=== PATIENT | male | born 1960 | race Caucasian/White ===

== ENCOUNTER → 2018-09-01 20:15 | Outpatient (REF) | payer OTHER, MEDICAID, SELFPAY ==
[2018-09-01 20:33] LABS: Add Manual Diff / Slide Review NO; Basophils Absolute Auto 0 /uL (0-100); Basophils Percent Auto 0.7 % (0-2); Eosinophils Absolute Auto 200 /uL (0-450); Eosinophils Percent Auto 3.9 % (2-4); Hematocrit 44.3 % (41-53); Hemoglobin 15.2 g/dL (13.5-17.5); Lymphocytes Absolute Auto 1000 /uL (1100-4500); Lymphocytes Percent Auto 19.1 % (25-40); Mean Corpuscular HGB Conc 34.3 % (30-36); Mean Corpuscular Hemoglobin 31.6 PG (26-34); Mean Corpuscular Volume 92.1 fL (80-100); Monocytes Absolute Auto 600 /uL (0-900); Monocytes Percent Auto 12.2 % (3-14); Neutrophils Absolute Auto 3300 /uL (1500-7000); Neutrophils Percent Auto 64.1 % (50-75); Platelet Count 230 X10^3/uL (150-400); Red Blood Cell Count 4.81 X10^6/uL (4.5-5.9); Red Cell Distribution Width 14.2 % (11.6-14.8); White Blood Cell Count 5.2 X10^3/uL (4.5-11.0)
[2018-09-02 02:19] LABS: Alanine Aminotransferase 33 IU/L (21-72); Albumin 4.3 g/dL (3.5-5.0); Albumin Globulin Ratio 1.7 (1.0-2.8); Alkaline Phosphatase 76 U/L (38-126); Aspartate Aminotransferase 25 IU/L (17-59); Bilirubin Total 0.3 mg/dL (0.2-1.3); Blood Urea Nitrogen 14 mg/dL (9-20); Calcium 9.4 mg/dL (8.4-10.2); Carbon Dioxide 26 mmol/L (22-32); Chloride 102 mmol/L (98-107); Estimated Glomerular Filt Rate > 60.0 mL/min (>60); Globulin 2.6 g/dL (1.7-4.1); Glucose 89 mg/dL (70-100); HEMOLYSIS < 15 (0-50); Sodium 139 mmol/L (137-145); Total Protein 6.9 g/dL (6.3-8.2)
[2018-09-02 02:50] LABS: Prostate Specific Antigen 5.31 ng/mL (0.10-4.00)
== END ==
LOC: LAB 20:15
PROVIDERS: Visit Provider Physician Assistant Medical
DX: N40.0 Benign prostatic hyperplasia without lower urinary tract symptoms (principal); R45.1 Restlessness and agitation; Z13.88 Encounter for screening for disorder due to exposure to contaminants; Z79.899 Other long term (current) drug therapy
CPT/HCPCS: 36415; 80053; 83825; 84153; 85025

== ENCOUNTER → 2018-09-12 17:50 | Outpatient (REF) | payer OTHER, MEDICAID, SELFPAY ==
[2018-09-16 14:51] LABS: Arsenic < 2 mcg/L (< 23); Lead, Blood 1 mcg/dL (< 5)
[2018-09-17 13:34] LABS: Mercury, Blood < 2
== END ==
LOC: LAB 17:50
PROVIDERS: Visit Provider Physician Assistant Medical
DX: Z13.88 Encounter for screening for disorder due to exposure to contaminants (principal)
CPT/HCPCS: 36415; 83825

== ENCOUNTER 2022-05-08 10:40 | Inpatient (IN) | payer MEDICARE, MEDICAID, OTHER, SELFPAY ==
[2022-05-08] VITALS (16 sets, daily range): BP systolic 112–140; BP diastolic 68–91; PULSE 83–164; RESP 16–58; TEMP 36.4–37; O2SAT 93–97; BMI 25.0
[2022-05-08] MEDS: SODIUM CHLORIDE 0.9% 1,000 ML 1000 ML IV (11:35)
[2022-05-08] MEDS: PHENobarbital 65 MG/ML VIAL 130 MG IV ×2 (11:35→13:48)
[2022-05-08] MEDS: LORazepam 2 MG/ML INJ 1 MG IV ×2 (11:37→12:42)
--- NOTE | 2022-05-08 11:39 | DI.CT.S_ITS ---
PROCEDURE: CT HEAD/BRAIN WO CON INDICATIONS: fall etoh TECHNIQUE: Noncontrast 4.5 mm thick angled axial sections acquired from the foramen magnum to the vertex, with coronal and sagittal reformats. For radiation dose reduction, the following was used: automated exposure control, adjustment of mA and/or kV according to patient size. COMPARISON: None. FINDINGS: Image quality: Excellent. CSF spaces: Basal cisterns are patent. No extra-axial fluid collections. Ventricles are normal in size and shape. Brain: No midline shift. No intracranial masses or hemorrhage. Vang-white matter interface is normal. Skull and face: Calvarium and visualized facial bones are intact, without suspicious lesions. Sinuses: Visualized sinuses and mastoids are clear. IMPRESSION: Atrophy and chronic ischemic change without intracranial hemorrhage or mass effect. Approved by: Mike Dodge M.D. on 05/08/2022 at 11:53
[2022-05-08 12:10] LABS: Add Manual Diff / Slide Review NO; Basophils Absolute Auto 0 /uL (0-100); Basophils Percent Auto 0.7 % (0-2); Eosinophils Absolute Auto 0 /uL (0-450); Hematocrit 44.8 % (41-53); Hemoglobin 15.4 g/dL (13.5-17.5); Lymphocytes Absolute Auto 200 /uL (1100-4500); Lymphocytes Percent Auto 4.8 % (25-40); Mean Corpuscular HGB Conc 34.3 % (30-36); Mean Corpuscular Hemoglobin 32.3 PG (26-34); Monocytes Absolute Auto 400 /uL (0-900); Monocytes Percent Auto 8.8 % (3-14); Neutrophils Absolute Auto 3700 /uL (1500-7000); Neutrophils Percent Auto 85.7 % (50-75); Platelet Count 105 X10^3/uL (150-400); Red Blood Cell Count 4.76 X10^6/uL (4.5-5.9); Red Cell Distribution Width 15.3 % (11.6-14.8); White Blood Cell Count 4.3 X10^3/uL (4.5-11.0)
[2022-05-08 12:15] LABS: INR 1.2 (0.9-1.3); Prothrombin Time 13.3 SECONDS (10.1-12.7)
[2022-05-08 12:18] LABS: PTT Partial Thromboplastin Tim 34 SECONDS (26-36)
[2022-05-08 12:20] LABS: Alanine Aminotransferase 68 IU/L (<50); Albumin 4.6 g/dL (3.5-5.0); Albumin Globulin Ratio 1.4 (1.0-2.8); Alkaline Phosphatase 94 U/L (38-126); Aspartate Aminotransferase 78 IU/L (17-59); BUN Creatinine Ratio 13.7 (6-22); Bilirubin Total 1.1 mg/dL (0.2-1.3); Blood Urea Nitrogen 7 mg/dL (9-20); Calcium 8.9 mg/dL (8.4-10.2); Carbon Dioxide 25 mmol/L (22-32); Chloride 102 mmol/L (98-107); Creatine Kinase 203 U/L (55-170); Estimated Glomerular Filt Rate > 60 mL/min (>60); Ethanol (ETOH) 122 mg/dL; Globulin 3.4 g/dL (1.7-4.1); Glucose 92 mg/dL (80-110); HEMOLYSIS < 15 (0-50); Lipase 170 U/L (23-300); Potassium 3.7 mmol/L (3.4-5.1); Sodium 141 mmol/L (137-145)
[2022-05-08 12:21] LABS: Lactate (Lactic Acid) 1.3 mmol/L (0.7-2.1)
[2022-05-08 12:30] LABS: Troponin I < 0.012 ng/mL (0.01-0.034)
[2022-05-08 12:35] LABS: Creatine Kinase MB 4.14 ng/mL (<2.37)
--- NOTE | 2022-05-08 13:29 | ED_ITS ---
HPI - Alcohol General Chief Complaint: Toxicology Problem Stated Complaint: Withdrawal ETOH Time Seen by Provider: 05/08/22 11:15 Source: patient and EMS Mode of arrival: Ambulatory History of Present Illness HPI narrative: Patient is a 61-year-old male who has history of essential tremor and atrial fibrillation along alcohol abuse. He has been sober intermittently a number of times over the past 20 years. He was previously sober for about 18 months started drinking 12 pack-a-day of beer for the last 3 weeks. His last drink he says was on Saturday 2 days ago. He is shaking uncontrollably noted to be in AFib with RVR. He denies any chest pain or palpitations. He says that he is supposed to take metoprolol for his AFib. He also reports that he fell about 2 weeks ago trip and fall. May have hit his head unknown if he lost con sciousness. He is no numbness tingling or weakness or other symptoms. Also complaining of left rib pain Related Data Home Medications Medication Instructions Recorded Confirmed No Known Home Medications 05/08/22 05/08/22 Allergies Allergy/AdvReac Type Severity Reaction Status Date / Time No Known Drug Allergies Allergy Verified 05/08/22 12:40 Review of Systems Review of Systems Narrative: GENERAL: Denies chills, fatigue, malaise, fever, sweats, travel HEENT: Denies sinus pain, ear pain, sore throat, difficulty swallowing, neck pain RESPIRATORY: Denies dyspnea, cough, wheezing, hemoptysis, sputum. CARDIOVASCULAR: See HPI GASTROINTESTINAL: Denies nausea, vomiting, abdominal pain, diarrhea, constipation, melena. : Denies dysuria, frequency, incontinence, hematuria, urinary retention, flank pain. MUSCULOSKELETAL: Denies weakness, joint pain, or bony pain SKIN: No rash, no erythema, no pruritus NEUROLOGIC: Denies weakness, dizziness, headache, numbness, change in speech, confusion PSYCHIATRIC: See HPI 12 point review of systems is negative except for those stated above and HPI Patient History Social History Smoking Status: Former smoker alcohol intake: current Smoking Status: Never smoker alcohol intake frequency: 3 or more drinks per day Alcohol type: beer Substance Use Type: does not use Exam Initial Vital Signs Initial Vital Signs: Vital Signs Temperature 98 F 05/08/22 11:15 Pulse Rate 164 H 12/13/22 11:15 Respiratory Rate 28 H 05/08/22 11:15 Blood Pressure 118/71 05/08/22 11:15 Pulse Oximetry 96 05/08/22 11:15 Oxygen Delivery Method 05/08/22 11:15 GENERAL: Alert tremulous 61-year-old male HEENT: Head atraumatic,EOMI, pupils reactive, face symmetric, moist mucous membranes CARDIOVASCULAR: Irregularly irregular without murmur RESPIRATORY: Breath sounds equal bilaterally, no wheezes rales or rhonchi. Tender left rib no paradoxical movement no subcutaneous air ABDOMEN: Soft, nontender. Normoactive bowel sounds all 4 quadrants. No guarding or rebound. : No CVA tenderness EXTREMITIES: Normal range of motion, no clubbing or edema. Neurovascularly intact NEUROLOGICAL: Alert and oriented x4.Normal gait and speech. Essential tremors shaking SKIN: Warm, dry, no laceration, no petechiae, no rashes or lesions. Course Orders Ordered: ED Orders 05/08/22 11:39 CT head/brain wo con Stat 05/08/22 11:40 EKG-12 Lead Stat 05/08/22 11:58 CBC Auto Diff [Complete Blood Count AUTO DIFF] Stat CMP [Comprehensive Metabolic Panel] Stat ETOH [Ethanol (ETOH)] Stat Lactate (Lactic Acid) Stat Lipase Stat Magnesium Urgent PT [Prothrombin Time INR] Stat PTT [Partial Thromboplastin Time] Stat cardiac panel [Troponin & CK Cardiac Panel] Stat 05/08/22 13:30 BNP [NT-proBNP (BNP-Adult 18+)] Stat 05/08/22 13:47 XR ribs LT min 3V w CXR1V Stat 05/08/22 15:15 Education, smoking cessation ONGOING 05/09/22 05:00 BMP [Basic Metabolic Panel] DAILY CBC Auto Diff [Complete Blood Count AUTO DIFF] DAILY 05/10/22 05:00 BMP [Basic Metabolic Panel] DAILY CBC Auto Diff [Complete Blood Count AUTO DIFF] DAILY 05/11/22 05:00 BMP [Basic Metabolic Panel] DAILY CBC Auto Diff [Complete Blood Count AUTO DIFF] DAILY Acetaminophen (Acetaminophen 325 Mg Tablet) 650 mg PO Q6H PRN PRN Reason: Fever/Mild Pain (1-3) Chlordiazepoxide HCl (Chlordiazepoxide 25 Mg Capsule) 50 mg PO Q6HR LANCE Folic Acid (Folic Acid 1 Mg Tablet) 1 mg PO DAILY [facility] Sodium Chloride (Normal Saline 0.9%) 1,000 mls @ 150 mls/hr IV CONT [facility] Last Infusion: 05/08/22 16:11 Dose: 0 mls/hr Documented By: Admin: 05/08/22 13:50 Dose: 150 mls/hr Documented By: FABRIZIO Thiamine HCl 100 mg/ Sodium (Chloride) 50 mls @ 200 mls/hr IV DAILY [facility] Lorazepam (Lorazepam 2 Mg/Ml Inj) 0 mg IV CIWAPRN PRN; Protocol PRN Reason: Alcohol Withdrawal Last Admin: 05/08/22 18:20 Dose: 2 mg Documented By: Admin: 05/08/22 17:31 Dose: 2 mg Documented By: MARILUZ Melatonin (Melatonin 3 Mg Tablet) 6 mg PO BEDTIME PRN PRN Reason: Insomnia Metoprolol Tartrate (Metoprolol Tartrate 5 Mg/5 Ml Inj) 5 mg IV Q5M PRN PRN Reason: HR >140, hold for SBP <100 Metoprolol Tartrate (Metoprolol Ir 25 Mg Tablet) 25 mg PO BID [facility] Multivitamins (Multivitamin 1 Tablet) 1 tab PO DAILY [facility] Naloxone HCl (Naloxone 0.4 Mg/Ml Vial) 0.2 mg IV Q2MIN PRN PRN Reason: Opiate Reversal Ondansetron HCl (Ondansetron 4 Mg/2 Ml Inj) 4 mg IV Q4HR [facility] Last Admin: 05/08/22 17:30 Dose: 4 mg Documented By: MARILUZ Polyethylene Glycol (Polyethylene Glycol 3350 17 Gm Powd.Pack) 17 gm PO DAILY PRN PRN Reason: Constipation Sennosides (Sennosides 8.6 Mg Tablet) 8.6 mg PO BID PRN PRN Reason: Constipation Tamsulosin HCl (Tamsulosin 0.4 Mg Capsule) 0.4 mg PO BEDTIME [facility] Discontinued Medications Diltiazem HCl (Diltiazem 5 Mg/Ml Sdv) 10 mg IV NOW ONE Stop: 05/08/22 13:38 Last Admin: 05/08/22 13:49 Dose: 10 mg Documented By: FABRIZIO Enoxaparin Sodium (Enoxaparin 40 Mg/0.4 Ml Syringe) 40 mg SUBCUT DAILY [facility] Sodium Chloride (Normal Saline 0.9%) 1,000 mls @ 1,000 mls/hr IV BOLUS ONE Stop: 05/08/22 12:14 Last Infusion: 05/08/22 12:48 Dose: 0 mls/hr Documented By: Admin: 05/08/22 11:35 Dose: 1,000 mls/hr Documented By: TAMMI Magnesium Sulfate (Magnesium Sulfate) 2 gm in 50 mls @ 25 mls/hr IV NOW ONE Stop: 05/08/22 18:02 Last Admin: 05/08/22 18:20 Dose: 25 mls/hr Documented By: MARILUZ Co-signed By: JOSEPH Lorazepam (Lorazepam 2 Mg/Ml Inj) 1 mg IV NOW ONE Stop: 05/08/22 11:16 Last Admin: 05/08/22 11:37 Dose: 1 mg Documented By: TAMMI Lorazepam (Lorazepam 2 Mg/Ml Inj) 1 mg IV NOW ONE Stop: 05/08/22 12:41 Last Admin: 05/08/22 12:42 Dose: 1 mg Documented By: TAMMI Lorazepam (Lorazepam 2 Mg/Ml Inj) 2 mg IV NOW ONE Stop: 05/08/22 14:56 Last Admin: 05/08/22 15:17 Dose: 2 mg Documented By: FABRIZIO Metoprolol Succinate (Metoprolol Er 25 Mg Tablet) 25 mg PO NOW ONE Stop: 05/08/22 14:56 Last Admin: 05/08/22 15:17 Dose: 25 mg Documented By: FABRIZIO Phenobarbital (Phenobarbital 65 Mg/Ml Vial) 130 mg IV NOW ONE Stop: 05/08/22 11:16 Last Admin: 05/08/22 11:35 Dose: 130 mg Documented By: TAMMI Phenobarbital (Phenobarbital 65 Mg/Ml Vial) 130 mg IV NOW ONE Stop: 05/08/22 13:38 Last Admin: 05/08/22 13:48 Dose: 130 mg Documented By: FABRIZIO Vital Signs Vital signs: Vital Signs - 8 hr 05/08/22 12:10 05/08/22 12:12 05/08/22 12:12 Pulse Rate 104 H 115 H Respiratory Rate 31 H Blood Pressure 112/79 Pulse Oximetry 94 05/08/22 12:30 05/08/22 12:30 05/08/22 13:00 Pulse Rate 107 H Respiratory Rate 17 Blood Pressure 140/68 122/74 Pulse Oximetry 94 05/08/22 13:00 05/08/22 13:30 05/08/22 13:30 Pulse Rate 105 H 122 H Respiratory Rate 19 58 H Blood Pressure 127/85 Pulse Oximetry 97 95 05/08/22 14:09 05/08/22 13:59 05/08/22 13:59 Pulse Rate 103 H 143 H Respiratory Rate Blood Pressure 133/77 Pulse Oximetry 94 05/08/22 14:00 05/08/22 14:30 05/08/22 15:00 Pulse Rate 129 H 104 H 122 H Respiratory Rate Blood Pressure Pulse Oximetry 93 93 05/08/22 15:30 Pulse Rate 103 H Respiratory Rate 16 Blood Pressure Pulse Oximetry MDM - Alcohol Lab Data Result diagrams: 05/08/22 11:58 05/08/22 11:58 Labs: Lab Results 05/08/22 05/08/22 05/08/22 Range/Units 11:58 11:58 11:58 WBC 4.3 L (4.5-11.0) X10^3/uL RBC 4.76 (4.5-5.9) X10^6/uL Hgb 15.4 (13.5-17.5) g/dL Hct 44.8 (41-53) % MCV 94.0 (80-100) fL MCH 32.3 (26-34) PG MCHC 34.3 (30-36) % RDW 15.3 H (11.6-14.8) % Plt Count 105 L (150-400) X10^3/uL Neut % (Auto) 85.7 H (50-75) % Lymph % (Auto) 4.8 L (25-40) % [place] % (Auto) 8.8 (3-14) % Eos % (Auto) 0.0 L (2-4) % Baso % (Auto) 0.7 (0-2) % Neut # (Auto) 3700 (0106-1709) /uL Lymph # (Auto) 200 L (1218-0729) /uL [place] # (Auto) 400 (0-900) /uL Eos # (Auto) 0 (0-450) /uL Baso # (Auto) 0 (0-100) /uL PT 13.3 H (10.1-12.7) SECONDS INR 1.2 (0.9-1.3) APTT 34 (26-36) SECONDS Sodium 141 (137-145) mmol/L Potassium 3.7 (3.4-5.1) mmol/L Chloride 102 (98-107) mmol/L Carbon Dioxide 25 (22-32) mmol/L BUN 7 L (9-20) mg/dL Creatinine 0.51 L (0.66-1.25) mg/dL Estimated GFR > 60 (>60) mL/min BUN/Creatinine Ratio 13.7 (6-22) Glucose 92 (80-110) mg/dL Lactate (0.7-2.1) mmol/L Calcium 8.9 (8.4-10.2) mg/dL Magnesium (1.6-2.3) mg/dL Total Bilirubin 1.1 (0.2-1.3) mg/dL AST 78 H (17-59) IU/L ALT 68 H (<50) IU/L Alkaline Phosphatase 94 (38-126) U/L Total Creatine Kinase 203 H (55-170) U/L CK-MB (CK-2) 4.14 H (<2.37) ng/mL CK-MB (CK-2) Rel Index 2.0 (1.5-5.0) % Troponin I < 0.012 (0.01-0.034) ng/mL NT-Pro-B Natriuret Pep (<125) pg/mL Total Protein 8.0 (6.3-8.2) g/dL Albumin 4.6 (3.5-5.0) g/dL Globulin 3.4 (1.7-4.1) g/dL Albumin/Globulin Ratio 1.4 (1.0-2.8) Lipase 170 (23-300) U/L Ethyl Alcohol 122 H ( - 10) mg/dL 05/08/22 05/08/22 05/08/22 Range/Units 11:58 11:58 13:30 WBC (4.5-11.0) X10^3/uL RBC (4.5-5.9) X10^6/uL Hgb (13.5-17.5) g/dL Hct (41-53) % MCV (80-100) fL MCH (26-34) PG MCHC (30-36) % RDW (11.6-14.8) % Plt Count (150-400) X10^3/uL Neut % (Auto) (50-75) % Lymph % (Auto) (25-40) % [place] % (Auto) (3-14) % Eos % (Auto) (2-4) % Baso % (Auto) (0-2) % Neut # (Auto) (9379-5556) /uL Lymph # (Auto) (0037-6921) /uL [place] # (Auto) (0-900) /uL Eos # (Auto) (0-450) /uL Baso # (Auto) (0-100) /uL PT (10.1-12.7) SECONDS INR (0.9-1.3) APTT (26-36) SECONDS Sodium (137-145) mmol/L Potassium (3.4-5.1) mmol/L Chloride (98-107) mmol/L Carbon Dioxide (22-32) mmol/L BUN (9-20) mg/dL Creatinine (0.66-1.25) mg/dL Estimated GFR (>60) mL/min BUN/Creatinine Ratio (6-22) Glucose (80-110) mg/dL Lactate 1.3 (0.7-2.1) mmol/L Calcium (8.4-10.2) mg/dL Magnesium 1.7 (1.6-2.3) mg/dL Total Bilirubin (0.2-1.3) mg/dL AST (17-59) IU/L ALT (<50) IU/L Alkaline Phosphatase (38-126) U/L Total Creatine Kinase (55-170) U/L CK-MB (CK-2) (<2.37) ng/mL CK-MB (CK-2) Rel Index (1.5-5.0) % Troponin I (0.01-0.034) ng/mL NT-Pro-B Natriuret Pep 56 (<125) pg/mL Total Protein (6.3-8.2) g/dL Albumin (3.5-5.0) g/dL Globulin (1.7-4.1) g/dL Albumin/Globulin Ratio (1.0-2.8) Lipase (23-300) U/L Ethyl Alcohol ( - 10) mg/dL Imaging Data CT scan - head: Radiologist's Impressoin: Signed Patient: Dawson Ojeda#: [id number] : 1960 Acct:[id number] Age/Sex: 61 / M Date of Service: 05/08/22 Loc: ED Accession Number: [id number] ?? Procedure: CT head/brain wo con Ordering Provider: Judith Campbell D.O. PROCEDURE:? CT HEAD/BRAIN WO CON ? INDICATIONS:? fall etoh ? TECHNIQUE:? Noncontrast 4.5 mm thick angled axial sections acquired from the foramen magnum to the vertex, with coronal and sagittal reformats.? For radiation dose reduction, the following was used:? automated exposure control, adjustment of mA and/or kV according to p atient size.? ? COMPARISON:? None. ? FINDINGS:? Image quality:? Excellent.? ? CSF spaces:? Basal cisterns are patent.? No extra-axial fluid collections.? Ventricles are normal in size and shape.? ? Brain:? No midline shift.? No intracranial masses or hemorrhage.? Vang-white matter interface is normal.? ? Skull and face:? Calvarium and visualized facial bones are intact, without suspicious lesions.? ? Sinuses:? Visualized sinuses and mastoids are clear.? ? IMPRESSION:? Atrophy and chronic ischemic change without intracranial hemorrhage or mass effect. ? ? ? Approved by: Mike Dodge M.D. on 05/08/2022 at 11:53? Chest x-ray: Radiologist's Impressoin: XRay Report Signed Patient: Dawson Ojeda MR#: [id number] : 1960 Acct:[id number] Age/Sex: 61 / M Date of Service: 05/08/22 Loc: ED Accession Number: [id number] ?? Procedure: XR ribs LT min 3V w CXR1V Ordering Provider: Judith Campbell D.O. PROCEDURE:? XR RIBS LT MIN 3V W CXR1V ? INDICATIONS:? pain fall ? TECHNIQUE:? 4 views of the left ribs were acquired, along with a single view chest.? ? COMPARISON:? [facility], CT, CT HEAD/BRAIN WO CON, 05/08/2022, 11:43. ? FINDINGS:? ? Surgical changes and devices:? None.? ? Bones and chest wall:? No fractures or dislocations.? No suspicious bony lesions.? Overlying soft tissues appear unremarkable.? ? Lungs and pleura:? Trace left pleural fluid collection concerning for hemothorax.? No pneumothorax.? Lungs appear clear.? ? Mediastinum:? Mediastinal contours appear normal.? Mildly displaced left 9th rib fracture and nondisplaced left 8th rib fracture.? Heart size is normal.? ? IMPRESSION:? ? Left 8th and 9th rib fractures. ? Trace left-sided pleural fluid collection concerning for hemothorax. ? ? Dictated by: Macarena Whitley MD, PhD on 05/08/2022 at 14:28 ? ? Approved by: Macarena Whitley MD, PhD on 05/08/2022 at 14:31 ECG Data Interpretation: Atrial fibrillation rate [address] changes no prior EKGs MDM Narrative Medical decision making narrative: Patient reports taking an alcohol withdrawal reports that his last drink of alcohol was 2 days ago although alcohol level today is 122. Noted to be in AFib with RVR he has a known history of atrial fibrillation. He is rate controlled with doses of diltiazem. He is given a couple doses of phenobarbital and Ativan to help with shaking. He does have a baseline essential tremor but this is definitely worse. Patient is found to have a left sided rib fracture from his fall a couple of weeks ago. Trace effusion but he is not hypoxic at this time no intervention for the effusion. Patient is likely not a good candidate for anticoagulation for his chronic atrial fibrillation secondary to his alcohol use and fall risk. Dr. Kraus updated patient's symptoms test results and kindly accepts Discharge Plan Departure Patient Disposition: Admitted As Inpatient Clinical Impression: Alcohol withdrawal syndrome, Atrial fibrillation with rapid ventricular response Admit Date/Time: 05/08/22 15:41 Admit Provider: Corwin Kraus
--- NOTE | 2022-05-08 13:47 | DI.RAD.S_ITS ---
PROCEDURE: XR RIBS LT MIN 3V W CXR1V INDICATIONS: pain fall TECHNIQUE: 4 views of the left ribs were acquired, along with a single view chest. COMPARISON: [facility], CT, CT HEAD/BRAIN WO CON, 05/08/2022, 11:43. FINDINGS: Surgical changes and devices: None. Bones and chest wall: No fractures or dislocations. No suspicious bony lesions. Overlying soft tissues appear unremarkable. Lungs and pleura: Trace left pleural fluid collection concerning for hemothorax. No pneumothorax. Lungs appear clear. Mediastinum: Mediastinal contours appear normal. Mildly displaced left 9th rib fracture and nondisplaced left 8th rib fracture. Heart size is normal. IMPRESSION: Left 8th and 9th rib fractures. Trace left-sided pleural fluid collection concerning for hemothorax. Dictated by: Macarena Whitley MD, PhD on 05/08/2022 at 14:28 Approved by: Macarena Whitley MD, PhD on 05/08/2022 at 14:31
[2022-05-08] MEDS: dilTIAZem 5 MG/ML SDV 10 MG IV (13:49)
[2022-05-08] MEDS: SODIUM CHLORIDE 0.9% 1,000 ML 150 ML IV (13:50)
[2022-05-08 14:20] LABS: NT-proBNP (BNP-Adult 18+) 56 pg/mL (<125)
[2022-05-08] MEDS: METOPROLOL ER 25 MG TABLET PO (15:17)
[2022-05-08] MEDS: LORazepam 2 MG/ML INJ IV ×3 (15:17→18:20)
[2022-05-08 15:27] LABS: Magnesium 1.7 mg/dL (1.6-2.3)
[2022-05-08] MEDS: ONDANSETRON 4 MG/2 ML INJ IV ×2 (17:30→21:04)
[2022-05-08 18:02] LABS: COVID19 - ADMIT (NP swab/PCR) Negative (Negative)
[2022-05-08] MEDS: MAGNESIUM SULFATE 2 GM/50 ML PIGGYBACK IV (18:20)
--- NOTE | 2022-05-08 18:21 | P.HP_ITS ---
History of Present Illness History of Present Illness Date Patient Seen: 05/08/22 Chief complaint: Withdrawal ETOH Narrative: Dawson Ojeda is a 61yo M with PMH of A-fib on baby aspirin, alcohol dependence, essential tremor, BPH and depression who presents with alcohol withdrawals and A-fib RVR. Patient has drank alcohol since age 8 years old and has been an alcoholic all his life. He has had 3 prior periods of sobriety with the longest being 5 years and the most recent being in Apr. He has drank everyday since then up to 12 pack of beer daily. Last drink he says was saturday 05/05 which was 72hrs ago. Denies any history of withdrawal seizures. Doesn't use drugs or smoke cigarettes. Says he had a fall at home after tripping 2 weeks ago and has some left rib pain. Denies CP, SOB, NV, diarrhea or abd pain. In the ED found to be in A-fib RVR up to 160. Given dilt IV pushes with improvement to 120's. EtOH level 122. Elevated LFT's. CXR with left sided 8-9 rib fractures and trace hemothorax. Head CT negative. Patient History Family & Social History Social History: Prior Living Arrangements Homeless Safety & Behavioral: Feels Safe in Current Yes Environment Been Physically Hurt or No Threatened By a Person Tobacco & Substance use: Smoking Status Former smoker alcohol intake current alcohol intake frequency 3 or more drinks per day Substance Use Type marijuana Meds Home Medications and Allergies Home Medications Medication Instructions Recorded Confirmed Type No Known Home Medications 05/08/22 05/08/22 History Allergies Allergy/AdvReac Type Severity Reaction Status Date / Time No Known Drug Allergies Allergy Verified 05/08/22 12:40 Review of Systems Review of Systems Narrative: All other systems reviewed with the patient and are negative unless otherwise stated. Exam Vital Signs (past 8 hours): - 05/08/22 11:30 05/08/22 11:15 05/08/22 12:10 Temperature 98.5 F 98 F Pulse Rate 145 H 164 H 104 H Respiratory Rate 28 H Blood Pressure 134/91 H 118/71 Pulse Oximetry 97 96 Oxygen Delivery Method Room Air Room Air Oxygen Flow Rate 05/08/22 12:12 05/08/22 12:12 05/08/22 12:30 Temperature Pulse Rate 115 H Respiratory Rate 31 H Blood Pressure 112/79 140/68 Pulse Oximetry 94 Oxygen Delivery Method Oxygen Flow Rate 05/08/22 12:30 05/08/22 13:00 05/08/22 13:00 Temperature Pulse Rate 107 H 105 H Respiratory Rate 17 19 Blood Pressure 122/74 Pulse Oximetry 94 97 Oxygen Delivery Method Oxygen Flow Rate 05/08/22 13:30 05/08/22 13:30 05/08/22 14:09 Temperature Pulse Rate 122 H 103 H Respiratory Rate 58 H Blood Pressure 127/85 Pulse Oximetry 95 Oxygen Delivery Method Oxygen Flow Rate 05/08/22 13:59 05/08/22 13:59 05/08/22 14:00 Temperature Pulse Rate 143 H 129 H Respiratory Rate Blood Pressure 133/77 Pulse Oximetry 94 93 Oxygen Delivery Method Oxygen Flow Rate 05/08/22 14:30 05/08/22 15:00 05/08/22 15:30 Temperature Pulse Rate 104 H 122 H 103 H Respiratory Rate 16 Blood Pressure Pulse Oximetry 93 Oxygen Delivery Method Oxygen Flow Rate 05/08/22 16:00 05/08/22 17:50 05/08/22 16:14 Temperature 98.6 F Pulse Rate 105 H 105 H Respiratory Rate 17 20 Blood Pressure 125/76 Pulse Oximetry 95 Oxygen Delivery Method Room Air Oxygen Flow Rate 0 Oxygen Delivery Method Room Air Oxygen Flow Rate 0 Narrative Exam Narrative: GEN: very tremulous male who is calm and in no distress HEENT: moist mucous membranes, PERRL NECK: trachea midline, no JVD CV: regular rate and rhythm, no murmurs PULM: clear bilaterally ABD: soft, nontender, nondistended, no organomegaly EXT: warm and well perfused with no edema NEURO: awake, alert, oriented, nystagmus present with severe upper extremity tremor Objective Labs Result Diagrams: 05/08/22 11:58 05/08/22 11:58 Labs: Laboratory Results - last 24 hr 05/08/22 05/08/22 05/08/22 11:58 11:58 11:58 WBC 4.3 L RBC 4.76 Hgb 15.4 Hct 44.8 MCV 94.0 MCH 32.3 MCHC 34.3 RDW 15.3 H Plt Count 105 L Neut % (Auto) 85.7 H Lymph % (Auto) 4.8 L [place] % (Auto) 8.8 Eos % (Auto) 0.0 L Baso % (Auto) 0.7 Neut # (Auto) 3700 Lymph # (Auto) 200 L [place] # (Auto) 400 Eos # (Auto) 0 Baso # (Auto) 0 PT 13.3 H INR 1.2 APTT 34 Sodium 141 Potassium 3.7 Chloride 102 Carbon Dioxide 25 BUN 7 L Creatinine 0.51 L Estimated GFR > 60 BUN/Creatinine Ratio 13.7 Glucose 92 Lactate Calcium 8.9 Magnesium Total Bilirubin 1.1 AST 78 H ALT 68 H Alkaline Phosphatase 94 Total Creatine Kinase 203 H CK-MB (CK-2) 4.14 H CK-MB (CK-2) Rel Index 2.0 Troponin I < 0.012 NT-Pro-B Natriuret Pep Total Protein 8.0 Albumin 4.6 Globulin 3.4 Albumin/Globulin Ratio 1.4 Lipase 170 Ethyl Alcohol 122 H SARS-CoV-2 (PCR) 05/08/22 05/08/22 05/08/22 11:58 11:58 13:30 WBC RBC Hgb Hct MCV MCH MCHC RDW Plt Count Neut % (Auto) Lymph % (Auto) [place] % (Auto) Eos % (Auto) Baso % (Auto) Neut # (Auto) Lymph # (Auto) [place] # (Auto) Eos # (Auto) Baso # (Auto) PT INR APTT Sodium Potassium Chloride Carbon Dioxide BUN Creatinine Estimated GFR BUN/Creatinine Ratio Glucose Lactate 1.3 Calcium Magnesium 1.7 Total Bilirubin AST ALT Alkaline Phosphatase Total Creatine Kinase CK-MB (CK-2) CK-MB (CK-2) Rel Index Troponin I NT-Pro-B Natriuret Pep 56 Total Protein Albumin Globulin Albumin/Globulin Ratio Lipase Ethyl Alcohol SARS-CoV-2 (PCR) 05/08/22 15:44 WBC RBC Hgb Hct MCV MCH MCHC RDW Plt Count Neut % (Auto) Lymph % (Auto) [place] % (Auto) Eos % (Auto) Baso % (Auto) Neut # (Auto) Lymph # (Auto) [place] # (Auto) Eos # (Auto) Baso # (Auto) PT INR APTT Sodium Potassium Chloride Carbon Dioxide BUN Creatinine Estimated GFR BUN/Creatinine Ratio Glucose Lactate Calcium Magnesium Total Bilirubin AST ALT Alkaline Phosphatase Total Creatine Kinase CK-MB (CK-2) CK-MB (CK-2) Rel Index Troponin I NT-Pro-B Natriuret Pep Total Protein Albumin Globulin Albumin/Globulin Ratio Lipase Ethyl Alcohol SARS-CoV-2 (PCR) Negative Assessment & Plan Assessment & Plan narrative: # acute alcohol withdrawal -last drink 3 days prior, patient very tremulous on exam but some of this may be his essential tremor, having auditory hallucinations. Alcohol level still at 122. Nystagmus present on exam. -CIWA up to 21, continue ativan IV PRN per protocol -seizure precautions -thiamine, MV and folate -piccolo mechanic consult -consider phenobarb if patient's withdrawals significantly elevate -HELICOPTER MECHANIC consult for possible outpatient treatment # A-fib with RVR -chadsvasc <2, only takes baby aspirin. pt reports he hasn't been taking his metoprolol -start metoprolol 25mg BID with IV pushes as needed # left sided rib fractures from fall with trace hemothorax -hold DVT prophylaxis -patient's pain well controlled -heat CT in ED negative # BPH -continue home flomax Code status is full code. COVID negative. DVT prophylaxis with SCDs. Proxy is Hilary. I have reviewed home meds and used all available resources to reconcile the home meds. This patient will be admitted as inpatient and will require greater than 2 midnights of hospital time to treat alcohol withdrawals and AFib RVR. Time Spent With Patient Critical Care time: I spent a total of [] minutes of critical care time on this patient's care today; this time is exclusive of procedural time. Quality VTE Deep Vein Thrombosis/Pulmonary Embolism Present on Admission: No
[2022-05-08] MEDS: chlordiazePOXIDE 25 MG CAPSULE 50 MG PO (21:04)
[2022-05-08] MEDS: METOPROLOL IR 25 MG TABLET PO (21:04)
[2022-05-08] MEDS: TAMSULOSIN 0.4 MG CAPSULE PO (21:04)
[2022-05-09] VITALS (7 sets, daily range): BP systolic 109–127; BP diastolic 69–82; PULSE 74–94; RESP 16–22; TEMP 36.1–37.1; O2SAT 96–97
[2022-05-09] MEDS: ONDANSETRON 4 MG/2 ML INJ IV ×4 (02:19→20:56)
[2022-05-09] MEDS: SODIUM CHLORIDE 0.9% 1,000 ML 150 ML IV ×4 (02:23→23:36)
[2022-05-09] MEDS: chlordiazePOXIDE 25 MG CAPSULE 50 MG PO ×5 (02:32→23:30)
[2022-05-09 06:01] LABS: Hematocrit 41.9 % (41-53); Hemoglobin 14.3 g/dL (13.5-17.5); Lymphocytes Percent Auto 9.7 % (25-40); Mean Corpuscular HGB Conc 34.2 % (30-36); Mean Corpuscular Hemoglobin 32.4 PG (26-34); Mean Corpuscular Volume 94.5 fL (80-100); Neutrophils Percent Auto 75.2 % (50-75); Platelet Count 82 X10^3/uL (150-400); Red Blood Cell Count 4.43 X10^6/uL (4.5-5.9); Red Cell Distribution Width 15.8 % (11.6-14.8); White Blood Cell Count 5.2 X10^3/uL (4.5-11.0)
[2022-05-09 06:02] LABS: Add Manual Diff / Slide Review NO; Basophils Absolute Auto 0 /uL (0-100); Basophils Percent Auto 0.6 % (0-2); Eosinophils Absolute Auto 100 /uL (0-450); Eosinophils Percent Auto 1.1 % (2-4); Lymphocytes Absolute Auto 500 /uL (1100-4500); Monocytes Absolute Auto 700 /uL (0-900); Monocytes Percent Auto 13.4 % (3-14); Neutrophils Absolute Auto 3900 /uL (1500-7000)
[2022-05-09 06:26] LABS: BUN Creatinine Ratio 18.4 (6-22); Blood Urea Nitrogen 9 mg/dL (9-20); Calcium 8.7 mg/dL (8.4-10.2); Carbon Dioxide 28 mmol/L (22-32); Chloride 100 mmol/L (98-107); Estimated Glomerular Filt Rate > 60 mL/min (>60); Glucose 80 mg/dL (80-110); HEMOLYSIS < 15 (0-50); Potassium 3.1 mmol/L (3.4-5.1); Sodium 137 mmol/L (137-145)
--- NOTE | 2022-05-09 07:00 | PC.NURSE ---
Pt received mag rider overnight-K+ down to 3.1 from 3.7 yesterday. Reported lab to RACHEL Pacheco.
--- NOTE | 2022-05-09 07:02 | PM.PN.1 ---
Subjective Subjective Date Patient Seen: 05/09/22 Interval history: Patient feeling alot better today. Slept well. Still shaky but less so. Exam Vital Signs (past 8 hours): - 05/09/22 00:00 05/09/22 04:00 Temperature 98.3 F 98.3 F Pulse Rate 87 94 H Respiratory Rate 16 17 Blood Pressure 127/69 122/81 Pulse Oximetry 96 96 Oxygen Flow Rate 0 Oxygen Delivery Method Room Air Oxygen Flow Rate 0 Narrative Exam Narrative: GEN: alert male in NAD HEENT: moist mucous membranes, PERRL NECK: trachea midline, no JVD CV: regular rate and rhythm, no murmurs PULM: clear bilaterally ABD: soft, nontender, nondistended, no organomegaly EXT: warm and well perfused with no edema NEURO: awake, alert, oriented, improved tremors and nystagmus Objective Labs Result Diagrams: 05/09/22 05:14 05/09/22 05:14 Labs: Laboratory Results - last 24 hr 05/08/22 05/08/22 05/08/22 11:58 11:58 11:58 WBC 4.3 L RBC 4.76 Hgb 15.4 Hct 44.8 MCV 94.0 MCH 32.3 MCHC 34.3 RDW 15.3 H Plt Count 105 L Neut % (Auto) 85.7 H Lymph % (Auto) 4.8 L Cameron % (Auto) 8.8 Eos % (Auto) 0.0 L Baso % (Auto) 0.7 Neut # (Auto) 3700 Lymph # (Auto) 200 L Cameron # (Auto) 400 Eos # (Auto) 0 Baso # (Auto) 0 PT 13.3 H INR 1.2 APTT 34 Sodium 141 Potassium 3.7 Chloride 102 Carbon Dioxide 25 BUN 7 L Creatinine 0.51 L Estimated GFR > 60 BUN/Creatinine Ratio 13.7 Glucose 92 Lactate Calcium 8.9 Magnesium Total Bilirubin 1.1 AST 78 H ALT 68 H Alkaline Phosphatase 94 Total Creatine Kinase 203 H CK-MB (CK-2) 4.14 H CK-MB (CK-2) Rel Index 2.0 Troponin I < 0.012 NT-Pro-B Natriuret Pep Total Protein 8.0 Albumin 4.6 Globulin 3.4 Albumin/Globulin Ratio 1.4 Lipase 170 Ethyl Alcohol 122 H SARS-CoV-2 (PCR) 12/05/08/22 05/08/22 11:58 11:58 13:30 WBC RBC Hgb Hct MCV MCH MCHC RDW Plt Count Neut % (Auto) Lymph % (Auto) Cameron % (Auto) Eos % (Auto) Baso % (Auto) Neut # (Auto) Lymph # (Auto) Cameron # (Auto) Eos # (Auto) Baso # (Auto) PT INR APTT Sodium Potassium Chloride Carbon Dioxide BUN Creatinine Estimated GFR BUN/Creatinine Ratio Glucose Lactate 1.3 Calcium Magnesium 1.7 Total Bilirubin AST ALT Alkaline Phosphatase Total Creatine Kinase CK-MB (CK-2) CK-MB (CK-2) Rel Index Troponin I NT-Pro-B Natriuret Pep 56 Total Protein Albumin Globulin Albumin/Globulin Ratio Lipase Ethyl Alcohol SARS-CoV-2 (PCR) 05/08/22 05/09/22 05/09/22 15:44 05:14 05:14 WBC 5.2 RBC 4.43 L Hgb 14.3 Hct 41.9 MCV 94.5 MCH 32.4 MCHC 34.2 RDW 15.8 H Plt Count 82 L Neut % (Auto) 75.2 H Lymph % (Auto) 9.7 L Cameron % (Auto) 13.4 Eos % (Auto) 1.1 L Baso % (Auto) 0.6 Neut # (Auto) 3900 Lymph # (Auto) 500 L Cameron # (Auto) 700 Eos # (Auto) 100 Baso # (Auto) 0 PT INR APTT Sodium 137 Potassium 3.1 L Chloride 100 Carbon Dioxide 28 BUN 9 Creatinine 0.49 L Estimated GFR > 60 BUN/Creatinine Ratio 18.4 Glucose 80 Lactate Calcium 8.7 Magnesium Total Bilirubin AST ALT Alkaline Phosphatase Total Creatine Kinase CK-MB (CK-2) CK-MB (CK-2) Rel Index Troponin I NT-Pro-B Natriuret Pep Total Protein Albumin Globulin Albumin/Globulin Ratio Lipase Ethyl Alcohol SARS-CoV-2 (PCR) Negative [facility] Medical History (Updated 05/09/22 @ 15:44 by Belem Solano RN) Alcoholism Atrial fibrillation BPH (benign prostatic hyperplasia) Broken ribs Chronic back pain Collapsed lung Contraindication to anticoagulation therapy Depression Dizziness Former smoker Frequent falls Heart failure with reduced ejection fraction History of blood transfusion Hypertension Substance abuse Surgical History (Updated 05/09/22 @ 14:56 by Belem Solano RN) H/O adenoidectomy H/O colonoscopy with polypectomy History of inguinal hernia repair, bilateral Hx of tonsillectomy Social History household members: none Smoking Status: Former smoker alcohol intake: current Assessment & Plan Assessment & Plan narrative: # acute alcohol withdrawal, improving -last drink 3 days prior, patient very tremulous on exam but some of this may be his essential tremor, having auditory hallucinations. Alcohol level still at 122. Nystagmus present on exam. -CIWA up to 21, continue ativan IV/po PRN per protocol with librium 50mg q6h with eventual taper -seizure precautions -thiamine, MV and folate -environmental health and safety leader consult -consider phenobarb if patient's withdrawals significantly elevate -MANDREL PULLER consult for possible outpatient treatment # A-fib with component RVR resolved -chadsvasc <2, only takes baby aspirin. pt reports he hasn't been taking his metoprolol -continue metoprolol 25mg BID with IV pushes as needed -continue home aspirin daily # left sided rib fractures from fall with trace traumatic hemothorax -hold DVT prophylaxis -patient's pain well controlled -heat CT in ED negative # BPH -continue home flomax Code status is full code. COVID negative. DVT prophylaxis with SCDs. Proxy is Hilary. I have reviewed home meds and used all available resources to reconcile the home meds. Dispo: 1-2 more days until alcohol withdrawals improve. Time Spent With Patient Critical Care time: I spent a total of [] minutes of critical care time on this patient's care today; this time is exclusive of procedural time. Quality VTE Deep Vein Thrombosis/Pulmonary Embolism Present on Admission: No
[2022-05-09] MEDS: POTASSIUM CHLORIDE 20 MEQ TAB 40 MEQ PO (08:58)
[2022-05-09] MEDS: MULTIVITAMIN 1 TABLET 1 TAB PO (08:59)
[2022-05-09] MEDS: ACETAMINOPHEN 325 MG TABLET 650 MG PO ×2 (08:59→18:21)
[2022-05-09] MEDS: HYDROCODONE/ACET 5/325 TABLET 1 TAB PO ×2 (08:59→18:20)
[2022-05-09] MEDS: METOPROLOL IR 25 MG TABLET PO ×2 (09:00→20:56)
[2022-05-09] MEDS: FOLIC ACID 1 MG TABLET PO (09:00)
[2022-05-09] MEDS: THIAMINE 100 MG in SODIUM CHLORIDE 0.9% 50 ML 200 MG IV (09:05)
[2022-05-09] MEDS: LORazepam 1 MG TABLET PO ×2 (09:36→20:55)
--- NOTE | 2022-05-09 12:14 | CM.DANOTE ---
DCP Assessment: Payor confirmed: Medicare & Medicaid PCP: Unknown Pt is a 61 y.o. M who presented to the hospital with alcohol withdrawal symptoms. Pt brought up to the AC unit for further management of symptoms. DCP met with pt this afternoon to discuss needs. Pt sitting in bed with uncontrollable shakiness. DCP introduced herself and role. Pt states that he is currently living in his truck on Saturday. Pt states that his daughter also lives on Saturday but he is not living with her. He states he used to live with her but not anymore. Pt states that he does go to AA meetings. DCP provided resource list for pt. DCP to come back at a later time as pt is having some hallucinations. DCP to attempt to talk with him once pt has more mental clarity. P: Unclear needs at this time. Anticipate discharge back to Saturday. Aarti Rodas RN/LAVERN Discharge Planning/Care Management CM Discharge Assessment Start: 05/09/22 12:04 Freq: Status: Active Protocol: Document 05/09/22 12:12 [email or web address] (Rec: 05/09/22 12:14 [id number]) Discharge Planning Assessment Assigned Project Manager Process Development Aarti Rodas RN/LAVERN Advance Directives? No History Provided By Patient,Medical Record Prior Living Arrangements Homeless Comment Pt living in his truck Household Members none Type of transporation used prior to Drives own vehicle admit Independent with ADL's Yes Is patient alert and oriented? Yes Caregiver for Another No Transportation Arrangement Possible daughter Referrals Initiated Other Additional Comment Provided pt with resource list Whiteboard Updated in Patient Room with Yes name and ext. # of Project Manager Process Development Comment Instructed to call Review Status In Process Please Provide Date Initial DC 05/09/22 Assessment Was Performed Next Review Type Continued Stay Review
--- NOTE | 2022-05-09 20:08 | PM.CALLCOV.1 ---
Call Coverage Note Note Date of Patient Contact: 05/09/22 Narrative of Care Provided: He is requesting regular dose of gabapentin which was 600 mg TID. Start 300 mg TID and taper up.
[2022-05-09] MEDS: GABAPENTIN 300 MG CAPSULE PO (20:55)
[2022-05-09] MEDS: TAMSULOSIN 0.4 MG CAPSULE PO (20:56)
[2022-05-10] VITALS (9 sets, daily range): BP systolic 109–130; BP diastolic 64–85; PULSE 77–114; RESP 16–23; TEMP 36.1–37.6; O2SAT 92–98
[2022-05-10] MEDS: ONDANSETRON 4 MG/2 ML INJ IV ×3 (01:50→10:54)
[2022-05-10] MEDS: chlordiazePOXIDE 25 MG CAPSULE 50 MG PO ×3 (05:30→17:23)
[2022-05-10 05:43] LABS: Add Manual Diff / Slide Review NO; Basophils Absolute Auto 0 /uL (0-100); Basophils Percent Auto 1.2 % (0-2); Eosinophils Absolute Auto 200 /uL (0-450); Eosinophils Percent Auto 4.5 % (2-4); Hematocrit 43.3 % (41-53); Hemoglobin 14.5 g/dL (13.5-17.5); Lymphocytes Absolute Auto 600 /uL (1100-4500); Mean Corpuscular HGB Conc 33.5 % (30-36); Mean Corpuscular Hemoglobin 32.1 PG (26-34); Monocytes Absolute Auto 500 /uL (0-900); Monocytes Percent Auto 15.5 % (3-14); Neutrophils Absolute Auto 2100 /uL (1500-7000); Neutrophils Percent Auto 61.8 % (50-75); Platelet Count 78 X10^3/uL (150-400); Red Blood Cell Count 4.51 X10^6/uL (4.5-5.9); Red Cell Distribution Width 15.6 % (11.6-14.8); White Blood Cell Count 3.5 X10^3/uL (4.5-11.0)
[2022-05-10 05:59] LABS: BUN Creatinine Ratio 14.9 (6-22); Blood Urea Nitrogen 7 mg/dL (9-20); Calcium 8.3 mg/dL (8.4-10.2); Carbon Dioxide 27 mmol/L (22-32); Chloride 101 mmol/L (98-107); Estimated Glomerular Filt Rate > 60 mL/min (>60); Glucose 88 mg/dL (80-110); HEMOLYSIS < 15 (0-50); Potassium 3.2 mmol/L (3.4-5.1); Sodium 136 mmol/L (137-145)
[2022-05-10] MEDS: SODIUM CHLORIDE 0.9% 1,000 ML 150 ML IV ×2 (06:18→12:16)
--- NOTE | 2022-05-10 08:47 | PM.PN.1 ---
Subjective Subjective Interval history: Patient feeling better today with tremors still improving. He had trouble urinating today so a arreola was placed after almost 500cc were on bladder scan. Exam Vital Signs (past 8 hours): - 05/10/22 05:10 05/10/22 08:00 Temperature 99.6 F 98.5 F Pulse Rate 95 H 87 Respiratory Rate 18 20 Blood Pressure 122/64 128/80 Pulse Oximetry 97 96 Oxygen Flow Rate 0 0 Oxygen Delivery Method Room Air Oxygen Flow Rate 0 Narrative Exam Narrative: GEN: alert male in NAD, tremulous HEENT: moist mucous membranes, PERRL NECK: trachea midline, no JVD CV: regular rate and rhythm, no murmurs PULM: clear bilaterally ABD: soft, nontender, nondistended, no organomegaly EXT: warm and well perfused with no edema NEURO: awake, alert, oriented, improved tremors and nystagmus Objective Labs Result Diagrams: 05/10/22 05:10 05/10/22 05:10 Labs: Laboratory Results - last 24 hr 05/10/22 05/10/22 05:10 05:10 WBC 3.5 L RBC 4.51 Hgb 14.5 Hct 43.3 MCV 96.0 MCH 32.1 MCHC 33.5 RDW 15.6 H Plt Count 78 L Neut % (Auto) 61.8 Lymph % (Auto) 17.0 L Hardy % (Auto) 15.5 H Eos % (Auto) 4.5 H Baso % (Auto) 1.2 Neut # (Auto) 2100 Lymph # (Auto) 600 L Hardy # (Auto) 500 Eos # (Auto) 200 Baso # (Auto) 0 Sodium 136 L Potassium 3.2 L Chloride 101 Carbon Dioxide 27 BUN 7 L Creatinine 0.47 L Estimated GFR > 60 BUN/Creatinine Ratio 14.9 Glucose 88 Calcium 8.3 L PFSH Medical History (Updated 05/09/22 @ 15:44 by Belem Solano RN) Alcoholism Atrial fibrillation BPH (benign prostatic hyperplasia) Broken ribs Chronic back pain Collapsed lung Contraindication to anticoagulation therapy Depression Dizziness Former smoker Frequent falls Heart failure with reduced ejection fraction History of blood transfusion Hypertension Substance abuse Surgical History (Updated 05/09/22 @ 14:56 by Belem Solano RN) H/O adenoidectomy H/O colonoscopy with polypectomy History of inguinal hernia repair, bilateral Hx of tonsillectomy Social History household members: none Smoking Status: Former smoker alcohol intake: current Assessment & Plan Assessment & Plan narrative: # acute alcohol withdrawal, improving -last drink 3 days prior, patient very tremulous on exam but some of this may be his essential tremor, having auditory hallucinations. Alcohol level still at 122. Nystagmus present on exam. -CIWA up to 21, continue ativan IV/po PRN per protocol with librium 50mg q6h with eventual taper -seizure precautions -thiamine, MV and folate -maintenance team leader consulted -consider phenobarb if patient's withdrawals significantly elevate -TELEVISION INSTALLER HELPER consult for possible outpatient treatment # A-fib with component RVR resolved -chadsvasc <2, only takes baby aspirin. pt reports he hasn't been taking his metoprolol -continue metoprolol 25mg BID with IV pushes as needed -continue home aspirin daily # left sided rib fractures from fall with trace traumatic hemothorax -hold DVT prophylaxis -patient's pain well controlled -heat CT in ED negative # BPH -continue home flomax -increase to 0.8mg nightly due to retention -arreola now in place Code status is full code. COVID negative. DVT prophylaxis with SCDs. Proxy is Hilary. I have reviewed home meds and used all available resources to reconcile the home meds. Dispo: 1-2 more days until alcohol withdrawals improve. Time Spent With Patient Critical Care time: I spent a total of [] minutes of critical care time on this patient's care today; this time is exclusive of procedural time. Quality VTE Deep Vein Thrombosis/Pulmonary Embolism Present on Admission: No
[2022-05-10 09:38] LABS: Magnesium 1.7 mg/dL (1.6-2.3)
[2022-05-10] MEDS: GABAPENTIN 300 MG CAPSULE PO (10:48)
[2022-05-10] MEDS: MULTIVITAMIN 1 TABLET 1 TAB PO (10:48)
[2022-05-10] MEDS: POTASSIUM CHLORIDE 20 MEQ TAB 40 MEQ PO (10:49)
[2022-05-10] MEDS: ASPIRIN EC 81 MG TABLET PO (10:49)
[2022-05-10] MEDS: FOLIC ACID 1 MG TABLET PO (10:49)
[2022-05-10] MEDS: METOPROLOL IR 25 MG TABLET PO (10:49)
[2022-05-10] MEDS: LORazepam 2 MG/ML INJ IV ×2 (11:09→16:45)
[2022-05-10] MEDS: THIAMINE 100 MG in SODIUM CHLORIDE 0.9% 100 ML 404 MG IV (11:48)
[2022-05-10] MEDS: METOPROLOL TARTRATE 5 MG/5 ML INJ IV (11:50)
--- NOTE | 2022-05-10 12:45 | DIET.CONS ---
Dietary Consultation Note Admission Date: 05/08/2022 15:41 Assessment: 61y M admitted for etoh withdrawl referred to nutrition for the same. Pt resides in [place], currently homeless living in truck. Pt had 5th wheel he planned to live in which fell through due to argument and misunderstanding. Pt unable to live with daughter in her home so pt ended up in vehicle. Pt has long hx etoh use starting at age 8 while his parents were arguing, but states he is a binge drinker with intermittent use. Pt state he is a passive person, things tend to well up inside of him so he self-medicates with beer. Pt active in AA, states he just needs to learn how to communicate with people so he can cope without etoh. Pt relapsed with etoh in late February of this year due to unresolved conflict. Pt drinking 12 light beers daily with intermittent food consumption (usually a deli sandwich or pizza from [employer] daily). Pt with significant tremor (pt states baseline mild tremor as well), so much so pt unable to self-feed nor bring lidded cup with straw to mouth to sip water while taking PO meds. This RD assisted pt by holding cup, at which point he consumed 16oz water fairly quickly with no coughing. Pt requires 1:1 feeding at this time until tremor is less pronounced and pt able to self-feed effectively. Pt with nystigmus on folic acid, thiamine and MVI. CIWA 10-17 since admission. Pt with some hallucinations noted by RD during conversation- pt pointing to solar panel under table, though pt able to hold intelligent conversation. Ht: 187.96 cm Wt: 88.451 kg BMI: 25.0 Last BM: 05/08/22 (05/08/22 21:41) MNA: 11 Jonatan Score: 18 Diet: 05/08/22 Dinner Heart Healthy Diet Diet Modifications: Nutrition Percent Meal Consumed 100% 05/10/22 09:56 Percent Meal Consumed 75% 05/09/22 17:30 Percent Meal Consumed 50% 05/09/22 10:00 Labs: RBC 4.51 X10^6/uL (4.5-5.9) 05/10/22 05:10 Hgb 14.5 g/dL (13.5-17.5) 05/10/22 05:10 Hct 43.3 % (41-53) 05/10/22 05:10 Creatinine 0.47 mg/dL (0.66-1.25) L 05/10/22 05:10 Lactate 1.3 mmol/L (0.7-2.1) 05/08/22 11:58 NT-Pro-B Natriuret Pep 56 pg/mL (<125) 05/08/22 13:30 Nutrition Diagnosis: Acute Moderate Malnutrition r/t excessive etoh use aeb pt drinking 12 beers daily x6w, food recall meeting <50% EER x6w, pt with nystigmus, CIWA 10-17 since admission, pt requires 1:1 feeding r/t severe tremor. -The patient is at much higher risk for medical and surgical complications because of his malnutrition. This increases the difficulty and complexity of medical and surgical interventions and increases the chances of poor outcomes such as morbidity and mortality. Interventions: 1. 1:1 feeding of soft diet until tremor at baseline. 2. Recc continuation of vitamin supplementation with complete cessation of etoh use. 3. If pts POs <75% recc initiation of ONS to meet nutrition needs. Electronically Signed by: Bobbi Juarez 05/10/22 12:45 Clinical Dietitian [address] [address]
--- NOTE | 2022-05-10 14:21 | OT.IPNOTE ---
Check on pt for OT eval, pt 's nursing in the room for placement of arreola.
--- NOTE | 2022-05-10 14:43 | OT.IPNOTE ---
Pt now sleeping and per nursing okay to wait to see pt tomorrow for OT eval.
[2022-05-10] MEDS: GABAPENTIN 600 MG TABLET PO ×2 (14:50→19:54)
--- NOTE | 2022-05-10 15:00 | PT.IIE ---
Current Diagnoses Alcohol dependence with withdrawal, unspecified (05/08/22) Surgical History (Last Updated 05/09/22 @ 14:56 by Belem Solano, RN) H/O adenoidectomy H/O colonoscopy with polypectomy History of inguinal hernia repair, bilateral Hx of tonsillectomy Medical History (Last Updated 05/09/22 @ 15:44 by Belem Solano RN) Alcoholism Atrial fibrillation BPH (benign prostatic hyperplasia) Broken ribs Chronic back pain Collapsed lung Contraindication to anticoagulation therapy Depression Dizziness Former smoker Frequent falls Heart failure with reduced ejection fraction History of blood transfusion Hypertension Substance abuse Physical Therapy Inpatient Evaluation/Re-Eval M1 PT/OT-IP Prior Functional Status Start: 05/10/22 15:52 Freq: NEEDED Status: Active Protocol: Document 05/10/22 15:00 AB (Rec: 05/10/22 16:12 [facility] Medical Review Prior Functional Status Medical History Reviewed Yes Communication able to answer questions but with confusion Mobility and Gait pt stated that he is independent with all mobilities and ambulation without AD but stated that he has tripping on his R foot Social History Household Members none Living Arrangements Homeless Additional Social History Comment pt lives on his pick-up trunk; stated that his daughter might be able to assist him if needed and some friends pt uses the [employer]'s toilet for ~$4 dollars to use for toileting and shower needs M2 PT-IP Current Condition Start: 05/10/22 15:52 Freq: NEEDED Status: Active Protocol: Document 05/10/22 15:00 AB (Rec: 05/10/22 16:12 AB [email or web address]) Physical Therapy Current Condition Current Condition Evaluation Date 05/10/22 Treatment Diagnosis alcohol withdrawal; A-fib; difficulty in walking Onset Date 05/08/22 M3 PT-IP Subjective Start: 05/10/22 15:52 Freq: NEEDED Status: Active Protocol: Document 05/10/22 15:00 AB (Rec: 05/10/22 16:12 AB [email or web address]) Subjective Physical Therapy Visit Type Type Initial Evaluation Visit Start Time 15:00 Visit Stop Time 15:30 Total Visit Minutes 30 Number of LANDSCAPE CREW MEMBER Visits 0 Physical Therapy Visit Comments Patient Comments agreeable to do PT M4 PT-IP Mobility and Gait Start: 05/10/22 15:52 Freq: NEEDED Status: Active Protocol: Document 05/10/22 15:00 AB (Rec: 05/10/22 16:12 [email or web address]) PT-Bed Mobility Assessment Supine to Sit Supine to Sit Minimal Assistance,Head of Bed Elevated,Bedrails Scooting Scooting to Edge of Bed Maximum Assistance PT-Transfer Assessment Sit to and From Stand Sit to and from Stand Maximum Assistance,2 Person Assistance,Use of Upper Extremities Equipment Transfer Assistive Device Gait Belt,Front Wheeled Walker Orthotic/Prosthetic Devices or Brace: No Transfers Transfer Destination Chair Transfer Technique Stand Step Pivot Transfer Ability Level of Assist Maximum Assistance,2 Person Assistance,Use of Upper Extremities Comments Mobility Comments pt completed supine to sit min A and cues with HOB elevated. Pt with (+) tremors. pt able to sit on EOB CGA. max A for scooting to EOB. pt with difficulty following directions. completed sit to stand max A x 2 and max cues. presents with increase posterior trunk lean/pushing. cued for repositioning and use of FWW for support max A x 2 required . completed step transfer to chair using FWW max A x 2 and max cues with max A x 1-2 for controlled descent to chair. pt required assist with weight shifting and presents difficulty moving RLE during transfers. pt agreed to sit up on the chair. positioned on the chair. call light and table placed within reach. chair alarm on. PT-Balance Assessment Sitting Balance and Reactions Static Sitting Balance Ability Good Dynamic Sitting Balance Ability Fair Standing Balance and Reactions Static Standing Balance Ability Poor Dynamic Standing Balance Ability Poor Device Used FWW M5 PT-IP Objective Assessments Start: 05/10/22 15:52 Freq: NEEDED Status: Active Protocol: Document 05/10/22 15:00 AB (Rec: 05/10/22 16:12 [id number]) Orientation Orientation/Cognition Level of Alertness Alert Orientation Name Safety Awareness Decreased Safety Awareness Memory Description Short Term Impaired Comments with confusion Gross Range of Motion Lower Extremity ROM Assessment Within Functional Limits Strength Lower Extremity Strength Hip 4-/5 Knee 3+/5 Sensation Assessment Sensation Gross Sensation Right LE Impaired,Left LE Impaired Sensation Description Numbness Comments Sensation Comments chronic bilateral feet neuropathy Muscle Tone Muscle Tone WNL Yes M6 PT-IP Treatment Start: 05/10/22 15:52 Freq: NEEDED Status: Active Protocol: Document 05/10/22 15:00 AB (Rec: 05/10/22 16:12 [facility] Physical Therapy Treatment Education Education Provided Safety M7 PT-IP Assessment and Plan Start: 05/10/22 15:52 Freq: NEEDED Status: Active Protocol: Document 05/10/22 15:00 AB (Rec: 05/10/22 16:12 [id number]) PT Summary Assessment and Plan Potential Rehabilitation Potential Fair Status of Condition at Evaluation Evolving Summary Impairments Pain,ROM,Strength,Balance, Coordination,Sensation,Tone, Cognition,Bed Mobility, Transfers,Gait,Activity Tolerance Assessment Summary pt requiring max A x 2 with transfers using FWW with increase posterior trunk lean and max cues for all tasks. Pt with (+) trunk/extremities shaking affecting mobility and also has difficulty follow directions. pt may require SNF rehab at this time. will continue to assess progress. Goals Bed Mobility Goal Standby Assistance Transfer Goal Minimal Assistance,Front Wheeled Walker Gait Goal Minimal Assistance,Front Wheel Walker Gait Distance 50 Other Goals improve bed mobility mod I improve transfers and ambulation using FWW 100 ft SBA Days to Meet Goals 10 Frequency of Treatment Frequency Of Treatment Once a Day Treatment Plan Physical Therapy Treatment Plan Bed Mobility Training,Transfer Training,Gait Training, Therapeutic Exercise,Balance Retraining,Discharge Planning, Hot or Cold Pack,Neuromuscular Re-ed,Coordination Retraining ,Manual Therapy Precautions Other Precautions falls Recommendations To Nursing Amount of Assist Needed 2 Person Assist Discharge Recommendations PT Discharge Recommendations SNF Rehab Equipment Needed for Home Before FWW if pt goes home Discharge Transportation Needs at Discharge Wheelchair/Cabulance
[2022-05-10] MEDS: METOPROLOL IR 50 MG TABLET PO ×2 (18:29→19:55)
[2022-05-10] MEDS: MELATONIN 3 MG TABLET 6 MG PO (19:54)
[2022-05-10] MEDS: TAMSULOSIN 0.4 MG CAPSULE 0.8 MG PO (21:54)
[2022-05-11] VITALS (9 sets, daily range): BP systolic 92–132; BP diastolic 60–78; PULSE 60–93; RESP 16–20; TEMP 36.2–37.2; O2SAT 95–97
[2022-05-11] MEDS: chlordiazePOXIDE 25 MG CAPSULE 50 MG PO ×4 (01:07→18:19)
[2022-05-11 07:48] LABS: Add Manual Diff / Slide Review NO; Basophils Absolute Auto 0 /uL (0-100); Basophils Percent Auto 0.9 % (0-2); Eosinophils Absolute Auto 100 /uL (0-450); Eosinophils Percent Auto 2.8 % (2-4); Hematocrit 44.8 % (41-53); Hemoglobin 15.4 g/dL (13.5-17.5); Lymphocytes Absolute Auto 600 /uL (1100-4500); Lymphocytes Percent Auto 12.3 % (25-40); Mean Corpuscular HGB Conc 34.3 % (30-36); Mean Corpuscular Hemoglobin 32.6 PG (26-34); Mean Corpuscular Volume 95.1 fL (80-100); Monocytes Absolute Auto 800 /uL (0-900); Monocytes Percent Auto 15.7 % (3-14); Neutrophils Absolute Auto 3500 /uL (1500-7000); Neutrophils Percent Auto 68.3 % (50-75); Platelet Count 101 X10^3/uL (150-400); Red Blood Cell Count 4.72 X10^6/uL (4.5-5.9); Red Cell Distribution Width 15.3 % (11.6-14.8); White Blood Cell Count 5.2 X10^3/uL (4.5-11.0)
[2022-05-11 08:04] LABS: BUN Creatinine Ratio 19.6 (6-22); Blood Urea Nitrogen 11 mg/dL (9-20); Carbon Dioxide 25 mmol/L (22-32); Chloride 104 mmol/L (98-107); Estimated Glomerular Filt Rate > 60 mL/min (>60); Glucose 80 mg/dL (80-110); HEMOLYSIS < 15 (0-50); Potassium 3.3 mmol/L (3.4-5.1); Sodium 139 mmol/L (137-145)
--- NOTE | 2022-05-11 09:45 | PT.IPTN ---
Current Diagnoses Alcohol dependence with withdrawal, unspecified (05/08/22) Physical Therapy Treatment Note M2 PT-IP Current Condition Start: 05/10/22 15:52 Freq: NEEDED Status: Active Protocol: Document 05/11/22 08:30 AMB (Rec: 05/11/22 10:01 AMB [id number]) Physical Therapy Current Condition Current Condition Evaluation Date 05/10/22 Treatment Diagnosis alcohol withdrawal; A-fib; difficulty in walking Onset Date 05/08/22 M3 PT-IP Subjective Start: 05/10/22 15:52 Freq: NEEDED Status: Active Protocol: Document 05/11/22 08:30 AMB (Rec: 05/11/22 10:01 AMB [id number]) Subjective Physical Therapy Visit Type Type Treatment Note Visit Start Time 08:30 Visit Stop Time 08:50 Total Visit Minutes 20 Physical Therapy Visit Comments Patient Comments Pt asleep, once awake pt agreeable to get up for breakfast M4 PT-IP Mobility and Gait Start: 05/10/22 15:52 Freq: NEEDED Status: Active Protocol: Document 05/11/22 08:30 AMB (Rec: 05/11/22 10:01 AMB [id number]) PT-Bed Mobility Assessment Supine to Sit Supine to Sit Minimal Assistance,Head of Bed Elevated,Bedrails Scooting Scooting to Edge of Bed Minimal Assistance PT-Transfer Assessment Sit to and From Stand Sit to and from Stand Moderate Assistance,1 Person Assistance,Use of Upper Extremities Equipment Transfer Assistive Device Gait Belt,Front Wheeled Walker Orthotic/Prosthetic Devices or Brace: No Transfers Transfer Destination Chair Transfer Technique Stand Step Pivot Transfer Ability Level of Assist Moderate Assistance,1 Person Assistance,Use of Upper Extremities Comments Mobility Comments pt completed supine to sit min A and cues with HOB elevated. Pt with (+) tremors. pt able to sit on EOB CGA. min A for scooting to EOB with cues . pt with difficulty following directions/ confused but generally amiably confused. completed sit to stand max A x 2 and max cues. presents with increase posterior trunk lean/pushing. cued for repositioning and use of FWW for support max A x 2 required . completed step transfer to chair using FWW max A x 2 and max cues with max A x 1-2 for controlled descent to chair. pt required assist with weight shifting and presents difficulty moving RLE during transfers. pt agreed to sit up on the chair. positioned on the chair. call light and table placed within reach. chair alarm on. Gait Assessment Gait Gait Assistance Required: Moderate Assistance Distance (Feet) 10 Assistive Devices Assistive Device Gait Belt,Front Wheeled Walker Gait Deviations General Gait Pattern Ataxic,Decreased Stride Length ,Decreased Feet Clearance, Festinating Factors Limiting Gait Function Factors Limiting Gait Function Decreased Activity Tolerance, Decreased Strength,Difficulty Following Directions, Incoordination,Poor Balance, Poor Safety Awareness Comments Gait Comments Pt able to weightshift forward after about 2 minutes of standing with posterior lean and ModA to find balance. Did have flexed knees that worsened throughout gait. Walking 10' did take about 15 minutes due to very slow small steps. Was fatigued. Left pt in chair in room to eat breakfast, call light within reach and with chair alarm on. [employer] made aware. PT-Balance Assessment Sitting Balance and Reactions Static Sitting Balance Ability Good Dynamic Sitting Balance Ability Fair Standing Balance and Reactions Static Standing Balance Ability Poor Dynamic Standing Balance Ability Poor Device Used FWW M5 PT-IP Objective Assessments Start: 05/10/22 15:52 Freq: NEEDED Status: Active Protocol: Document 05/10/22 15:00 AB (Rec: 05/10/22 16:12 AB [id number]) Orientation Orientation/Cognition Level of Alertness Alert Orientation Name Safety Awareness Decreased Safety Awareness Memory Description Short Term Impaired Comments with confusion Gross Range of Motion Lower Extremity ROM Assessment Within Functional Limits Strength Lower Extremity Strength Hip 4-/5 Knee 3+/5 Sensation Assessment Sensation Gross Sensation Right LE Impaired,Left LE Impaired Sensation Description Numbness Comments Sensation Comments chronic bilateral feet neuropathy Muscle Tone Muscle Tone WNL Yes M6 PT-IP Treatment Start: 05/10/22 15:52 Freq: NEEDED Status: Active Protocol: Document 05/10/22 15:00 AB (Rec: 05/10/22 16:12 AB [id number]) Physical Therapy Treatment Education Education Provided Safety M7 PT-IP Assessment and Plan Start: 05/10/22 15:52 Freq: NEEDED Status: Active Protocol: Document 05/11/22 08:30 AMB (Rec: 05/11/22 13:18 AMB [id number]) PT Summary Assessment and Plan Potential Rehabilitation Potential Fair Status of Condition at Evaluation Evolving Summary Impairments Pain,ROM,Strength,Balance, Coordination,Sensation,Tone, Cognition,Bed Mobility, Transfers,Gait,Activity Tolerance Assessment Summary Pt did show improvement today in comparison with eval. ModA x1 generally. Continued posterior lean, but better awareness of it stating i know I need to get forward more. Pt was very slow with gait, taking 15 min to ambulate 10' with tiny forward steps and increasing fatigue and knee/trunk flexion. Pt with (+) trunk/extremities shaking affecting mobility and also has difficulty follow directions. pt may require SNF rehab at this time, certainly is improving but would be unsafe mobility tapia at this point for anything other than SNF. Goals Bed Mobility Goal Standby Assistance Transfer Goal Minimal Assistance,Front Wheeled Walker Gait Goal Minimal Assistance,Front Wheel Walker Gait Distance 50 Other Goals improve bed mobility mod I improve transfers and ambulation using FWW 100 ft SBA Days to Meet Goals 10 Frequency of Treatment Frequency Of Treatment Once a Day Treatment Plan Physical Therapy Treatment Plan Bed Mobility Training,Transfer Training,Gait Training, Therapeutic Exercise,Balance Retraining,Discharge Planning, Hot or Cold Pack,Neuromuscular Re-ed,Coordination Retraining ,Manual Therapy Precautions Other Precautions falls Recommendations To Nursing Amount of Assist Needed 2 Person Assist Discharge Recommendations PT Discharge Recommendations SNF Rehab Equipment Needed for Home Before FWW if pt goes home Discharge Transportation Needs at Discharge Wheelchair/Cabulance
[2022-05-11] MEDS: THIAMINE 100 MG in SODIUM CHLORIDE 0.9% 100 ML 404 MG IV (11:04)
[2022-05-11] MEDS: ASPIRIN EC 81 MG TABLET PO (11:10)
[2022-05-11] MEDS: MULTIVITAMIN 1 TABLET 1 TAB PO (11:11)
[2022-05-11] MEDS: GABAPENTIN 600 MG TABLET PO ×2 (11:11→14:39)
[2022-05-11] MEDS: FOLIC ACID 1 MG TABLET PO (11:12)
[2022-05-11] MEDS: METOPROLOL IR 50 MG TABLET PO (11:12)
[2022-05-11] MEDS: POTASSIUM CHLORIDE 20 MEQ TAB PO ×2 (12:01→14:46)
--- NOTE | 2022-05-11 13:30 | OT.IP.EVAL ---
Current Diagnoses Alcohol dependence with withdrawal, unspecified (05/08/22) Past Medical History (Last Updated 05/09/22 @ 15:44 by Belem Solano RN) Alcoholism Atrial fibrillation BPH (benign prostatic hyperplasia) Broken ribs Chronic back pain Collapsed lung Contraindication to anticoagulation therapy Depression Dizziness Former smoker Frequent falls Heart failure with reduced ejection fraction History of blood transfusion Hypertension Substance abuse Surgical History (Last Updated 05/09/22 @ 14:56 by Belem Solano RN) H/O adenoidectomy H/O colonoscopy with polypectomy History of inguinal hernia repair, bilateral Hx of tonsillectomy Occupational Therapy Inpatient Evaluation/Re-Eval M1 PT/OT-IP Prior Functional Status Start: 05/10/22 15:52 Freq: NEEDED Status: Active Protocol: Document 05/11/22 13:06 [facility] (Rec: 05/11/22 14:19 [facility] [id number]) Medical Review Prior Functional Status Medical History Reviewed Yes Communication able to answer questions but with confusion Mobility and Gait pt stated that he is independent with all mobilities and ambulation without AD but stated that he has tripping on his R foot Activities of Daily Living and IADL's Pt states able to do his ADL's on her own. Social History Household Members none Living Arrangements Homeless Additional Social History Comment pt lives on his pick-up trunk; stated that his daughter might be able to assist him if needed and some friends pt uses the [employer] toilet for ~$4 dollars to use for toileting and shower needs M2 OT-IP Current Condition Start: 05/11/22 13:45 Freq: Status: Active Protocol: Document 05/11/22 13:06 [facility] (Rec: 05/11/22 14:19 [facility] [id number]) Occupational Therapy Current Condition Current Condition Evaluation Date 05/11/22 Treatment Diagnosis ETOH withdrawal , A-fib M3 OT- IP Subjective and Pain Start: 05/11/22 13:45 Freq: Status: Active Protocol: Document 05/11/22 13:06 [facility] (Rec: 05/11/22 14:19 [facility] [id number]) OT- Subjective Occupational Therapy Visit Type Type Initial Evaluation Visit Start Time 13:08 Visit Stop Time 13:30 Total Visit Minutes 22 Occupational Therapy Visit Comments Patient Comments Pt agreed to get up. Patient/Caregiver Goals To be able to be normal again. OT Pain Assessment Pain When Pain Assessed At Rest Pain Present Pain Present Denied Pain M4 OT- IP ADL's Start: 05/11/22 13:45 Freq: Status: Active Protocol: Document 05/11/22 13:06 [facility] (Rec: 05/11/22 14:19 [facility] [id number]) OT [id number]-[id number] Comments OT Self-Feeding Comments Pt has tremors in both hands and nursing aid states has been having to assist him. Pt may benefit from finger foods. OT ADL-Grooming General Evaluation Grooming Ability Standby Assistance Areas Needing Assistance Retrieving/Set-up of Grooming Items OT ADL-Oral Care General Eval Oral Care Ability Standby Assistance Areas of Assistance Retrieving/Set-Up of Items Comments Oral Care Comments Pt very tremulous but able to brush his teeth with increased time. Set-up to assist to put the toothpaste on the toothbrush. OT ADL-Dressing General Eval Upper Body Dressing Ability Moderate Assistance Lower Body Dressing Ability Maximum Assistance Comments OT Dressing Comments Pt needing assist to doff/bindu his gown. Pt needing assist to doff his right sock. Pt will need assist for pants as well due to decreased balance and tremors. OT ADL-Toileting General Evaluation Toileting Ability Total Assistance Comments OT Toileting Comments arreola in place OT ADL-Bathing Comments OT Bathing Comments Sponge bath more appropriate at this time. M5 OT- IP IADL's Start: 05/11/22 13:45 Freq: Status: Active Protocol: Document 05/11/22 13:06 [facility] (Rec: 05/11/22 14:19 [facility] [id number]) OT-Instrumental Activities of Daily Living Deficits IADL Deficits Identified Deficits M6 OT- IP Functional Cognition Start: 05/11/22 13:45 Freq: Status: Active Protocol: Document 05/11/22 13:06 [facility] (Rec: 05/11/22 14:19 [facility] [id number]) Cognitive Factors Limiting Selfcare Function Cognitive Ability Level of Alertness Alert Patient Orientation Name,Place,Situation Attention Span Ability Capable of Focused Attention, Capable of Sustained Attention Ability to Follow Commands Able to Follow One Step Commands Cognitive Comments Cognitive Assessment Comments Pt is talkative and able to follow commands for grooming, dressing, toileting needs, and mobility needs. M7 OT- IP Mobility and Balance Start: 05/11/22 13:45 Freq: Status: Active Protocol: Document 05/11/22 13:06 [facility] (Rec: 05/11/22 14:19 [facility] [id number]) OT-Transfer Assessment Sit to and From Stand Sit to and from Stand Maximum Assistance,1 Person Assistance OT- Balance Assessment Sitting Balance and Reactions Static Sitting Balance Ability Good Dynamic Sitting Balance Ability Fair Standing Balance and Reactions Static Standing Balance Ability Poor M8 OT- IP Objective Assessments Start: 05/11/22 13:45 Freq: Status: Active Protocol: Document 05/11/22 13:06 [facility] (Rec: 05/11/22 14:19 [facility] [id number]) OT Gross Range of Motion Upper Extremity Range of Motion ROM Impairments grossly WFL OT Strength Comments Strength Comments Pt 4/5 throughout OT- Coordination Assessment Comments Coordination Comments Pt very tremulous and decreased coordination. M9 OT- IP Assessment and Plan Start: 05/11/22 13:45 Freq: Status: Active Protocol: Document 05/11/22 13:06 [facility] (Rec: 05/11/22 14:19 [facility] [id number]) OT Summary Assessment and Plan Potential Rehabilitation Potential Fair Analytic Complexity at Evaluation Moderate Summary OT Impairments Balance,Functional Mobility, Grooming,Dressing,Toileting, Bathing,Toilet Transfers, Shower Transfers,Activity Tolerance Progress Towards Goals Slow Progress due to Medical Issues,Slow Progress due to Activity Tolerance Assessment Summary Pt MOD complexity and main barriers are decreased strength, coordination, balance, and now needing extensive assist for ADL and mobility needs. Pt needing MAX A for dressing and to some to stand with FWW at this time. Pt would benefit from skilled rehab. Goals Grooming Goal Independent Dressing Goal Independent Toileting Goal Independent Bathing Goal Independent Toilet Transfer Goal Independent Shower Transfer Goal Independent Days to Meet Goals 20 Frequency of Treatment Frequency Of Treatment Once a Day Treatment Plan OT Treatment Plan ADL Training,Functional Cognition Training,Functional Mobility,Patient/Family Education,Discharge Planning Other Treatment Recommendations and Next [place] [facility] [place] with Treatment Focus FWW Discharge Recommendations OT Discharge Recommendations SNF Rehab Transportation Needs at Discharge Wheelchair/Cabulance
[2022-05-11] MEDS: HYDROCODONE/ACET 5/325 TABLET 1 TAB PO (14:39)
--- NOTE | 2022-05-11 16:25 | P.PN_ITS ---
Subjective Subjective Interval history: 61-year-old gentleman with atrial fibrillation on aspirin, alcohol dependence, essential tremor, BPH, and depression who was admitted with alcohol withdrawal and AFib with RVR. Patient reports that he is slowly feeling better each day. He states he remains quite tremulous but overall is improving. No nausea or vomiting. No shortness of breath. He continues to require significant assist with transfers. He reports he is sleeping overall much better since he has not been drinking. CIWA scores have ranged from 8-10 yesterday. Last lorazepam was given at 4:45 p.m. yesterday. Exam Vital Signs (past 8 hours): - 05/11/22 09:20 05/11/22 10:15 05/11/22 14:47 Temperature 98.9 F 98.9 F 97.7 F Pulse Rate 61 93 H Respiratory Rate 16 17 Blood Pressure 92/60 93/61 Pulse Oximetry 96 96 96 Oxygen Flow Rate 0 0 0 Oxygen Delivery Method Room Air Oxygen Flow Rate 0 Narrative Exam Narrative: GEN: Pleasant middle-aged male, Alert and oriented x 3, tremulous, NAD HEENT:NC, Face symmetric CHEST: Respiratory excursions symmetric, CTAB CV: RRR, no M/R/G ABD: Soft, NT/ND, BT present in all 4 quadrants, no organomegaly or masses EXTR: warm, well perfused, no C/C/E SKIN: warm and dry, no rash NEURO: Alert and oriented x 3, nonfocal Objective Labs Result Diagrams: 05/11/22 05:18 05/11/22 05:18 Labs: Laboratory Results - last 24 hr 05/11/22 05/11/22 05:18 05:18 WBC 5.2 RBC 4.72 Hgb 15.4 Hct 44.8 MCV 95.1 MCH 32.6 MCHC 34.3 RDW 15.3 H Plt Count 101 L Neut % (Auto) 68.3 Lymph % (Auto) 12.3 L [place] % (Auto) 15.7 H Eos % (Auto) 2.8 Baso % (Auto) 0.9 Neut # (Auto) 3500 Lymph # (Auto) 600 L [place] # (Auto) 800 Eos # (Auto) 100 Baso # (Auto) 0 Sodium 139 Potassium 3.3 L Chloride 104 Carbon Dioxide 25 BUN 11 Creatinine 0.56 L Estimated GFR > 60 BUN/Creatinine Ratio 19.6 Glucose 80 Calcium 9.0 [facility] Medical History (Updated 05/09/22 @ 15:44 by Belem Solano RN) Alcoholism Atrial fibrillation BPH (benign prostatic hyperplasia) Broken ribs Chronic back pain Collapsed lung Contraindication to anticoagulation therapy Depression Dizziness Former smoker Frequent falls Heart failure with reduced ejection fraction History of blood transfusion Hypertension Substance abuse Surgical History (Updated 05/09/22 @ 14:56 by Belem Solano RN) H/O adenoidectomy H/O colonoscopy with polypectomy History of inguinal hernia repair, bilateral Hx of tonsillectomy Social History household members: none Smoking Status: Former smoker alcohol intake: current Assessment & Plan Assessment & Plan narrative: 1. Alcohol dependence with withdrawal Patient last drink 3 days prior to admission. He does continue to have significant tremulousness. Some of that is likely exacerbated by his underlying essential tremor. No need for benzodiazepines in the last 20 hours. Continues to require significant assistance from staff with his mobility. Continue thiamine, multivitamin and folate. 2. AFib with RVR RVR has now been controlled. Patient is on daily aspirin. Resumed his usual home dose of metoprolol with good effect. CHADS2 Vasc score less than 2. 3. Left-sided rib fracture secondary to a fall with trace traumatic hemothorax Holding chemical DVT prophylaxis. Patient remained stable without symptoms. 4. BPH Continue Flomax. 5. Thrombocytopenia Platelet count is gradually improving and is up to 101 today. Suspected etiology is marrow suppression from alcohol. 6. Hypokalemia Will replete. Continue to monitor. Magnesium level has been normal. Code status Full Prophylaxis Chemical prophylaxis deferred secondary to traumatic hemothorax Disposition Possible home tomorrow Time Spent With Patient Critical Care time: I spent a total of [] minutes of critical care time on this patient's care today; this time is exclusive of procedural time. Quality VTE Deep Vein Thrombosis/Pulmonary Embolism Present on Admission: No
[2022-05-11] MEDS: LORazepam 2 MG/ML INJ IV ×3 (16:38→17:47)
[2022-05-12] VITALS: BP 109/69; PULSE 77; RESP 22; TEMP 36.4; O2SAT 95
[2022-05-12 04:00] VITALS: BP 98/70; PULSE 87; RESP 22; TEMP 36.4; O2SAT 96
[2022-05-12] MEDS: HYDROCODONE/ACET 5/325 TABLET 1 TAB PO ×2 (04:07→12:18)
[2022-05-12] MEDS: chlordiazePOXIDE 25 MG CAPSULE 50 MG PO ×4 (05:26→23:42)
[2022-05-12 05:46] LABS: Add Manual Diff / Slide Review NO; Basophils Absolute Auto 0 /uL (0-100); Basophils Percent Auto 1.1 % (0-2); Eosinophils Absolute Auto 200 /uL (0-450); Eosinophils Percent Auto 4.8 % (2-4); Hematocrit 46.3 % (41-53); Hemoglobin 15.6 g/dL (13.5-17.5); Lymphocytes Absolute Auto 700 /uL (1100-4500); Lymphocytes Percent Auto 16.3 % (25-40); Mean Corpuscular HGB Conc 33.8 % (30-36); Mean Corpuscular Hemoglobin 32.5 PG (26-34); Mean Corpuscular Volume 96.3 fL (80-100); Monocytes Absolute Auto 900 /uL (0-900); Monocytes Percent Auto 21.9 % (3-14); Neutrophils Absolute Auto 2400 /uL (1500-7000); Neutrophils Percent Auto 55.9 % (50-75); Platelet Count 115 X10^3/uL (150-400); Red Cell Distribution Width 15.2 % (11.6-14.8); White Blood Cell Count 4.2 X10^3/uL (4.5-11.0)
[2022-05-12 05:58] LABS: BUN Creatinine Ratio 25.4 (6-22); Blood Urea Nitrogen 16 mg/dL (9-20); Carbon Dioxide 25 mmol/L (22-32); Chloride 104 mmol/L (98-107); Estimated Glomerular Filt Rate > 60 mL/min (>60); Glucose 93 mg/dL (80-110); HEMOLYSIS < 15 (0-50); Magnesium 1.7 mg/dL (1.6-2.3); Potassium 3.8 mmol/L (3.4-5.1); Sodium 137 mmol/L (137-145)
[2022-05-12 07:51] VITALS: BP 101/66; PULSE 84; RESP 19; TEMP 36.6; O2SAT 95
--- NOTE | 2022-05-12 08:00 | P.DS_ITS ---
History of Present Illness History of Present Illness Date Patient Seen: 05/12/22 Chief complaint: Withdrawal ETOH Discharge Providers Provider Date of admission: 05/08/22 15:41 Primary care physician: Doctor Bharathi MD Consults: 05/08/22 17:49 Consult to Dietitian, Adult Routine Comment: Reason For Exam: Assessed as high risk 05/08/22 18:55 Consult to [employer] - [employer] Testing Technician Routine Comment: 05/10/22 12:28 Consult to Occupational Therapy Evaluate & Treat Comment: Physician Instructions: Evaluate and treat Consult to Physical Therapy Evaluate & Treat Comment: Physician Instructions: Evaluate and Treat Discharge provider: León Acevedo MD Summary Hospital Course Hospital Course: 1. Alcohol dependence with withdrawal Patient last drink 3 days prior to admission.? He does continue to have significant tremulousness.? Some of that is likely exacerbated by his underlying essential tremor.? No need for benzodiazepines in the last 20 hours.? Continues to require significant assistance from staff with his mobility.? Continue thiamine, multivitamin and folate. 2. AFib with RVR RVR has now been controlled.? Patient is on daily aspirin.? Resumed his usual home dose of metoprolol with good effect.? CHADS2 Vasc score less than 2. 3. Left-sided rib fracture secondary to a fall with trace traumatic hemothorax Holding chemical DVT prophylaxis.? Patient remained stable without symptoms. 4. BPH Continue Flomax. 5. Thrombocytopenia Platelet count is gradually improving and is up to 101 today.? Suspected etiology is marrow suppression from alcohol. 6. Hypokalemia Will replete.? Continue to monitor.? Magnesium level has been normal. Code status Full Prophylaxis Chemical prophylaxis deferred secondary to traumatic hemothorax Disposition Possible home tomorrow Exam Vital Signs (past 8 hours): - 05/12/22 04:00 05/12/22 07:51 Temperature 97.6 F 98 F Pulse Rate 87 84 Respiratory Rate 22 19 Blood Pressure 98/70 101/66 Pulse Oximetry 96 95 Oxygen Flow Rate 0 Oxygen Delivery Method Room Air Oxygen Flow Rate 0 Objective Labs Result Diagrams: 05/12/22 04:54 05/12/22 04:54 Labs: Laboratory Results - last 24 hr 05/11/22 05/12/22 05/12/22 05:18 04:54 04:54 WBC 4.2 L RBC 4.80 Hgb 15.6 Hct 46.3 MCV 96.3 MCH 32.5 MCHC 33.8 RDW 15.2 H Plt Count 115 L Neut % (Auto) 55.9 Lymph % (Auto) 16.3 L [place] % (Auto) 21.9 H Eos % (Auto) 4.8 H Baso % (Auto) 1.1 Neut # (Auto) 2400 Lymph # (Auto) 700 L [place] # (Auto) 900 Eos # (Auto) 200 Baso # (Auto) 0 Sodium 139 137 Potassium 3.3 L 3.8 Chloride 104 104 Carbon Dioxide 25 25 BUN 11 16 Creatinine 0.56 L 0.63 L Estimated GFR > 60 > 60 BUN/Creatinine Ratio 19.6 25.4 H Glucose 80 93 Calcium 9.0 9.0 Magnesium 1.7 PFSH Medical History (Updated 05/09/22 @ 15:44 by Belem Solano RN) Alcoholism Atrial fibrillation BPH (benign prostatic hyperplasia) Broken ribs Chronic back pain Collapsed lung Contraindication to anticoagulation therapy Depression Dizziness Former smoker Frequent falls Heart failure with reduced ejection fraction History of blood transfusion Hypertension Substance abuse Surgical History (Updated 05/09/22 @ 14:56 by Belem Solano RN) H/O adenoidectomy H/O colonoscopy with polypectomy History of inguinal hernia repair, bilateral Hx of tonsillectomy Social History household members: none Smoking Status: Former smoker alcohol intake: current Discharge Plan Discharge orders & Medications Prescriptions: No Action aspirin 81 mg Tablet 81 mg PO DAILY gabapentin 600 mg Tablet 600 mg PO TID cyclobenzaprine 10 mg Tablet 10 mg PO DAILY PRN (Reason: muscle spasms) hydrocodone-acetaminophen 5-325 mg Tablet 1 tab PO DAILY tamsulosin [Flomax] 0.4 mg Capsule 0.4 mg PO BEDTIME Follow up/Referrals: Doctor Garvin MD [Primary Care Provider] - Discharge Data Primary Care Provider: Doctor Bharathi Quality VTE Deep Vein Thrombosis/Pulmonary Embolism Present on Admission: No
[2022-05-12] MEDS: FOLIC ACID 1 MG TABLET PO (09:04)
[2022-05-12] MEDS: ASPIRIN EC 81 MG TABLET PO (09:04)
[2022-05-12] MEDS: MAGNESIUM CHLORIDE 64 MG TABLET 128 MG PO (09:04)
[2022-05-12] MEDS: GABAPENTIN 600 MG TABLET PO ×3 (09:05→20:19)
[2022-05-12] MEDS: METOPROLOL IR 50 MG TABLET PO ×2 (09:05→20:18)
[2022-05-12] MEDS: MULTIVITAMIN 1 TABLET 1 TAB PO (09:06)
[2022-05-12] MEDS: THIAMINE 100 MG in SODIUM CHLORIDE 0.9% 100 ML 404 MG IV (09:11)
[2022-05-12 11:22] VITALS: BP 99/78; PULSE 78; RESP 16; TEMP 36.7; O2SAT 96
--- NOTE | 2022-05-12 13:20 | PT.IPTN ---
Current Diagnoses Alcohol dependence with withdrawal, unspecified (05/08/22) Physical Therapy Treatment Note M2 PT-IP Current Condition Start: 05/10/22 15:52 Freq: NEEDED Status: Active Protocol: Document 05/11/22 08:30 AMB (Rec: 05/11/22 10:01 AMB [id number]) Physical Therapy Current Condition Current Condition Evaluation Date 05/10/22 Treatment Diagnosis alcohol withdrawal; A-fib; difficulty in walking Onset Date 05/08/22 M3 PT-IP Subjective Start: 05/10/22 15:52 Freq: NEEDED Status: Active Protocol: Document 05/12/22 12:39 LJ (Rec: 05/12/22 13:20 LJ [id number]) Subjective Physical Therapy Visit Type Type Treatment Note Visit Start Time 12:08 Visit Stop Time 12:33 Total Visit Minutes 25 Physical Therapy Visit Comments Patient Comments Pt willing to get out of bed and attempt ambulation M4 PT-IP Mobility and Gait Start: 05/10/22 15:52 Freq: NEEDED Status: Active Protocol: Document 05/12/22 12:39 LJ (Rec: 05/12/22 13:20 LJ [id number]) PT-Bed Mobility Assessment Supine to Sit Supine to Sit Standby Assistance,Contact Guard Assistance,1 Person Assistance,Head of Bed Elevated,Bedrails Scooting Scooting to Edge of Bed Contact Guard Assistance PT-Transfer Assessment Sit to and From Stand Sit to and from Stand Moderate Assistance,2 Person Assistance,Use of Upper Extremities Equipment Transfer Assistive Device Gait Belt,Front Wheeled Walker Orthotic/Prosthetic Devices or Brace: No Transfers Transfer Destination Bed,Chair Transfer Technique ambulated Transfer Ability Level of Assist Moderate Assistance,1 Person Assistance,Use of Upper Extremities Comments Mobility Comments Pt sitting up in bed. Performed bed exercises with LEs then pt sat up independently and swung his legs off the side of the bed SBA. Pt able to scoot to edge of bed CGA. Pt able to balance on side of bed to perform seated exercises. Gait Assessment Gait Gait Assistance Required: Moderate Assistance Distance (Feet) 3 Assistive Devices Assistive Device Gait Belt,Front Wheeled Walker Gait Deviations General Gait Pattern Ataxic,Decreased Stride Length ,Decreased Feet Clearance, Festinating Factors Limiting Gait Function Factors Limiting Gait Function Decreased Activity Tolerance, Decreased Strength,Difficulty Following Directions, Incoordination,Poor Balance, Poor Safety Awareness Comments Gait Comments Pt unable to lift feet off floor but able to slowly slide them in the direction he needed to go to get to the chair then back to the bed. Pt first made his way to the chair taking very small steps then sat down without reaching back and but able to somewhat control the descent. Nursing gave pt meds and he sat for ~2 minutes then requested to go back to bed. Pt stood Wilbert x1 from chair with cues to lscoot forward first. He then walked 3' forward CGA to edge of bed . Pt sat down too far to the end of the bed and needed to stand again and move his buttokcs closer to the head of the bed. He was able to swing his legs onto the bed and position himself properly without assistance. Head of bed was lowered for getting back into the bed. PT-Balance Assessment Sitting Balance and Reactions Static Sitting Balance Ability Good Dynamic Sitting Balance Ability Fair Standing Balance and Reactions Static Standing Balance Ability Poor Dynamic Standing Balance Ability Poor Device Used FWW M5 PT-IP Objective Assessments Start: 05/10/22 15:52 Freq: NEEDED Status: Active Protocol: Document 05/10/22 15:00 AB (Rec: 05/10/22 16:12 AB [id number]) Orientation Orientation/Cognition Level of Alertness Alert Orientation Name Safety Awareness Decreased Safety Awareness Memory Description Short Term Impaired Comments with confusion Gross Range of Motion Lower Extremity ROM Assessment Within Functional Limits Strength Lower Extremity Strength Hip 4-/5 Knee 3+/5 Sensation Assessment Sensation Gross Sensation Right LE Impaired,Left LE Impaired Sensation Description Numbness Comments Sensation Comments chronic bilateral feet neuropathy Muscle Tone Muscle Tone WNL Yes M6 PT-IP Treatment Start: 05/10/22 15:52 Freq: NEEDED Status: Active Protocol: Document 05/12/22 12:39 ALVIN (Rec: 05/12/22 13:20 LJ [id number]) Physical Therapy Treatment Exercises Exercises Ankle Pumps,Gluteal Sets,Quad Sets,Straight Leg Raises,Short Arc Quads,Seated Knee Flexion /Extension Education Education Provided Safety Other Treatments Other Treatment Performed AAROM and stretching of hamstrings, calves, foot bilateral M7 PT-IP Assessment and Plan Start: 05/10/22 15:52 Freq: NEEDED Status: Active Protocol: Document 05/12/22 12:39 ALVIN (Rec: 05/12/22 13:20 LJ [id number]) PT Summary Assessment and Plan Potential Rehabilitation Potential Fair Status of Condition at Evaluation Evolving Summary Impairments Pain,ROM,Strength,Balance, Coordination,Sensation,Tone, Cognition,Bed Mobility, Transfers,Gait,Activity Tolerance Assessment Summary Pt mostly ModA x1 except for first time standing and getting his balance. Aain, continues to lean posteriorly but is aware of it stating i know I need to get forward more. Pt was very slow with gait, using very small steps with flexed knees and trunk. Pt tremors continue affecting mobility and function and will benefit from SNF to improve strength, mobility, and function. Goals Bed Mobility Goal Standby Assistance Transfer Goal Minimal Assistance,Front Wheeled Walker Gait Goal Minimal Assistance,Front Wheel Walker Gait Distance 50 Other Goals improve bed mobility mod I improve transfers and ambulation using FWW 100 ft SBA Days to Meet Goals 10 Frequency of Treatment Frequency Of Treatment Once a Day Treatment Plan Physical Therapy Treatment Plan Bed Mobility Training,Transfer Training,Gait Training, Therapeutic Exercise,Balance Retraining,Discharge Planning, Hot or Cold Pack,Neuromuscular Re-ed,Coordination Retraining ,Manual Therapy Precautions Other Precautions falls Recommendations To Nursing Amount of Assist Needed 2 Person Assist Discharge Recommendations PT Discharge Recommendations SNF Rehab Equipment Needed for Home Before FWW if pt goes home Discharge Transportation Needs at Discharge Wheelchair/Cabulance
--- NOTE | 2022-05-12 14:33 | PM.PN.1 ---
Subjective Subjective Date Patient Seen: 05/12/22 Interval history: He is seen today to follow-up his alcohol withdrawal, discharge plan challenges and difficulty urinating. During my visit he is quite social and interactive but at the same time is trying to urinate in a urinal in his bed. He is requesting that his gabapentin dose be increased to 600 mg t.i.d.. Physical therapy continues to recommend a shelter facility. He is still living in a truck because living with his daughter became controversial as he was possessing a gun that did not have a safety and that concerned her about the children. The BMP is normal. His daughter's name is Hilary. Exam Vital Signs (past 8 hours): - 05/12/22 07:51 05/12/22 11:22 Temperature 98 F 98.1 F Pulse Rate 84 78 Respiratory Rate 19 16 Blood Pressure 101/66 99/78 Pulse Oximetry 95 96 Oxygen Flow Rate 0 0 Oxygen Delivery Method Room Air Oxygen Flow Rate 0 Narrative Exam Narrative: Alert and oriented times 3, no apparent distress heart is regular rate and rhythm without murmur Lungs are clear to auscultation bilaterally Abdomen is soft, bowel sounds positive, nontender, no organomegaly. Extremities have no ankle edema. Objective Labs Result Diagrams: 05/12/22 04:54 05/12/22 04:54 Labs: Laboratory Results - last 24 hr 05/12/22 05/12/22 04:54 04:54 WBC 4.2 L RBC 4.80 Hgb 15.6 Hct 46.3 MCV 96.3 MCH 32.5 MCHC 33.8 RDW 15.2 H Plt Count 115 L Neut % (Auto) 55.9 Lymph % (Auto) 16.3 L [place] % (Auto) 21.9 H Eos % (Auto) 4.8 H Baso % (Auto) 1.1 Neut # (Auto) 2400 Lymph # (Auto) 700 L [place] # (Auto) 900 Eos # (Auto) 200 Baso # (Auto) 0 Sodium 137 Potassium 3.8 Chloride 104 Carbon Dioxide 25 BUN 16 Creatinine 0.63 L Estimated GFR > 60 BUN/Creatinine Ratio 25.4 H Glucose 93 Calcium 9.0 Magnesium 1.7 PFSH Medical History (Updated 05/09/22 @ 15:44 by Belem Solano RN) Alcoholism Atrial fibrillation BPH (benign prostatic hyperplasia) Broken ribs Chronic back pain Collapsed lung Contraindication to anticoagulation therapy Depression Dizziness Former smoker Frequent falls Heart failure with reduced ejection fraction History of blood transfusion Hypertension Substance abuse Surgical History (Updated 05/09/22 @ 14:56 by Belem Solano RN) H/O adenoidectomy H/O colonoscopy with polypectomy History of inguinal hernia repair, bilateral Hx of tonsillectomy Social History household members: none Smoking Status: Former smoker alcohol intake: current Assessment & Plan Assessment & Plan narrative: 1. Alcohol dependence with withdrawal Patient last drink 3 days prior to admission.? He does continue to have significant weakness but decreased tremor. He has an underlying essential tremor.? No need for benzodiazepines in the last 2 days.? Continues to require significant assistance from staff with his mobility.? Continue thiamine, multivitamin and folate. 05/12 -physical therapy has evaluated him and recommended shelter facility due to his ongoing weakness. 2. AFib with RVR RVR has now been controlled.? Patient is on daily aspirin.? Resumed his usual home dose of metoprolol with good effect.? CHADS2 Vasc score less than 2. 3. Left-sided rib fracture secondary to a fall with trace traumatic hemothorax Holding chemical DVT prophylaxis.? Patient remained stable without symptoms. 4. BPH Continue Flomax. 5. Thrombocytopenia Platelet count is gradually improving and is up to 115 today.? Suspected etiology is marrow suppression from alcohol. 6. Hypokalemia Corrected.? Continue to monitor.? Magnesium level has been normal. 7. Peripheral neuropathy Increase gabapentin up to 600 mg t.i.d. as requested. Code status Full Prophylaxis Chemical prophylaxis deferred secondary to traumatic hemothorax Disposition Possible SNF tomorrow Time Spent With Patient Critical Care time: I spent a total of [] minutes of critical care time on this patient's care today; this time is exclusive of procedural time. Quality VTE Deep Vein Thrombosis/Pulmonary Embolism Present on Admission: No
[2022-05-12 15:45] VITALS: BP 103/70; PULSE 80; RESP 18; TEMP 36.6; O2SAT 97
--- NOTE | 2022-05-12 15:54 | CM.DPC ---
DCP Cont: It is noted that patient is weak, will see how he does with P.T. Due to his being homeless, living in truck, most facilities likely will decline unless patient has a discharge plan. Will need to follow closely. P: DCP to continue to follow for needs. Kiya Hernandez RN/School Laboratory Technician
[2022-05-12] MEDS: HYDROCODONE/ACET 5/325 TABLET 2 TAB PO (17:54)
[2022-05-12 19:00] VITALS: BP 105/73; PULSE 104; RESP 15; TEMP 36.7; O2SAT 96
[2022-05-12] MEDS: TAMSULOSIN 0.4 MG CAPSULE 0.8 MG PO (20:18)
[2022-05-13] VITALS: BP 106/74; PULSE 79; RESP 19; TEMP 36.3; O2SAT 97
[2022-05-13 04:00] VITALS: BP 93/67; PULSE 76; RESP 18; TEMP 36.3; O2SAT 96
[2022-05-13] MEDS: chlordiazePOXIDE 25 MG CAPSULE 50 MG PO ×3 (06:02→18:31)
[2022-05-13] MEDS: HYDROCODONE/ACET 5/325 TABLET 2 TAB PO ×2 (06:03→19:47)
[2022-05-13 08:15] VITALS: BP 97/69; PULSE 80; RESP 17; TEMP 36.4; O2SAT 97
[2022-05-13] MEDS: FOLIC ACID 1 MG TABLET PO (10:36)
[2022-05-13] MEDS: ASPIRIN EC 81 MG TABLET PO (10:36)
[2022-05-13] MEDS: GABAPENTIN 600 MG TABLET PO ×2 (10:37→19:47)
[2022-05-13] MEDS: THIAMINE 100 MG in SODIUM CHLORIDE 0.9% 100 ML 404 MG IV (10:37)
[2022-05-13] MEDS: PROPRANOLOL 10 MG TABLET PO ×2 (10:37→19:47)
[2022-05-13] MEDS: MULTIVITAMIN 1 TABLET 1 TAB PO (10:37)
[2022-05-13] MEDS: LIDOCAINE PATCH 1 EACH ADH..PATCH TOP (10:39)
--- NOTE | 2022-05-13 12:27 | PC.NURSE ---
Addendum entered by Dalila Tyson R.N. 05/13/22 19:04: Patient heart up to 140s when standing and working with physical therapy, back down to 90s when sitting down in chair. Original Note: Assess- Patient is alert and oriented x4, he states that he does have some pain to his left rib from falling. Patient is teary eyed at times. He has essential tremors, he is clammy. Lidocaine patch applied to his l.side. Patient took medications well and he is tolerating food. Resting comfortably.
[2022-05-13 12:56] VITALS: BP 100/66; PULSE 78; RESP 16; TEMP 36.6; O2SAT 96
--- NOTE | 2022-05-13 15:38 | PM.PN.1 ---
Subjective Subjective Date Patient Seen: 05/13/22 Interval history: Has significant tremor, still cannot walk. He denies chest pain, shortness of breath, palpitations. Exam Vital Signs (past 8 hours): - 05/13/22 08:15 05/13/22 12:56 Temperature 97.6 F 98 F Pulse Rate 80 78 Respiratory Rate 17 16 Blood Pressure 97/69 100/66 Pulse Oximetry 97 96 Oxygen Flow Rate 0 0 Oxygen Delivery Method Room Air Oxygen Flow Rate 0 Narrative Exam Narrative: GEN: alert male in NAD HEENT: moist mucous membranes, PERRL NECK: trachea midline, no JVD CV: regular rate and rhythm, no murmurs PULM: clear bilaterally ABD: soft, nontender, nondistended, no organomegaly EXT: warm and well perfused with no edema NEURO: awake, alert, oriented, continued resting tremor and worsened with movement. Objective Labs Result Diagrams: 05/12/22 04:54 05/12/22 04:54 [facility] Medical History (Updated 05/09/22 @ 15:44 by Belem Solano RN) Alcoholism Atrial fibrillation BPH (benign prostatic hyperplasia) Broken ribs Chronic back pain Collapsed lung Contraindication to anticoagulation therapy Depression Dizziness Former smoker Frequent falls Heart failure with reduced ejection fraction History of blood transfusion Hypertension Substance abuse Surgical History (Updated 05/09/22 @ 14:56 by Belem Solano RN) H/O adenoidectomy H/O colonoscopy with polypectomy History of inguinal hernia repair, bilateral Hx of tonsillectomy Social History household members: none Smoking Status: Former smoker alcohol intake: current Assessment & Plan Assessment & Plan narrative: 1. Alcohol dependence with withdrawal Patient last drink 3 days prior to admission.? He does continue to have significant weakness but decreased tremor. He has an underlying essential tremor.? No need for benzodiazepines in the last 2 days.? Continues to require significant assistance from staff with his mobility.? Continue thiamine, multivitamin and folate. 05/12 -physical therapy has evaluated him and recommended assisted facility due to his ongoing weakness. -will attempt to start propranolol again, hold metoprolol in attempt to improve essential tremor in hopes of improving mobility for possible discharge home. 2. AFib with RVR RVR has now been controlled.? Patient is on daily aspirin.? Resumed his usual home dose of metoprolol with good effect however will attempt propranolol for essential tremor today. His previous reaction was GI upset so hopefully he can tolerate a lower dose. RVR may have been in setting of RVR. CHADS2 Vasc score less than 2. 3. Left-sided rib fracture secondary to a fall with trace traumatic hemothorax Holding chemical DVT prophylaxis.? Patient remained stable without symptoms. 4. BPH Continue Flomax. 5. Thrombocytopenia Platelet count is gradually improving and is up to 115 today.? Suspected etiology is marrow suppression from alcohol. 6. Hypokalemia Corrected.? Continue to monitor.? Magnesium level has been normal. 7. Peripheral neuropathy Increase gabapentin up to 600 mg t.i.d. as requested. Code status Full Prophylaxis Chemical prophylaxis deferred secondary to traumatic hemothorax Disposition Possible SNF, however placement has been difficult. Will continue to work on mobility as he has complex home social environement as well. Time Spent With Patient Critical Care time: I spent a total of [] minutes of critical care time on this patient's care today; this time is exclusive of procedural time. Quality VTE Deep Vein Thrombosis/Pulmonary Embolism Present on Admission: No
--- NOTE | 2022-05-13 16:31 | PT.IPTN ---
Current Diagnoses Alcohol dependence with withdrawal, unspecified (05/08/22) Physical Therapy Treatment Note M2 PT-IP Current Condition Start: 05/10/22 15:52 Freq: NEEDED Status: Active Protocol: Document 05/11/22 08:30 AMB (Rec: 05/11/22 10:01 AMB [id number]) Physical Therapy Current Condition Current Condition Evaluation Date 05/10/22 Treatment Diagnosis alcohol withdrawal; A-fib; difficulty in walking Onset Date 05/08/22 M3 PT-IP Subjective Start: 05/10/22 15:52 Freq: NEEDED Status: Active Protocol: Document 05/13/22 16:31 AW (Rec: 05/13/22 16:56 AW [id number]) Subjective Physical Therapy Visit Type Type Treatment Note Visit Start Time 16:05 Visit Stop Time 16:31 Total Visit Minutes 26 Physical Therapy Visit Comments Patient Comments Pt willing and motivated to participate with PT M4 PT-IP Mobility and Gait Start: 05/10/22 15:52 Freq: NEEDED Status: Active Protocol: Document 05/13/22 16:31 AW (Rec: 05/13/22 16:56 AW [id number]) PT-Bed Mobility Assessment Supine to Sit Supine to Sit Contact Guard Assistance, Minimal Assistance Scooting Scooting to Edge of Bed Contact Guard Assistance PT-Transfer Assessment Sit to and From Stand Sit to and from Stand Moderate Assistance,Maximum Assistance,1 Person Assistance ,Use of Upper Extremities Equipment Transfer Assistive Device Gait Belt,Front Wheeled Walker Orthotic/Prosthetic Devices or Brace: No Transfers Transfer Destination Chair Transfer Technique ambulated with FWW Transfer Ability Level of Assist Moderate Assistance,1 Person Assistance,Use of Upper Extremities Comments Mobility Comments Pt was lying in bed as PT arrived. BP 106/74 HR 83 per automated BP cuff. Pt needed CGA to sit up EOB and CGA while scooting forward due to excessive anterior trunk lean. Pt stood from the bed - attempting to stand with both hands on the walker but responding well to cues to push off the bed with at least one hand. In standing, he had strong posterior lean but responded well to cues to bring hips forward and to look out the window. Pt needed balance assist at all times and continued to brace himself with lower legs against the bed. Pt took one step forward and needed assist and cues to keep weight shifted forward. Pt was able to side step toward HOB using FWW mod A. HOSE CEMENTER advised PT that HR was up to 148. Pt was instructed to sit. Assessed BP at 105/73 HR 81. Radial pulse was faint but regular. Pt denied symptoms. He stated preference to sit in the chair. PT provided mod/max A to stand. Pt initiated sit to stand with both hands on the walker but then verbalized and followed through on strategy to push off the bed. Mod A to transfer to the chair with FWW. Pt positioned himself on the chair and was left with chair alarm on and call light within reach. Gait Assessment Gait Gait Assistance Required: Moderate Assistance,1 Person Assist Distance (Feet) 5 Assistive Devices Assistive Device Gait Belt,Front Wheeled Walker Gait Deviations General Gait Pattern Ataxic,Decreased Stride Length ,Decreased Feet Clearance, Festinating Factors Limiting Gait Function Factors Limiting Gait Function Decreased Activity Tolerance, Decreased Strength,Difficulty Following Directions, Incoordination,Poor Balance, Poor Safety Awareness Comments Gait Comments Pt had slight improvement in LE elevation today but continued to exhibit strong retro lean, needing mod/max A and cues for balance support. PT-Balance Assessment Sitting Balance and Reactions Static Sitting Balance Ability Good Dynamic Sitting Balance Ability Fair Standing Balance and Reactions Static Standing Balance Ability Poor Dynamic Standing Balance Ability Poor Device Used FWW M5 PT-IP Objective Assessments Start: 05/10/22 15:52 Freq: NEEDED Status: Active Protocol: Document 05/10/22 15:00 AB (Rec: 05/10/22 16:12 AB [id number]) Orientation Orientation/Cognition Level of Alertness Alert Orientation Name Safety Awareness Decreased Safety Awareness Memory Description Short Term Impaired Comments with confusion Gross Range of Motion Lower Extremity ROM Assessment Within Functional Limits Strength Lower Extremity Strength Hip 4-/5 Knee 3+/5 Sensation Assessment Sensation Gross Sensation Right LE Impaired,Left LE Impaired Sensation Description Numbness Comments Sensation Comments chronic bilateral feet neuropathy Muscle Tone Muscle Tone WNL Yes M6 PT-IP Treatment Start: 05/10/22 15:52 Freq: NEEDED Status: Active Protocol: Document 05/13/22 16:31 AW (Rec: 05/13/22 16:56 AW [id number]) Physical Therapy Treatment Education Education Provided Safety M7 PT-IP Assessment and Plan Start: 05/10/22 15:52 Freq: NEEDED Status: Active Protocol: Document 05/13/22 16:31 AW (Rec: 05/13/22 16:56 AW [id number]) PT Summary Assessment and Plan Potential Rehabilitation Potential Fair Status of Condition at Evaluation Evolving Summary Impairments Pain,ROM,Strength,Balance, Coordination,Sensation,Tone, Cognition,Bed Mobility, Transfers,Gait,Activity Tolerance Progress Towards Goals Slow Progress due to Medical Issues,Slow Progress - Other Assessment Summary Dawson is improving slowly with his safety awareness and insight into his condition but does remain somewhat impulsive. He is needing mod/ max A with mobility using FWW. He would benefit from SNF rehab to improve strength, mobility, and function. Goals Bed Mobility Goal Standby Assistance Transfer Goal Minimal Assistance,Front Wheeled Walker Gait Goal Minimal Assistance,Front Wheel Walker Gait Distance 50 Other Goals improve bed mobility mod I improve transfers and ambulation using FWW 100 ft SBA Days to Meet Goals 10 Frequency of Treatment Frequency Of Treatment Once a Day Treatment Plan Physical Therapy Treatment Plan Bed Mobility Training,Transfer Training,Gait Training, Therapeutic Exercise,Balance Retraining,Discharge Planning, Hot or Cold Pack,Neuromuscular Re-ed,Coordination Retraining ,Manual Therapy Precautions Other Precautions falls Recommendations To Nursing Amount of Assist Needed 2 Person Assist Discharge Recommendations PT Discharge Recommendations SNF Rehab Equipment Needed for Home Before FWW if pt goes home Discharge
--- NOTE | 2022-05-13 16:31 | CM.DPNOTE ---
Discharge Planning Note: Patient is pleasant with interaction. Continues with significant essential tremors. On CIWY protocol. He states his daughter has put the house up for sale on Saturday and is living with her new boyfriend. He states his plan is to return to living in his truck in Saturday and then take his care down to [place] to see family and then ultimately to move to [facility]. He states he is off of ETOH since 3 days prior to admission. Patient has been given resources. Called daughter Hilary, left message to return call tomorrow, Saturday am. Plan: Return to his truck on Saturday. Contact daughter for possible transportation back to [place] RN/DCP
[2022-05-13 16:42] VITALS: BP 98/71; PULSE 80; RESP 17; TEMP 36.6; O2SAT 97
[2022-05-13] MEDS: TAMSULOSIN 0.4 MG CAPSULE 0.8 MG PO (19:46)
[2022-05-13 20:00] VITALS: BP 95/58; PULSE 78; RESP 19; TEMP 37; O2SAT 96
[2022-05-14] VITALS: BP 114/76; PULSE 72; RESP 19; TEMP 36.5; O2SAT 97
[2022-05-14] MEDS: chlordiazePOXIDE 25 MG CAPSULE 50 MG PO ×2 (00:51→05:42)
[2022-05-14 04:00] VITALS: BP 99/65; PULSE 66; RESP 21; TEMP 36.1; O2SAT 98
[2022-05-14 05:14] LABS: Add Manual Diff / Slide Review NO; Basophils Absolute Auto 100 /uL (0-100); Basophils Percent Auto 2.1 % (0-2); Eosinophils Absolute Auto 200 /uL (0-450); Eosinophils Percent Auto 4.2 % (2-4); Hematocrit 44.1 % (41-53); Lymphocytes Absolute Auto 900 /uL (1100-4500); Lymphocytes Percent Auto 23.7 % (25-40); Mean Corpuscular HGB Conc 33.9 % (30-36); Mean Corpuscular Hemoglobin 32.6 PG (26-34); Mean Corpuscular Volume 96.3 fL (80-100); Monocytes Absolute Auto 1100 /uL (0-900); Monocytes Percent Auto 27.8 % (3-14); Neutrophils Absolute Auto 1600 /uL (1500-7000); Neutrophils Percent Auto 42.2 % (50-75); Platelet Count 163 X10^3/uL (150-400); Red Blood Cell Count 4.58 X10^6/uL (4.5-5.9); Red Cell Distribution Width 15.6 % (11.6-14.8); White Blood Cell Count 3.8 X10^3/uL (4.5-11.0)
[2022-05-14 05:34] LABS: Magnesium 1.9 mg/dL (1.6-2.3)
[2022-05-14 05:35] LABS: Blood Urea Nitrogen 14 mg/dL (9-20); Calcium 9.2 mg/dL (8.4-10.2); Carbon Dioxide 30 mmol/L (22-32); Chloride 102 mmol/L (98-107); Estimated Glomerular Filt Rate > 60 mL/min (>60); Glucose 88 mg/dL (80-110); HEMOLYSIS < 15 (0-50); Potassium 3.4 mmol/L (3.4-5.1); Sodium 138 mmol/L (137-145)
[2022-05-14] MEDS: HYDROCODONE/ACET 5/325 TABLET 1 TAB PO (05:41)
[2022-05-14] MEDS: SENNOSIDES 8.6 MG TABLET PO ×2 (05:42→18:40)
[2022-05-14 08:00] VITALS: BP 109/66; PULSE 77; RESP 21; TEMP 36.5; O2SAT 98
[2022-05-14] MEDS: GABAPENTIN 600 MG TABLET PO ×2 (08:27→21:31)
[2022-05-14] MEDS: FOLIC ACID 1 MG TABLET PO (08:27)
[2022-05-14] MEDS: MULTIVITAMIN 1 TABLET 1 TAB PO (08:27)
[2022-05-14] MEDS: ASPIRIN EC 81 MG TABLET PO (08:27)
[2022-05-14] MEDS: PROPRANOLOL 10 MG TABLET PO ×2 (08:27→21:31)
[2022-05-14] MEDS: LIDOCAINE PATCH 1 EACH ADH..PATCH TOP (10:27)
[2022-05-14] MEDS: THIAMINE 100 MG in SODIUM CHLORIDE 0.9% 100 ML 404 MG IV (10:27)
[2022-05-14 12:00] VITALS: BP 92/60; PULSE 88; RESP 21; TEMP 36.2; O2SAT 97
[2022-05-14] MEDS: chlordiazePOXIDE 10 MG CAPSULE 50 MG PO ×3 (13:09→23:31)
[2022-05-14] MEDS: POTASSIUM CHLORIDE 20 MEQ TAB 40 MEQ PO (13:09)
--- NOTE | 2022-05-14 14:48 | PT.IPTN ---
Current Diagnoses Alcohol dependence with withdrawal, unspecified (05/08/22) Physical Therapy Treatment Note M2 PT-IP Current Condition Start: 05/10/22 15:52 Freq: NEEDED Status: Active Protocol: Document 05/11/22 08:30 AMB (Rec: 05/11/22 10:01 AMB [id number]) Physical Therapy Current Condition Current Condition Evaluation Date 05/10/22 Treatment Diagnosis alcohol withdrawal; A-fib; difficulty in walking Onset Date 05/08/22 M3 PT-IP Subjective Start: 05/10/22 15:52 Freq: NEEDED Status: Active Protocol: Document 05/14/22 14:29 LJ (Rec: 05/14/22 14:48 LJ [id number]) Subjective Physical Therapy Visit Type Type Treatment Note Visit Start Time 14:03 Visit Stop Time 14:29 Total Visit Minutes 26 Physical Therapy Visit Comments Patient Comments Pt willing and motivated to participate with PT M4 PT-IP Mobility and Gait Start: 05/10/22 15:52 Freq: NEEDED Status: Active Protocol: Document 05/14/22 14:29 LJ (Rec: 05/14/22 14:48 LJ [id number]) PT-Bed Mobility Assessment Supine to Sit Supine to Sit Standby Assistance,Head of Bed Elevated Scooting Scooting to Edge of Bed Standby Assistance PT-Transfer Assessment Sit to and From Stand Sit to and from Stand Moderate Assistance,1 Person Assistance,Use of Upper Extremities Equipment Transfer Assistive Device Gait Belt,Front Wheeled Walker Orthotic/Prosthetic Devices or Brace: No Transfers Transfer Destination Chair Transfer Technique ambulated with FWW Transfer Ability Level of Assist Moderate Assistance,1 Person Assistance,Use of Upper Extremities Comments Mobility Comments Pt lying in bed upon arrival. Pt states he wants to get up and walk to see how far he can go. Able to get up and scoot to side of bed. Pt positioned his feet under himself without cueing this session. transfering to standing position reqired ModA and Max cues to lean forward, stand tall, push hips forward, and distribute weight on entire surface of foot rather than just on the heels. Pt stood for ~1 min to establish weight distribution and posture prior to ambulating. He was somewhat impulsive in beginning to walk when not steady. Pt cued to march in place before beginning to take steps. Pt complied then was cued to walk forward. He did a lap around the foot of the bed to door then turned around and ambulated back to the right side of the bed. Chair was pulled behind pt so that he could sit if necessary. Pt then stood ~30 sec. while chair was positioned behind him. He took several steps backwards then turned at the appropriate time with the appropriate angle and back to the chair but rather than reaching back to lower himself into the chair, he sat down heavily. Pt then asked to stand and try to lower himself in the chair with control using the armrests and his LEs . Pt stood half way up then reached [place] and lowered himself with control. He was left in the chair with alarm on and EXECUTIVE VICE PRESIDENT AND CHIEF FINANCIAL OFFICER in room changing his bedding. Gait Assessment Gait Gait Assistance Required: Moderate Assistance,1 Person Assist Distance (Feet) 30 Assistive Devices Assistive Device Gait Belt,Front Wheeled Walker Gait Deviations General Gait Pattern Antalgic,Decreased Stride Length,Decreased Feet Clearance,Flexed Trunk,Lateral Trunk Lean,Narrow Based Gait, Step-to Gait Factors Limiting Gait Function Factors Limiting Gait Function Decreased Activity Tolerance, Decreased Strength,Difficulty Following Directions, Incoordination,Poor Balance, Poor Safety Awareness Comments Gait Comments Pt improved ambulation endurance and distance. Still moving very slowly, requiring max cues. He had 2 episodes of balance loss to rear and left but was able to self correct with FWW. M5 PT-IP Objective Assessments Start: 05/10/22 15:52 Freq: NEEDED Status: Active Protocol: Document 05/10/22 15:00 AB (Rec: 05/10/22 16:12 AB [id number]) Orientation Orientation/Cognition Level of Alertness Alert Orientation Name Safety Awareness Decreased Safety Awareness Memory Description Short Term Impaired Comments with confusion Gross Range of Motion Lower Extremity ROM Assessment Within Functional Limits Strength Lower Extremity Strength Hip 4-/5 Knee 3+/5 Sensation Assessment Sensation Gross Sensation Right LE Impaired,Left LE Impaired Sensation Description Numbness Comments Sensation Comments chronic bilateral feet neuropathy Muscle Tone Muscle Tone WNL Yes M6 PT-IP Treatment Start: 05/10/22 15:52 Freq: NEEDED Status: Active Protocol: Document 05/14/22 14:29 ALVIN (Rec: 05/14/22 14:48 LJ [id number]) Physical Therapy Treatment Education Education Provided Safety M7 PT-IP Assessment and Plan Start: 05/10/22 15:52 Freq: NEEDED Status: Active Protocol: Document 05/14/22 14:29 ALVIN (Rec: 05/14/22 14:48 ALVIN [id number]) PT Summary Assessment and Plan Potential Rehabilitation Potential Fair Status of Condition at Evaluation Evolving Summary Impairments Pain,ROM,Strength,Balance, Coordination,Sensation,Tone, Cognition,Bed Mobility, Transfers,Gait,Activity Tolerance Progress Towards Goals Slow Progress due to Medical Issues,Slow Progress - Other Assessment Summary Dawson continues to improve slowly with his safety awareness and insight into his condition but does remain somewhat impulsive. He is needing modA with mobility using FWW. He would benefit from SNF rehab to improve strength, mobility, and function. Goals Bed Mobility Goal Standby Assistance Transfer Goal Minimal Assistance,Front Wheeled Walker Gait Goal Minimal Assistance,Front Wheel Walker Gait Distance 50 Other Goals improve bed mobility mod I improve transfers and ambulation using FWW 100 ft SBA Days to Meet Goals 10 Frequency of Treatment Frequency Of Treatment Once a Day Treatment Plan Physical Therapy Treatment Plan Bed Mobility Training,Transfer Training,Gait Training, Therapeutic Exercise,Balance Retraining,Discharge Planning, Hot or Cold Pack,Neuromuscular Re-ed,Coordination Retraining ,Manual Therapy Precautions Other Precautions falls Recommendations To Nursing Amount of Assist Needed 2 Person Assist Discharge Recommendations PT Discharge Recommendations SNF Rehab Equipment Needed for Home Before FWW if pt goes home Discharge
[2022-05-14 16:00] VITALS: BP 96/70; PULSE 94; RESP 17; TEMP 36.6; O2SAT 96
--- NOTE | 2022-05-14 16:08 | CM.DPC ---
DCP note continued HAND II CUTTER receives call from patient's daughter. Daughter reports concern for patient's drinking and states that she has not seen him for quite some time. Patient endorses she thought he was living in a trailer, shed or motel and using his disability funds to purchase alcohol. Daughter endorses concern that she does not have a place for patient to stay but will be willing to pick him up upon d/c since his truck is not in [place] as patient arrived to via EMS. HAND II CUTTER attempted to meet with patient today on two occasions and patient was unavailable. PT continues to recommend SNF rehab due to patient's weakness but patient is not appropriate for SNF rehab due to his living situation upon SNF d/c. Plan: HAND II CUTTER to meet with patient further and discuss POC needs, HAND II CUTTER to f/u further with patient's daughter. Isabel Javier, TARGET DEVELOPER
--- NOTE | 2022-05-14 16:35 | PM.PN.1 ---
Subjective Subjective Date Patient Seen: 05/14/22 Interval history: Tremor has improved somewhat, needs assistance to eat still but notices a good response to propranolol. No diarrhea, no chest pain or palpitations. Exam Vital Signs (past 8 hours): - 05/14/22 12:00 Temperature 97.1 F L Pulse Rate 88 Respiratory Rate 21 Blood Pressure 92/60 Pulse Oximetry 97 Oxygen Delivery Method Room Air Oxygen Flow Rate 0 Narrative Exam Narrative: GEN: alert male in NAD HEENT: moist mucous membranes, PERRL NECK: trachea midline, no JVD CV: regular rate and rhythm, no murmurs PULM: clear bilaterally ABD: soft, nontender, nondistended, no organomegaly EXT: warm and well perfused with no edema NEURO: awake, alert, oriented, continued resting tremor and worsened with movement. Objective Labs Result Diagrams: 05/14/22 04:35 05/14/22 04:35 Labs: Laboratory Results - last 24 hr 05/14/22 05/14/22 05/14/22 04:35 04:35 04:35 WBC 3.8 L RBC 4.58 Hgb 15.0 Hct 44.1 MCV 96.3 MCH 32.6 MCHC 33.9 RDW 15.6 H Plt Count 163 Neut % (Auto) 42.2 L Lymph % (Auto) 23.7 L [place] % (Auto) 27.8 H Eos % (Auto) 4.2 H Baso % (Auto) 2.1 H Neut # (Auto) 1600 Lymph # (Auto) 900 L [place] # (Auto) 1100 H Eos # (Auto) 200 Baso # (Auto) 100 Sodium 138 Potassium 3.4 Chloride 102 Carbon Dioxide 30 BUN 14 Creatinine 0.70 Estimated GFR > 60 BUN/Creatinine Ratio 20.0 Glucose 88 Calcium 9.2 Magnesium 1.9 PFSH Medical History (Updated 05/09/22 @ 15:44 by Belem Solano RN) Alcoholism Atrial fibrillation BPH (benign prostatic hyperplasia) Broken ribs Chronic back pain Collapsed lung Contraindication to anticoagulation therapy Depression Dizziness Former smoker Frequent falls Heart failure with reduced ejection fraction History of blood transfusion Hypertension Substance abuse Surgical History (Updated 05/09/22 @ 14:56 by Belem Solano RN) H/O adenoidectomy H/O colonoscopy with polypectomy History of inguinal hernia repair, bilateral Hx of tonsillectomy Social History household members: none Smoking Status: Former smoker alcohol intake: current Assessment & Plan Assessment & Plan narrative: 1. Alcohol dependence with withdrawal Patient last drink 3 days prior to admission.? He does continue to have significant weakness but decreased tremor. He also has an underlying essential tremor discussed below.? No need for benzodiazepines in the last 2 days.? Continues to require significant assistance from staff with his mobility.? Continue thiamine, multivitamin and folate. 05/12 -physical therapy has evaluated him and recommended nursing home facility due to his ongoing weakness. -will attempt to start propranolol again, hold metoprolol in attempt to improve essential tremor in hopes of improving mobility for possible discharge home. 2. AFib with RVR RVR has now been controlled.? Patient is on daily aspirin.? Resumed his usual home dose of metoprolol with good effect however will attempt propranolol for essential tremor today. His previous reaction was GI upset so hopefully he can tolerate a lower dose. RVR may have been in setting of RVR. CHADS2 Vasc score less than 2. 3. Left-sided rib fracture secondary to a fall with trace traumatic hemothorax Holding chemical DVT prophylaxis.? Patient remained stable without symptoms. 4. BPH Continue Flomax. 5. Thrombocytopenia Platelet count is gradually improving and is up to 115 today.? Suspected etiology is marrow suppression from alcohol. 6. Hypokalemia Corrected.? Continue to monitor.? Magnesium level has been normal. 7. Peripheral neuropathy Increase gabapentin up to 600 mg t.i.d. as requested. 8. Essential tremor - management as noted above in problem 1. - continue to increase propranolol for symptom control as tolerated (previously developed diarrhea with high doses), currently 10 mg BID Code status Full Prophylaxis Chemical prophylaxis deferred secondary to traumatic hemothorax Disposition Possible SNF, however placement has been difficult. Will continue to work on mobility as he has complex home social environement as well. Time Spent With Patient Critical Care time: I spent a total of [] minutes of critical care time on this patient's care today; this time is exclusive of procedural time. Quality VTE Deep Vein Thrombosis/Pulmonary Embolism Present on Admission: No
[2022-05-14 20:00] VITALS: BP 108/67; PULSE 81; RESP 22; TEMP 36.8; O2SAT 95
[2022-05-14] MEDS: TAMSULOSIN 0.4 MG CAPSULE 0.8 MG PO (21:31)
--- NOTE | 2022-05-15 00:17 | PC.NURSE ---
Pt awake. Up with PCT [place] walking a short distance and up in w/c around [place]. Pt offers no overt c/o.
[2022-05-15 01:00] VITALS: BP 96/60; PULSE 76; RESP 18; TEMP 36.4; O2SAT 96
[2022-05-15 05:40] LABS: BUN Creatinine Ratio 17.9 (6-22); Blood Urea Nitrogen 12 mg/dL (9-20); Calcium 9.3 mg/dL (8.4-10.2); Carbon Dioxide 32 mmol/L (22-32); Chloride 102 mmol/L (98-107); Estimated Glomerular Filt Rate > 60 mL/min (>60); Glucose 84 mg/dL (80-110); HEMOLYSIS < 15 (0-50); Potassium 3.8 mmol/L (3.4-5.1); Sodium 139 mmol/L (137-145)
[2022-05-15 05:45] VITALS: BP 98/57; PULSE 94; RESP 22; TEMP 36.7; O2SAT 98
[2022-05-15 05:45] LABS: Hematocrit 44.5 % (41-53); Mean Corpuscular HGB Conc 33.7 % (30-36); Mean Corpuscular Hemoglobin 32.5 PG (26-34); Mean Corpuscular Volume 96.6 fL (80-100); Platelet Count 185 X10^3/uL (150-400); Red Blood Cell Count 4.61 X10^6/uL (4.5-5.9); Red Cell Distribution Width 15.2 % (11.6-14.8); White Blood Cell Count 4.1 X10^3/uL (4.5-11.0)
[2022-05-15 05:48] LABS: Add Manual Diff / Slide Review YES
[2022-05-15] MEDS: chlordiazePOXIDE 10 MG CAPSULE 50 MG PO (05:55)
[2022-05-15 07:10] LABS: Neutrophils Absolute Manual 2050 /uL (3000-5900); Total Cells Counted 100
[2022-05-15 07:11] LABS: RBC Morphology Normal Morphology
[2022-05-15] MEDS: GABAPENTIN 600 MG TABLET PO ×2 (08:42→21:07)
[2022-05-15] MEDS: FOLIC ACID 1 MG TABLET PO (08:42)
[2022-05-15] MEDS: ASPIRIN EC 81 MG TABLET PO (08:42)
[2022-05-15] MEDS: THIAMINE 100 MG in SODIUM CHLORIDE 0.9% 100 ML 404 MG IV (08:42)
[2022-05-15] MEDS: PROPRANOLOL 10 MG TABLET PO (08:42)
[2022-05-15] MEDS: LIDOCAINE PATCH 1 EACH ADH..PATCH TOP (08:44)
[2022-05-15] MEDS: MULTIVITAMIN 1 TABLET 1 TAB PO (08:46)
[2022-05-15 09:00] VITALS: BP 107/65; PULSE 91; RESP 18; TEMP 36.5; O2SAT 95
[2022-05-15 13:00] VITALS: BP 98/62; PULSE 66; RESP 20; TEMP 36.8; O2SAT 96
[2022-05-15] MEDS: chlordiazePOXIDE 25 MG CAPSULE PO ×3 (13:26→23:17)
--- NOTE | 2022-05-15 15:42 | PT.IPTN ---
Current Diagnoses Alcohol dependence with withdrawal, unspecified (05/08/22) Physical Therapy Treatment Note M2 PT-IP Current Condition Start: 05/10/22 15:52 Freq: NEEDED Status: Active Protocol: Document 05/15/22 16:31 SP (Rec: 05/15/22 16:52 SP [id number]) Physical Therapy Current Condition Current Condition Evaluation Date 05/10/22 Treatment Diagnosis alcohol withdrawal; A-fib; difficulty in walking Onset Date 05/08/22 M3 PT-IP Subjective Start: 05/10/22 15:52 Freq: NEEDED Status: Active Protocol: Document 05/15/22 16:31 SP (Rec: 05/15/22 16:52 SP [id number]) Subjective Physical Therapy Visit Type Type Treatment Note Visit Start Time 15:04 Visit Stop Time 15:42 Total Visit Minutes 38 Notes Vitals: supine: BP 98/56 HR 86 SaO2 99 post mobiltiy seated in chair: 120/60 HR 90 Number of AGRICULTURAL SERVICE WORKER Visits 2 Physical Therapy Visit Comments Patient Comments Pt willing and motivated to participate with PT. Pt reported fell out of bed trying to sit up and forgot to call nursing. M4 PT-IP Mobility and Gait Start: 05/10/22 15:52 Freq: NEEDED Status: Active Protocol: Document 05/15/22 16:31 SP (Rec: 05/15/22 16:52 SP [id number]) PT-Bed Mobility Assessment Supine to Sit Supine to Sit Standby Assistance,Head of Bed Elevated Scooting Scooting to Edge of Bed Standby Assistance PT-Transfer Assessment Sit to and From Stand Sit to and from Stand Minimal Assistance,1 Person Assistance,Use of Upper Extremities Equipment Transfer Assistive Device Gait Belt,Front Wheeled Walker Orthotic/Prosthetic Devices or Brace: No Transfers Transfer Destination Chair Transfer Technique ambulated with FWW Transfer Ability Level of Assist Contact Guard Assistance, Minimal Assistance,1 Person Assistance,Use of Upper Extremities Comments Mobility Comments Pt elevated supine when arrived, complete sup>sit SBA. Seated EOB unsupported, CG/ Min A due to forward trunk lean to don brief provided, challenged to lift each LE into brief hole seated EOB required Min A to complete. Mod A sit>stand cued push from bed, Min A standing w/back of BLEs lean supported on bed using BUE to pull up briefs, pt no carryover cues ed for use 1 UE and other UE on FWW for balance support. Once completed, extra time gait around room w/ FWW, flexed posture/bent knees mod/heavy BUE on FWW. intermittent cues for upright posture chest lift, bigger receiprocal stepping improved gait pushing FWW while stepping. Good self cues sequencing BLE and FWW small stepping during pivot 2 laps in room before returned to chair, CG-10% A. Pt completed 5 x STS from chair CGA 1 UE on chair arm, other UE on FWW, cued full come to stand tall posture BLE knee extension, slow descent, good 1 Ue on chair arm. Pt was in chair legs elevated and all needs in reach and chair alarm on. Reviewed use call light for assistance due to fall risk, pt verbalized understanding and in agreement needs help getting around still. Gait Assessment Gait Gait Assistance Required: Contact Guard Assist,Minimum Assistance,1 Person Assist Distance (Feet) 60 Assistive Devices Assistive Device Gait Belt,Front Wheeled Walker Orthotic/Prosthetic Devices or Brace: No Gait Deviations General Gait Pattern Antalgic,Decreased Stride Length,Decreased Feet Clearance,Flexed Trunk,Narrow Based Gait,Step-to Gait Factors Limiting Gait Function Factors Limiting Gait Function Decreased Activity Tolerance, Decreased Strength,Difficulty Following Directions,Poor Balance,Poor Safety Awareness Comments Gait Comments improved increase step length (less shuffle stepping) and posturing with intermittent cues. Stair Climbing Assessment Comments Stair Climbing Comments no stairs to assess PT-Balance Assessment Sitting Balance and Reactions Static Sitting Balance Ability Good Dynamic Sitting Balance Ability Poor Standing Balance and Reactions Static Standing Balance Ability Good Dynamic Standing Balance Ability Fair Device Used FWW M5 PT-IP Objective Assessments Start: 05/10/22 15:52 Freq: NEEDED Status: Active Protocol: Document 05/10/22 15:00 AB (Rec: 05/10/22 16:12 AB [id number]) Orientation Orientation/Cognition Level of Alertness Alert Orientation Name Safety Awareness Decreased Safety Awareness Memory Description Short Term Impaired Comments with confusion Gross Range of Motion Lower Extremity ROM Assessment Within Functional Limits Strength Lower Extremity Strength Hip 4-/5 Knee 3+/5 Sensation Assessment Sensation Gross Sensation Right LE Impaired,Left LE Impaired Sensation Description Numbness Comments Sensation Comments chronic bilateral feet neuropathy Muscle Tone Muscle Tone WNL Yes M6 PT-IP Treatment Start: 05/10/22 15:52 Freq: NEEDED Status: Active Protocol: Document 05/15/22 16:31 SP (Rec: 05/15/22 16:52 SP [id number]) Physical Therapy Treatment Exercises Exercises Ankle Pumps,Heel Slides, Straight Leg Raises Education Education Provided Safety Other Treatments Other Treatment Performed 5 x STS from chair CG- Min A. M7 PT-IP Assessment and Plan Start: 05/10/22 15:52 Freq: NEEDED Status: Active Protocol: Document 05/15/22 16:31 SP (Rec: 05/15/22 16:52 SP [id number]) PT Summary Assessment and Plan Potential Rehabilitation Potential Fair Status of Condition at Evaluation Evolving Summary Impairments Pain,ROM,Strength,Balance, Coordination,Sensation,Tone, Cognition,Bed Mobility, Transfers,Gait,Activity Tolerance Progress Towards Goals Progressing Toward Goals,Slow Progress due to Activity Tolerance Assessment Summary Pt progressing. SBA during bed mob, sit <>stand and gait w/ FWW CG- Min A with intermittent cues for tall posturing, increase foot clearance and less UE WBon FWW to allow forward mobility. Requires cues for safety use UEs for ascend/descend STS for self support. Currently recommending SNF vs home HHPT 17/12 due to continue need for safety mobility support w/ FWW . Will continue to assess progress. Goals Bed Mobility Goal Standby Assistance Transfer Goal Minimal Assistance,Front Wheeled Walker Gait Goal Minimal Assistance,Front Wheel Walker Gait Distance 50 Other Goals improve bed mobility mod I improve transfers and ambulation using FWW 100 ft SBA Days to Meet Goals 10 Frequency of Treatment Frequency Of Treatment Once a Day Treatment Plan Physical Therapy Treatment Plan Bed Mobility Training,Transfer Training,Gait Training, Therapeutic Exercise,Balance Retraining,Discharge Planning, Hot or Cold Pack,Neuromuscular Re-ed,Coordination Retraining ,Manual Therapy Other Recommendations and Next Treatment tranfers, gait further Focus distance w/FWW chair follow outside room, balance activities seated/standing for improved stability. Precautions Other Precautions falls Recommendations To Nursing Amount of Assist Needed 1 Person Assist Discharge Recommendations PT Discharge Recommendations Home with 17/12 Assist Available,Home Health,SNF Rehab Equipment Needed for Home Before FWW if pt goes home Discharge
--- NOTE | 2022-05-15 16:58 | OT.IP.TRT ---
Current Diagnoses Alcohol dependence with withdrawal, unspecified (05/08/22) Occupational Therapy Treatment Note M2 OT-IP Current Condition Start: 05/11/22 13:45 Freq: Status: Active Protocol: Document 05/11/22 13:06 [facility] (Rec: 05/11/22 14:19 [facility] [id number]) Occupational Therapy Current Condition Current Condition Evaluation Date 05/11/22 Treatment Diagnosis ETOH withdrawal , A-fib M3 OT- IP Subjective and Pain Start: 05/11/22 13:45 Freq: Status: Active Protocol: Document 05/15/22 16:58 [facility] (Rec: 05/15/22 17:05 [facility] [id number]) OT- Subjective Occupational Therapy Visit Type Type Treatment Note Visit Start Time 16:44 Visit Stop Time 16:58 Total Visit Minutes 14 Occupational Therapy Visit Comments Patient Comments Pt agreed to practice LB dressing . Patient/Caregiver Goals To be able to be normal again. OT Pain Assessment Pain When Pain Assessed At Rest Pain Present Pain Present Denied Pain M4 OT- IP ADL's Start: 05/11/22 13:45 Freq: Status: Active Protocol: Document 05/15/22 16:58 [facility] (Rec: 05/15/22 17:05 [facility] [id number]) OT ADL-Dressing General Eval Lower Body Dressing Ability Standby Assistance Comments OT Dressing Comments Pt able to cross her legs over while seated to bindu/doff his socks with increased time. Pt able to put his pants on and mainly just needing CGA for balance and education to hold onto the walker with one hand while donning pants over his hip with the other hand and then to switch sides. M5 OT- IP IADL's Start: 05/11/22 13:45 Freq: Status: Active Protocol: Document 05/11/22 13:06 [facility] (Rec: 05/11/22 14:19 [facility] [id number]) OT-Instrumental Activities of Daily Living Deficits IADL Deficits Identified Deficits M6 OT- IP Functional Cognition Start: 05/11/22 13:45 Freq: Status: Active Protocol: Document 05/15/22 16:58 [facility] (Rec: 05/15/22 17:05 [facility] [id number]) Cognitive Factors Limiting Selfcare Function Cognitive Comments Cognitive Assessment Comments Pt able to follow commands for ADl's. Pt is cooperative. M7 OT- IP Mobility and Balance Start: 05/11/22 13:45 Freq: Status: Active Protocol: Document 05/15/22 16:58 [facility] (Rec: 05/15/22 17:05 [facility] [id number]) OT-Transfer Assessment Sit to and From Stand Sit to and from Stand Contact Guard Assistance,1 Person Assistance Comments Mobility Comments Pt able to come to stand with CGA A with FWW. Pt tends to lean backwards on his heels and needing cues to put his weight forwards. OT- Balance Assessment Sitting Balance and Reactions Static Sitting Balance Ability Normal Dynamic Sitting Balance Ability Good Standing Balance and Reactions Static Standing Balance Ability Fair Dynamic Standing Balance Ability Poor M8 OT- IP Objective Assessments Start: 05/11/22 13:45 Freq: Status: Active Protocol: Document 05/11/22 13:06 [facility] (Rec: 05/11/22 14:19 [facility] [id number]) OT Gross Range of Motion Upper Extremity Range of Motion ROM Impairments grossly WFL OT Strength Comments Strength Comments Pt 4/5 throughout OT- Coordination Assessment Comments Coordination Comments Pt very tremulous and decreased coordination. M9 OT- IP Assessment and Plan Start: 05/11/22 13:45 Freq: Status: Active Protocol: Document 05/15/22 16:58 [facility] (Rec: 05/15/22 17:05 [facility] [id number]) OT Summary Assessment and Plan Potential Rehabilitation Potential Good Analytic Complexity at Evaluation Moderate Summary OT Impairments Balance,Functional Mobility, Grooming,Dressing,Toileting, Bathing,Toilet Transfers, Shower Transfers,Activity Tolerance Progress Towards Goals Progressing Toward Goals Assessment Summary Pt improving and doing better and able to do LB dressing with mainly CGA for balance while standing with FWW. Pt would benefit from short skilled rehab or have assist if going home, however pt lives out of his truck. Goals Grooming Goal Independent Dressing Goal Independent Toileting Goal Independent Bathing Goal Independent Toilet Transfer Goal Independent Shower Transfer Goal Independent Days to Meet Goals 15 Frequency of Treatment Frequency Of Treatment Once a Day Treatment Plan OT Treatment Plan ADL Training,Functional Cognition Training,Functional Mobility,Patient/Family Education,Discharge Planning Other Treatment Recommendations and Next Shower with CGA Treatment Focus Discharge Recommendations OT Discharge Recommendations SNF Rehab Transportation Needs at Discharge Wheelchair/Cabulance
--- NOTE | 2022-05-15 17:09 | PM.PN.1 ---
Subjective Subjective Date Patient Seen: 05/15/22 Interval history: Tremor has improved somewhat, needs assistance to eat still but notices a good response to propranolol. No diarrhea, no chest pain or palpitations. Exam Vital Signs (past 8 hours): - 05/15/22 13:00 Temperature 98.2 F Pulse Rate 66 Respiratory Rate 20 Blood Pressure 98/62 Pulse Oximetry 96 Oxygen Flow Rate 0 Oxygen Delivery Method Room Air Oxygen Flow Rate 0 Narrative Exam Narrative: GEN: alert male in NAD HEENT: moist mucous membranes, PERRL NECK: trachea midline, no JVD CV: regular rate and rhythm, no murmurs PULM: clear bilaterally ABD: soft, nontender, nondistended, no organomegaly EXT: warm and well perfused with no edema NEURO: awake, alert, oriented, continued resting tremor and worsened with movement. Objective Labs Result Diagrams: 05/15/22 04:54 05/15/22 04:54 Labs: Laboratory Results - last 24 hr 05/15/22 05/15/22 05/15/22 04:54 04:54 04:54 WBC 4.1 L RBC 4.61 Hgb 15.0 Hct 44.5 MCV 96.6 MCH 32.5 MCHC 33.7 RDW 15.2 H Plt Count 185 Neut % (Auto) Not Reportable Lymph % (Auto) Not Reportable [place] % (Auto) Not Reportable Eos % (Auto) Not Reportable Baso % (Auto) Not Reportable Lymph # (Auto) Not Reportable [place] # (Auto) Not Reportable Baso # (Auto) Not Reportable Total Counted 100 Seg Neutrophils % 36.0 L Band Neutrophils % 14.0 H Lymphocytes % (Manual) 18.0 L Monocytes % (Manual) 25.0 H Eosinophils % (Manual) 6.0 H Basophils % (Manual) 1.0 Neutrophils # (Manual) 2050 L RBC Morphology Normal morphology Sodium 139 Potassium 3.8 Chloride 102 Carbon Dioxide 32 BUN 12 Creatinine 0.67 Estimated GFR > 60 BUN/Creatinine Ratio 17.9 Glucose 84 Calcium 9.3 Magnesium 2.0 PFSH Medical History (Updated 05/09/22 @ 15:44 by Belem Solano RN) Alcoholism Atrial fibrillation BPH (benign prostatic hyperplasia) Broken ribs Chronic back pain Collapsed lung Contraindication to anticoagulation therapy Depression Dizziness Former smoker Frequent falls Heart failure with reduced ejection fraction History of blood transfusion Hypertension Substance abuse Surgical History (Updated 05/09/22 @ 14:56 by Belem Solano RN) H/O adenoidectomy H/O colonoscopy with polypectomy History of inguinal hernia repair, bilateral Hx of tonsillectomy Social History household members: none Smoking Status: Former smoker alcohol intake: current Assessment & Plan Assessment & Plan narrative: 1. Alcohol dependence with withdrawal Patient last drink 3 days prior to admission.? He does continue to have significant weakness but decreased tremor. He also has an underlying essential tremor discussed below.? No need for benzodiazepines in the last 2 days.? Continues to require significant assistance from staff with his mobility.? Continue thiamine, multivitamin and folate. -librium taper, reduce to 25 mg q6 today. decrease further tomorrow. 05/12 -physical therapy has evaluated him and recommended senior care facility due to his ongoing weakness. -will attempt to increase propranolol again, hold metoprolol in attempt to improve essential tremor in hopes of improving mobility for possible discharge home. 2. AFib with RVR RVR has now been controlled with intermittent episode on telemetry primarily with movement.? Patient is on daily aspirin.? Resumed his usual home dose of metoprolol with good effect however will attempt propranolol for essential tremor. His previous reaction was GI upset so hopefully he can tolerate a lower dose. RVR may have been in setting of withdrawal. CHADS2 Vasc score less than 2. 3. Left-sided rib fracture secondary to a fall with trace traumatic hemothorax Holding chemical DVT prophylaxis.? Patient remained stable without symptoms. 4. BPH Continue Flomax. 5. Thrombocytopenia Platelet count is gradually improving and is up today.? Suspected etiology is marrow suppression from alcohol. 6. Hypokalemia Corrected.? Continue to monitor.? Magnesium level has been normal. 7. Peripheral neuropathy Increase gabapentin up to 600 mg t.i.d. as requested. 8. Essential tremor - management as noted above in problem 1. - continue to increase propranolol for symptom control as tolerated (previously developed diarrhea with high doses), currently 10 mg BID Code status Full Prophylaxis Chemical prophylaxis deferred secondary to traumatic hemothorax Disposition Possible SNF, however placement has been difficult. Will continue to work on mobility as he has complex home social environement as well. Time Spent With Patient Critical Care time: I spent a total of [] minutes of critical care time on this patient's care today; this time is exclusive of procedural time. Quality VTE Deep Vein Thrombosis/Pulmonary Embolism Present on Admission: No
[2022-05-15 18:41] VITALS: BP 90/55; PULSE 103; RESP 20; TEMP 36.4; O2SAT 96
[2022-05-15 20:25] VITALS: BP 98/69; PULSE 18; RESP 18; TEMP 35.9; O2SAT 97
[2022-05-15] MEDS: PROPRANOLOL 10 MG TABLET 20 MG PO (21:07)
[2022-05-15] MEDS: TAMSULOSIN 0.4 MG CAPSULE 0.8 MG PO (21:07)
[2022-05-15] MEDS: HYDROCODONE/ACET 5/325 TABLET 2 TAB PO (22:23)
[2022-05-16 01:00] VITALS: BP 110/72; PULSE 80; RESP 18; TEMP 36.2; O2SAT 97
[2022-05-16] MEDS: chlordiazePOXIDE 25 MG CAPSULE PO ×2 (05:09→18:38)
[2022-05-16] MEDS: HYDROCODONE/ACET 5/325 TABLET 2 TAB PO (05:10)
[2022-05-16 05:24] LABS: Add Manual Diff / Slide Review NO; Basophils Absolute Auto 100 /uL (0-100); Basophils Percent Auto 1.5 % (0-2); Eosinophils Absolute Auto 100 /uL (0-450); Eosinophils Percent Auto 3.6 % (2-4); Hematocrit 44.1 % (41-53); Lymphocytes Absolute Auto 1100 /uL (1100-4500); Lymphocytes Percent Auto 26.5 % (25-40); Mean Corpuscular Hemoglobin 32.8 PG (26-34); Mean Corpuscular Volume 96.6 fL (80-100); Monocytes Absolute Auto 1200 /uL (0-900); Monocytes Percent Auto 29.3 % (3-14); Neutrophils Absolute Auto 1600 /uL (1500-7000); Neutrophils Percent Auto 39.1 % (50-75); Platelet Count 198 X10^3/uL (150-400); Red Blood Cell Count 4.56 X10^6/uL (4.5-5.9); Red Cell Distribution Width 15.2 % (11.6-14.8)
[2022-05-16 05:27] LABS: Magnesium 1.9 mg/dL (1.6-2.3)
[2022-05-16 05:29] LABS: BUN Creatinine Ratio 23.6 (6-22); Blood Urea Nitrogen 17 mg/dL (9-20); Calcium 9.2 mg/dL (8.4-10.2); Carbon Dioxide 28 mmol/L (22-32); Chloride 104 mmol/L (98-107); Estimated Glomerular Filt Rate > 60 mL/min (>60); Glucose 94 mg/dL (80-110); HEMOLYSIS < 15 (0-50); Potassium 3.6 mmol/L (3.4-5.1); Sodium 136 mmol/L (137-145)
[2022-05-16 05:31] VITALS: BP 100/68; PULSE 76; RESP 16; TEMP 36.4; O2SAT 96
--- NOTE | 2022-05-16 08:09 | PT.IPTN ---
Current Diagnoses Alcohol dependence with withdrawal, unspecified (05/08/22) Physical Therapy Treatment Note M2 PT-IP Current Condition Start: 05/10/22 15:52 Freq: NEEDED Status: Active Protocol: Document 05/16/22 07:49 SP (Rec: 05/16/22 08:56 SP [id number]) Physical Therapy Current Condition Current Condition Evaluation Date 05/10/22 Treatment Diagnosis alcohol withdrawal; A-fib; difficulty in walking Onset Date 05/08/22 M3 PT-IP Subjective Start: 05/10/22 15:52 Freq: NEEDED Status: Active Protocol: Document 05/16/22 07:49 SP (Rec: 05/16/22 08:56 SP [id number]) Subjective Physical Therapy Visit Type Type Treatment Note Visit Start Time 07:49 Visit Stop Time 08:09 Total Visit Minutes 20 Number of GRADER TENDER Visits 3 Physical Therapy Visit Comments Patient Comments Pt willing and motivated to participate with PT. M4 PT-IP Mobility and Gait Start: 05/10/22 15:52 Freq: NEEDED Status: Active Protocol: Document 05/16/22 07:49 SP (Rec: 05/16/22 08:56 SP [id number]) PT-Bed Mobility Assessment Supine to Sit Supine to Sit Independent Scooting Scooting to Edge of Bed Independent PT-Transfer Assessment Sit to and From Stand Sit to and from Stand Standby Assistance,Contact Guard Assistance,Use of Upper Extremities Equipment Transfer Assistive Device Gait Belt,Front Wheeled Walker Orthotic/Prosthetic Devices or Brace: No Transfers Transfer Destination Chair Transfer Technique ambulated with FWW Transfer Ability Level of Assist Standby Assistance,Minimal Assistance,1 Person Assistance ,Use of Upper Extremities Comments Mobility Comments Complete supine>sit HOB flat, scooted to EOB I. Sit>stand SBA use of FWW but heavily uses posterior legs retro push on bed for stability to come to standing. Ed for scoot forward, feet back under him and 1-2 UE to push from bed to stand. SBA/CGA/Min once in standing due to heavy retro lean with cues forward into front foot/tall posturing/ pelvis underneath him. Gait around room w/FWW, slow pacing , LOB x2 Wilbert for recovery ( pivot turn and back stepping to chair) using FWW, 30 ft total. Cues for reaching back chair arms slow descent SBA. Pt had chair alarm donned due to fall risk, all need in reach, legs elevated in chair. Recommending / vs SNF due to I back to PLOF. Gait Assessment Gait Gait Assistance Required: Standby Assistance,Minimum Assistance,1 Person Assist Distance (Feet) 30 Assistive Devices Assistive Device Gait Belt,Front Wheeled Walker Orthotic/Prosthetic Devices or Brace: No Gait Deviations General Gait Pattern Antalgic,Decreased Stride Length,Decreased Feet Clearance,Flexed Trunk,Narrow Based Gait,Step-to Gait Factors Limiting Gait Function Factors Limiting Gait Function Decreased Activity Tolerance, Decreased Strength,Difficulty Following Directions,Poor Balance,Poor Safety Awareness Comments Gait Comments Cues for upright posturing chest lift, wt shift into full foot, not heels, increase step length/ no shuffle gait, demonstrates posterior lean coming to standing, pivot turn and back stepping Min A recover LOB x2. Stair Climbing Assessment Comments Stair Climbing Comments no stairs to assess PT-Balance Assessment Sitting Balance and Reactions Static Sitting Balance Ability Normal Dynamic Sitting Balance Ability Fair Standing Balance and Reactions Static Standing Balance Ability Fair Dynamic Standing Balance Ability Fair Device Used FWW M5 PT-IP Objective Assessments Start: 05/10/22 15:52 Freq: NEEDED Status: Active Protocol: Document 05/10/22 15:00 AB (Rec: 05/10/22 16:12 AB [id number]) Orientation Orientation/Cognition Level of Alertness Alert Orientation Name Safety Awareness Decreased Safety Awareness Memory Description Short Term Impaired Comments with confusion Gross Range of Motion Lower Extremity ROM Assessment Within Functional Limits Strength Lower Extremity Strength Hip 4-/5 Knee 3+/5 Sensation Assessment Sensation Gross Sensation Right LE Impaired,Left LE Impaired Sensation Description Numbness Comments Sensation Comments chronic bilateral feet neuropathy Muscle Tone Muscle Tone WNL Yes M6 PT-IP Treatment Start: 05/10/22 15:52 Freq: NEEDED Status: Active Protocol: Document 05/16/22 07:49 SP (Rec: 05/16/22 08:56 SP [id number]) Physical Therapy Treatment Education Education Provided Safety M7 PT-IP Assessment and Plan Start: 05/10/22 15:52 Freq: NEEDED Status: Active Protocol: Document 05/16/22 07:49 SP (Rec: 05/16/22 08:56 SP [id number]) PT Summary Assessment and Plan Potential Rehabilitation Potential Fair Status of Condition at Evaluation Evolving Summary Impairments Pain,ROM,Strength,Balance, Coordination,Sensation,Tone, Cognition,Bed Mobility, Transfers,Gait,Activity Tolerance Progress Towards Goals Progressing Toward Goals,Slow Progress due to Activity Tolerance,Slow Progress - Other Assessment Summary Pt is I with bed mob, SBA initially sit>stand but heavy post legs lean/pushing into bed, cues proper hand placement. SBA gait w/FWW, MIn A for LOB retro during pivot turn and back stepping to chair. Pt is not back to his baseline I requires SBA/Min A as needed for safe mobility, recommending / vs SNF due to LOB and intermittent safety cues during mobility. He required FWW for mobiltiy and will need dispensed when safe to [place] if back to trunk/motel. Will continue to assess progress. Goals Bed Mobility Goal Standby Assistance Transfer Goal Minimal Assistance,Front Wheeled Walker Gait Goal Minimal Assistance,Front Wheel Walker Gait Distance 50 Other Goals improve bed mobility mod I improve transfers and ambulation using FWW 100 ft SBA Days to Meet Goals 10 Frequency of Treatment Frequency Of Treatment Once a Day Treatment Plan Physical Therapy Treatment Plan Bed Mobility Training,Transfer Training,Gait Training, Therapeutic Exercise,Balance Retraining,Discharge Planning, Hot or Cold Pack,Neuromuscular Re-ed,Coordination Retraining ,Manual Therapy Other Recommendations and Next Treatment tranfers, gait further Focus distance w/FWW chair follow outside room, balance activities seated/standing for improved stability. Precautions Other Precautions falls Recommendations To Nursing Amount of Assist Needed 1 Person Assist Discharge Recommendations PT Discharge Recommendations Home with / Assist Available,Home Health,SNF Rehab Equipment Needed for Home Before FWW if pt goes home Discharge
[2022-05-16 10:00] VITALS: BP 98/69; PULSE 88; RESP 20; TEMP 36.7; O2SAT 97
[2022-05-16] MEDS: PROPRANOLOL 10 MG TABLET 20 MG PO ×2 (10:05→20:43)
[2022-05-16] MEDS: THIAMINE 100 MG TABLET PO (10:05)
[2022-05-16] MEDS: ASPIRIN EC 81 MG TABLET PO (10:05)
[2022-05-16] MEDS: LIDOCAINE PATCH 1 EACH ADH..PATCH TOP (10:06)
[2022-05-16] MEDS: GABAPENTIN 600 MG TABLET PO ×2 (10:06→20:43)
[2022-05-16] MEDS: MULTIVITAMIN 1 TABLET 1 TAB PO (10:06)
[2022-05-16] MEDS: FOLIC ACID 1 MG TABLET PO (10:06)
[2022-05-16] MEDS: dilTIAZem SR 60 MG PO (10:06)
--- NOTE | 2022-05-16 12:35 | CM.DPC ---
Addendum entered by Kiya Hrenandez R.N. 05/16/22 13:03: Met with patient, he was sitting up finishing his lunch. Let him know that he may be discharged tomorrow, and this [employer] Marketing Coordinator is looking into shelters, or motels, here in town. Patient indicated, I don't know if I will be ready tomorrow. Let him know that this will be up to the hospitalist. Let him know that [facility] [employer] can get him a walker as well. He indicated that his car is here in town, but due to outside temperatures, may be better over in a fci temporarily. Daughter would need to pick patient up. Have not yet heard back from [facility]. Original Note: DCP Cont: P.T. noted some improvement in mobility. Patient is able to use a walker, does tend to lean back at times. He will need a FWW ordered upon discharge. Hospitalist stated that he may be ready for discharge tomorrow, . A FWW can be ordered then. Went ahead and called [facility], as patient lives in his truck, and due to the temperatures outside, may be able to get him some fci. Called Chary in housing, her number is: [phone], ext [phone]. Left her a message. Called another number at: [phone], and left a message, this is the motel voucher line, and message indicated that there are some shelters, such as [facility] in , and [facility] in [place]. In the message, this [place] Acquisition Marketing Coordinator did not give out patient's name, but let them know that patient most likely will need a voucher for tomorrow. Daughter will pick patient up and take him to fci. P: DCP to continue to follow. Have a call out to [facility], for fci for tomorrow. Kiya Hernandez RN/Banking And Finance Instructor
[2022-05-16 14:00] VITALS: BP 98/65; PULSE 81; RESP 18; TEMP 36.5; O2SAT 97
--- NOTE | 2022-05-16 14:15 | OT.IP.TRT ---
Current Diagnoses Alcohol dependence with withdrawal, unspecified (05/08/22) Occupational Therapy Treatment Note M2 OT-IP Current Condition Start: 05/11/22 13:45 Freq: Status: Active Protocol: Document 05/11/22 13:06 [facility] (Rec: 05/11/22 14:19 [facility] [id number]) Occupational Therapy Current Condition Current Condition Evaluation Date 05/11/22 Treatment Diagnosis ETOH withdrawal , A-fib M3 OT- IP Subjective and Pain Start: 05/11/22 13:45 Freq: Status: Active Protocol: Document 05/16/22 14:15 [facility] (Rec: 05/16/22 15:27 [facility] [id number]) OT- Subjective Occupational Therapy Visit Type Type Treatment Note Visit Start Time 14:15 Visit Stop Time 14:48 Total Visit Minutes 33 Occupational Therapy Visit Comments Patient Comments Pt agreed to get up. Patient/Caregiver Goals To be able to be normal again and care for himself. OT Pain Assessment Pain When Pain Assessed At Rest Pain Present Pain Present Denied Pain M4 OT- IP ADL's Start: 05/11/22 13:45 Freq: Status: Active Protocol: Document 05/16/22 14:15 [facility] (Rec: 05/16/22 15:27 [facility] [id number]) OT [id number] Comments OT Self-Feeding Comments Not at meal time. OT ADL-Grooming Comments OT Grooming Comments Not performed. OT ADL-Oral Care Comments Oral Care Comments Not performed. OT ADL-Toileting General Evaluation Toileting Ability Standby Assistance Comments OT Toileting Comments Pt able to stand with the FWW and able to use the urinal while standing. OT ADL-Bathing Comments OT Bathing Comments Pt able to shower with nursing aid while seated and per nursing aid pt just mainly needing assist with his back. M5 OT- IP IADL's Start: 05/11/22 13:45 Freq: Status: Active Protocol: Document 05/11/22 13:06 [facility] (Rec: 05/11/22 14:19 [facility] [id number]) OT-Instrumental Activities of Daily Living Deficits IADL Deficits Identified Deficits M6 OT- IP Functional Cognition Start: 05/11/22 13:45 Freq: Status: Active Protocol: Document 05/16/22 14:15 [facility] (Rec: 05/16/22 15:27 [facility] [id number]) Cognitive Factors Limiting Selfcare Function Cognitive Comments Cognitive Assessment Comments Pt still needing safety cues for FWW safety and balance. Pt tends to crowd the FWW too close in which at times causes him to lose his balance backwards. M7 OT- IP Mobility and Balance Start: 05/11/22 13:45 Freq: Status: Active Protocol: Document 05/16/22 14:15 [facility] (Rec: 05/16/22 15:27 [facility] [id number]) OT- Bed Mobility Assessment Supine to Sit Supine to Sit Assist Standby Assistance Sit to Supine Sit to Supine Assist Standby Assistance OT-Transfer Assessment Sit to and From Stand Sit to and from Stand Contact Guard Assistance Transfers Transfer Ability Standby Assistance,Contact Guard Assistance Comments Mobility Comments Pt able to stand from close SBA to CGA as pt tends to lose his balance backwards at times. BP supine 106/66, sitting 107/60, standing 110/ 56 and after in bed 105/57. pt able to walk around the bed and back with close SBA with FWW. Pt needing to straighten up as he tends to look down at his feet when walking. OT- Balance Assessment Sitting Balance and Reactions Static Sitting Balance Ability Normal Dynamic Sitting Balance Ability Good Standing Balance and Reactions Static Standing Balance Ability Fair Dynamic Standing Balance Ability Poor M8 OT- IP Objective Assessments Start: 05/11/22 13:45 Freq: Status: Active Protocol: Document 05/11/22 13:06 [facility] (Rec: 05/11/22 14:19 [facility] [id number]) OT Gross Range of Motion Upper Extremity Range of Motion ROM Impairments grossly WFL OT Strength Comments Strength Comments Pt 4/5 throughout OT- Coordination Assessment Comments Coordination Comments Pt very tremulous and decreased coordination. M9 OT- IP Assessment and Plan Start: 05/11/22 13:45 Freq: Status: Active Protocol: Document 05/16/22 14:15 [facility] (Rec: 05/16/22 15:27 [facility] [id number]) OT Summary Assessment and Plan Potential Rehabilitation Potential Good Analytic Complexity at Evaluation Moderate Summary OT Impairments Balance,Functional Mobility, Grooming,Dressing,Toileting, Bathing,Toilet Transfers, Shower Transfers,Activity Tolerance Progress Towards Goals Progressing Toward Goals Assessment Summary Pt still having lose of balance at times backwards. Pt will benefit from short skilled rehab pending on where pt will be going after discharge, as prior pt lived out of his truck. Goals Grooming Goal Independent Dressing Goal Independent Toileting Goal Independent Bathing Goal Independent Toilet Transfer Goal Independent Shower Transfer Goal Independent Days to Meet Goals 14 Frequency of Treatment Frequency Of Treatment Once a Day Treatment Plan OT Treatment Plan ADL Training,Functional Cognition Training,Functional Mobility,Patient/Family Education,Discharge Planning Other Treatment Recommendations and Next LB dressing with increased Treatment Focus time and good safety Discharge Recommendations OT Discharge Recommendations SNF Rehab Transportation Needs at Discharge Wheelchair/Cabulance
--- NOTE | 2022-05-16 14:49 | P.PN_ITS ---
Subjective Subjective Date Patient Seen: 05/16/22 Interval history: Tremor has improved somewhat, needs assistance to eat still but notices a good response to propranolol. No diarrhea, no chest pain or palpitations. He is a bit more frustrated and agitated more than usual this morning. With diltiazem, BP has dropped a fair amount this morning, will need to hold. Exam Vital Signs (past 8 hours): - 05/16/22 10:00 05/16/22 09:35 Temperature 98.1 F Pulse Rate 88 Respiratory Rate 20 Blood Pressure 98/69 Pulse Oximetry 97 Oxygen Delivery Method Room Air Oxygen Flow Rate 0 Oxygen Delivery Method Room Air Oxygen Flow Rate 0 Narrative Exam Narrative: GEN: alert male, mildly agitated, calm when questions were answered. HEENT: moist mucous membranes, PERRL NECK: trachea midline, no JVD CV: regular rate and rhythm, no murmurs PULM: clear bilaterally ABD: soft, nontender, nondistended, no organomegaly EXT: warm and well perfused with no edema NEURO: awake, alert, oriented, continued resting tremor and worsened with movement, slightly worse than day before. Objective Labs Result Diagrams: 05/16/22 04:45 05/16/22 04:45 Labs: Laboratory Results - last 24 hr 05/16/22 05/16/22 05/16/22 04:45 04:45 04:45 WBC 4.0 L RBC 4.56 Hgb 15.0 Hct 44.1 MCV 96.6 MCH 32.8 MCHC 34.0 RDW 15.2 H Plt Count 198 Neut % (Auto) 39.1 L Lymph % (Auto) 26.5 [place] % (Auto) 29.3 H Eos % (Auto) 3.6 Baso % (Auto) 1.5 Neut # (Auto) 1600 Lymph # (Auto) 1100 [place] # (Auto) 1200 H Eos # (Auto) 100 Baso # (Auto) 100 Sodium 136 L Potassium 3.6 Chloride 104 Carbon Dioxide 28 BUN 17 Creatinine 0.72 Estimated GFR > 60 BUN/Creatinine Ratio 23.6 H Glucose 94 Calcium 9.2 Magnesium 1.9 PFSH Medical History (Updated 05/09/22 @ 15:44 by Belem Solano RN) Alcoholism Atrial fibrillation BPH (benign prostatic hyperplasia) Broken ribs Chronic back pain Collapsed lung Contraindication to anticoagulation therapy Depression Dizziness Former smoker Frequent falls Heart failure with reduced ejection fraction History of blood transfusion Hypertension Substance abuse Surgical History (Updated 05/09/22 @ 14:56 by Belem Solano RN) H/O adenoidectomy H/O colonoscopy with polypectomy History of inguinal hernia repair, bilateral Hx of tonsillectomy Social History household members: none Smoking Status: Former smoker alcohol intake: current Assessment & Plan Assessment & Plan narrative: 1. Alcohol dependence with withdrawal Patient last drink 3 days prior to admission.? He does continue to have signif icant weakness but decreased tremor. He also has an underlying essential tremor discussed below.? No need for benzodiazepines in the last 2 days.? Continues to require significant assistance from staff with his mobility.? Continue thiamine, multivitamin and folate. -librium taper, reduced to 25 mg BID today then stop tomorrow. 05/12 -physical therapy has evaluated him and recommended retirement facility due to his ongoing weakness. -will attempt to increase propranolol again, hold metoprolol in attempt to improve essential tremor in hopes of improving mobility for possible discharge home. 2. AFib with RVR RVR has now been controlled with intermittent episode on telemetry primarily with movement.? Patient is on daily aspirin.? Resumed his usual home dose of metoprolol with good effect however will attempt propranolol for essential tremor. His previous reaction was GI upset so hopefully he can tolerate a lower dose. RVR may have been in setting of withdrawal. CHADS2 Vasc score less than 2. - trialed diltiazem but more hypotensive today, will hold. 3. Left-sided rib fracture secondary to a fall with trace traumatic hemothorax Holding chemical DVT prophylaxis.? Patient remained stable without symptoms. 4. BPH Continue Flomax. 5. Thrombocytopenia Platelet count is gradually improving and is up today.? Suspected etiology is marrow suppression from alcohol. 6. Hypokalemia Corrected.? Continue to monitor.? Magnesium level has been normal. 7. Peripheral neuropathy Increase gabapentin up to 600 mg t.i.d. as requested. 8. Essential tremor - management as noted above in problem 1. - continue to increase propranolol for symptom control as tolerated (previously developed diarrhea with high doses), currently 20 mg BID Code status Full Prophylaxis Chemical prophylaxis deferred secondary to traumatic hemothorax Disposition Possible SNF, however placement has been difficult. Will continue to work on mobility as he has complex home social environment as well. Most likely will be discharge to home environment, possibly with hotel voucher. Time Spent With Patient Critical Care time: I spent a total of [] minutes of critical care time on this patient's care today; this time is exclusive of procedural time. Quality VTE Deep Vein Thrombosis/Pulmonary Embolism Present on Admission: No
[2022-05-16 18:00] VITALS: BP 92/58; PULSE 83; RESP 18; TEMP 36.4; O2SAT 97
[2022-05-16] MEDS: MELATONIN 3 MG TABLET 6 MG PO (20:44)
[2022-05-16] MEDS: TAMSULOSIN 0.4 MG CAPSULE 0.8 MG PO (20:44)
[2022-05-16 21:56] VITALS: BP 115/72; PULSE 97; RESP 18; TEMP 36.7; O2SAT 97
[2022-05-17 05:00] VITALS: BP 106/65; PULSE 89; RESP 18; TEMP 36.6; O2SAT 96
[2022-05-17] MEDS: chlordiazePOXIDE 25 MG CAPSULE PO (06:07)
[2022-05-17 07:50] VITALS: BP 100/62; PULSE 72; RESP 18; TEMP 36.4; O2SAT 98
[2022-05-17] MEDS: FOLIC ACID 1 MG TABLET PO (08:17)
[2022-05-17] MEDS: MULTIVITAMIN 1 TABLET 1 TAB PO (08:17)
[2022-05-17] MEDS: PROPRANOLOL 10 MG TABLET 20 MG PO ×2 (08:17→20:35)
[2022-05-17] MEDS: THIAMINE 100 MG TABLET PO (08:17)
[2022-05-17] MEDS: ASPIRIN EC 81 MG TABLET PO (08:17)
[2022-05-17] MEDS: LIDOCAINE PATCH 1 EACH ADH..PATCH TOP (08:18)
[2022-05-17] MEDS: GABAPENTIN 600 MG TABLET PO ×3 (08:18→20:35)
--- NOTE | 2022-05-17 11:43 | PT.IPTN ---
Current Diagnoses Alcohol dependence with withdrawal, unspecified (05/08/22) Physical Therapy Treatment Note M2 PT-IP Current Condition Start: 05/10/22 15:52 Freq: NEEDED Status: Active Protocol: Document 05/17/22 11:20 SP (Rec: 05/17/22 14:03 SP [id number]) Physical Therapy Current Condition Current Condition Evaluation Date 05/10/22 Treatment Diagnosis alcohol withdrawal; A-fib; difficulty in walking Onset Date 05/08/22 M3 PT-IP Subjective Start: 05/10/22 15:52 Freq: NEEDED Status: Active Protocol: Document 05/17/22 11:20 SP (Rec: 05/17/22 14:03 SP [id number]) Subjective Physical Therapy Visit Type Type Treatment Note Visit Start Time 11:20 Visit Stop Time 11:43 Total Visit Minutes 23 Number of LOGISTICS ACCOUNT MANAGER Visits 4 Physical Therapy Visit Comments Patient Comments Pt willing and motivated to participate with PT. M4 PT-IP Mobility and Gait Start: 05/10/22 15:52 Freq: NEEDED Status: Active Protocol: Document 05/17/22 11:20 SP (Rec: 05/17/22 14:03 SP [id number]) PT-Transfer Assessment Sit to and From Stand Sit to and from Stand Standby Assistance,Use of Upper Extremities Equipment Transfer Assistive Device Gait Belt,Front Wheeled Walker Orthotic/Prosthetic Devices or Brace: No Transfers Transfer Destination Chair Transfer Technique ambulated with FWW Transfer Ability Level of Assist Standby Assistance,Contact Guard Assistance,Use of Upper Extremities Comments Mobility Comments Pt was up walking in room using FWW with RELIEF COOK providing CGA via gait belt. LOGISTICS ACCOUNT MANAGER took over care, pt proceeded complete gait to chair approx 10 ft SBA, pt reports need change his brief. Pt verbalized for self safety strategies pivot turn w/ Fww self /back up fully feel chair behind knees and centering between chair arm rests. Pt completed doff brief in standing cues 1 UE at time for safe stabilize, reaching back 1 UE on FWW SBA. Pt able compete doff then don himself in sitting in chair, noted trunk lean but no LOB. Sit> stand SBA good hand placement, cued 1 UE support on FWW and other manage brief for safety balance, verbalized good strategy and demonstration carryover, stable no sway/LOB. Pt completed increase distance gait into hallway Min cues for chest lift tall posture, increase stride/ modified receiprocal stepping (decrease shuffle stepping) and COG over full foot not lean posterior could lose balance improved increased safe pace and stability gait w/FWW chair> hallway window, pivot and back approx 120 ft total close SBA. Pt returned to room chair SBA. Pt had call light and all needs in reach before left, elevated BLEs and provided requested iced water , donned chair alarm for safety still fall risk with amount cuing during mobility continues to need during tx. Gait Assessment Gait Gait Assistance Required: Standby Assistance,Contact Guard Assist Distance (Feet) 120 Assistive Devices Assistive Device Gait Belt,Front Wheeled Walker Orthotic/Prosthetic Devices or Brace: No Gait Deviations General Gait Pattern Antalgic,Decreased Stride Length,Decreased Feet Clearance,Flexed Trunk,Narrow Based Gait,Step-to Gait Factors Limiting Gait Function Factors Limiting Gait Function Decreased Activity Tolerance, Decreased Strength,Poor Balance,Poor Safety Awareness Comments Gait Comments See mobiliy comments Stair Climbing Assessment Comments Stair Climbing Comments no stairs to assess PT-Balance Assessment Sitting Balance and Reactions Static Sitting Balance Ability Normal Dynamic Sitting Balance Ability Fair Standing Balance and Reactions Static Standing Balance Ability Fair Dynamic Standing Balance Ability Fair Device Used FWW M5 PT-IP Objective Assessments Start: 05/10/22 15:52 Freq: NEEDED Status: Active Protocol: Document 05/10/22 15:00 AB (Rec: 05/10/22 16:12 AB [id number]) Orientation Orientation/Cognition Level of Alertness Alert Orientation Name Safety Awareness Decreased Safety Awareness Memory Description Short Term Impaired Comments with confusion Gross Range of Motion Lower Extremity ROM Assessment Within Functional Limits Strength Lower Extremity Strength Hip 4-/5 Knee 3+/5 Sensation Assessment Sensation Gross Sensation Right LE Impaired,Left LE Impaired Sensation Description Numbness Comments Sensation Comments chronic bilateral feet neuropathy Muscle Tone Muscle Tone WNL Yes M6 PT-IP Treatment Start: 05/10/22 15:52 Freq: NEEDED Status: Active Protocol: Document 05/17/22 11:20 SP (Rec: 05/17/22 14:03 SP [id number]) Physical Therapy Treatment Education Education Provided Safety M7 PT-IP Assessment and Plan Start: 05/10/22 15:52 Freq: NEEDED Status: Active Protocol: Document 05/17/22 11:20 SP (Rec: 05/17/22 14:03 SP [id number]) PT Summary Assessment and Plan Potential Rehabilitation Potential Fair Status of Condition at Evaluation Evolving Summary Impairments Pain,ROM,Strength,Balance, Coordination,Sensation,Tone, Cognition,Bed Mobility, Transfers,Gait,Activity Tolerance Progress Towards Goals Progressing Toward Goals,Slow Progress due to Activity Tolerance,Slow Progress - Other Assessment Summary Pt improved less physical support today but continues to require safety education and cuing for safe mobilizing close SBA/ CGA if needed w/FWW further into hallway 120 ft total, improved posturing/ stride/clearance with cuing required, no LOB this tx. Goals Bed Mobility Goal Standby Assistance Transfer Goal Minimal Assistance,Front Wheeled Walker Gait Goal Minimal Assistance,Front Wheel Walker Gait Distance 50 Other Goals improve bed mobility mod I improve transfers and ambulation using FWW 100 ft SBA Days to Meet Goals 10 Frequency of Treatment Frequency Of Treatment Once a Day Treatment Plan Physical Therapy Treatment Plan Bed Mobility Training,Transfer Training,Gait Training, Therapeutic Exercise,Balance Retraining,Discharge Planning, Hot or Cold Pack,Neuromuscular Re-ed,Coordination Retraining ,Manual Therapy Other Recommendations and Next Treatment transfers, gait further Focus distance w/FWW, curb mgt w/ FWW for safe community mobility gait hx homeless, balance activities seated/ standing for improved stability. Precautions Other Precautions falls Recommendations To Nursing Amount of Assist Needed 1 Person Assist Discharge Recommendations PT Discharge Recommendations Home with 17/12 Assist Available,Home Health,SNF Rehab Equipment Needed for Home Before FWW if pt goes home Discharge
--- NOTE | 2022-05-17 12:49 | CM.DPC ---
Addendum entered by Ximena Jenkins R.N. 05/17/22 15:58: Eagle spoke with Yady at [facility] who stated she will review patient for a medicaid equipment operator intermodal yard bed that she has available she plans on coming in to assess him tomorrow just to put eyes on and see if its a patient they could potentially accept for equipment operator intermodal yard bed placement. starting with medicare bed then turning into retirement bed placement under his medicaid. CM faxed clinicals for her review. Eagle team will follow up with her tomorrow. Ximena Jenkins RNtechnology project manager Addendum entered by Ximena Jenkins R.N. 05/17/22 14:27: EAGLE spoke to BEATRIS at the hotel voucher line who stated patient doesn't want to DC from the hospital and he isn't able to walk with out two people helping him. EAGLE explained that PT recommended 1 person assist and FWW. which we will issues at his NH. He stated he was interested in a motel through [facility] who will call him back today to check on him then [facility] for there program to help him get on his feet after that. CM placed [facility] and Cm will give patient information and a phone number to call them about getting a bed. Ximena Jenkins RNflight control manager Original Note: DCP Continued: EAGLE called Beatris at the [facility] [phone] and M working on getting the patient a hotel room voucher, Cm also called [facility] assisted [phone] to see if they have a bed the patient can have at NH to keep him warm and out of his truck. CM called patients daughter and let her know that the patient will most likely DC tomorrow per MD and would need a ride which she has agreed to provide in the past. EAGLE contacted the [facility] assisted provided by [facility] [employer] called them [facility] [phone], Beatris at [facility] called [facility] [phone] ext [phone], looking for a bed for the patient at NH tomorrow to keep him out of the cold since the plan is to DC the patient back to his truck when medically stable. Patient updated on CM team working on locating a assisted bed, motel voucher or a bed at the [facility] weather assisted for the patient at NH. CM team will continue to work on locating a assisted bed for the patient. Ximena Jenkins RNrailroad auditor
[2022-05-17 13:04] VITALS: BP 99/62; PULSE 82; RESP 18; TEMP 36.9; O2SAT 98
[2022-05-17] MEDS: SENNOSIDES 8.6 MG TABLET PO ×2 (14:33→20:35)
--- NOTE | 2022-05-17 15:29 | OT.IP.TRT ---
Current Diagnoses Alcohol dependence with withdrawal, unspecified (05/08/22) Occupational Therapy Treatment Note M2 OT-IP Current Condition Start: 05/11/22 13:45 Freq: Status: Active Protocol: Document 05/11/22 13:06 [facility] (Rec: 05/11/22 14:19 [facility] [id number]) Occupational Therapy Current Condition Current Condition Evaluation Date 05/11/22 Treatment Diagnosis ETOH withdrawal , A-fib M3 OT- IP Subjective and Pain Start: 05/11/22 13:45 Freq: Status: Active Protocol: Document 05/17/22 15:08 [facility] (Rec: 05/17/22 15:41 [facility] [id number]) OT- Subjective Occupational Therapy Visit Type Type Treatment Note Visit Start Time 13:08 Visit Stop Time 15:29 Total Visit Minutes 21 Occupational Therapy Visit Comments Patient Comments Pt's niece,friend came to see the pt at the end of the session. Patient/Caregiver Goals To be able to be normal again and care for himself. OT Pain Assessment Pain When Pain Assessed At Rest Pain Present Pain Present Denied Pain M5 OT- IP IADL's Start: 05/11/22 13:45 Freq: Status: Active Protocol: Document 05/11/22 13:06 [facility] (Rec: 05/11/22 14:19 [facility] [id number]) OT-Instrumental Activities of Daily Living Deficits IADL Deficits Identified Deficits M6 OT- IP Functional Cognition Start: 05/11/22 13:45 Freq: Status: Active Protocol: Document 05/17/22 15:08 [facility] (Rec: 05/17/22 15:41 [facility] [id number]) Cognitive Factors Limiting Selfcare Function Cognitive Comments Cognitive Assessment Comments Pt scored 334 seconds for Trial Making Part B which implies severe impairments for visual attention, executive functioning, speed of processing, mental flexibility , and task switching. Able to ask pt's niece, friend if she come to see the pt prior. Baldemar states that she visits him at [facility] in which he has been living there since February. Able to notify case management and hospitalist. OT- Balance Assessment Sitting Balance and Reactions Static Sitting Balance Ability Normal Dynamic Sitting Balance Ability Good Standing Balance and Reactions Static Standing Balance Ability Fair Dynamic Standing Balance Ability Poor M9 OT- IP Assessment and Plan Start: 05/11/22 13:45 Freq: Status: Active Protocol: Document 05/17/22 15:08 [facility] (Rec: 05/17/22 15:41 [facility] [id number]) OT Summary Assessment and Plan Potential Rehabilitation Potential Good Analytic Complexity at Evaluation Moderate Summary OT Impairments Balance,Functional Mobility, Grooming,Dressing,Toileting, Bathing,Toilet Transfers, Shower Transfers,Activity Tolerance Progress Towards Goals Progressing Toward Goals Assessment Summary Able to find out from pt's niece,friend that he is currently living in [facility] and has his car there. Goals Grooming Goal Independent Dressing Goal Independent Toileting Goal Independent Bathing Goal Independent Toilet Transfer Goal Independent Shower Transfer Goal Independent Days to Meet Goals 13 Frequency of Treatment Frequency Of Treatment Once a Day Treatment Plan OT Treatment Plan ADL Training,Functional Cognition Training,Functional Mobility,Patient/Family Education,Discharge Planning Discharge Recommendations OT Discharge Recommendations Home with Assistance,Home Health,SNF Rehab,Home vs SNF Transportation Needs at Discharge Private Vehicle
[2022-05-17 16:30] VITALS: BP 97/60; PULSE 90; RESP 18; TEMP 36.9; O2SAT 98
--- NOTE | 2022-05-17 17:01 | PM.PN.1 ---
Subjective Subjective Date Patient Seen: 05/17/22 Interval history: Tremor has improved somewhat, needs assistance to eat still but notices a good response to propranolol. No diarrhea, no chest pain or palpitations. BP still soft after holding diltiazem, rate remains okay. Possible buttermaker helper care placement pending per case management today. Exam Vital Signs (past 8 hours): - 05/17/22 13:04 05/17/22 16:30 Temperature 98.4 F 98.4 F Pulse Rate 82 90 Respiratory Rate 18 18 Blood Pressure 99/62 97/60 Pulse Oximetry 98 98 Oxygen Flow Rate 0 0 Oxygen Delivery Method Room Air Oxygen Flow Rate 0 Narrative Exam Narrative: GEN: alert male, mildly agitated, calm when questions were answered. HEENT: moist mucous membranes, PERRL NECK: trachea midline, no JVD CV: regular rate and rhythm, no murmurs PULM: clear bilaterally ABD: soft, nontender, nondistended, no organomegaly EXT: warm and well perfused with no edema NEURO: awake, alert, oriented, continued resting tremor and worsened with movement, slightly worse than day before. Objective Labs Result Diagrams: 05/16/22 04:45 05/16/22 04:45 [facility] Medical History (Updated 05/09/22 @ 15:44 by Belem Solano RN) Alcoholism Atrial fibrillation BPH (benign prostatic hyperplasia) Broken ribs Chronic back pain Collapsed lung Contraindication to anticoagulation therapy Depression Dizziness Former smoker Frequent falls Heart failure with reduced ejection fraction History of blood transfusion Hypertension Substance abuse Surgical History (Updated 05/09/22 @ 14:56 by Belem Solano RN) H/O adenoidectomy H/O colonoscopy with polypectomy History of inguinal hernia repair, bilateral Hx of tonsillectomy Social History household members: none Smoking Status: Former smoker alcohol intake: current Assessment & Plan Assessment & Plan narrative: 1. Alcohol dependence with withdrawal Patient last drink 3 days prior to admission.? He does continue to have significant weakness but decreased tremor. He also has an underlying essential tremor discussed below.? No need for benzodiazepines in the last 2 days.? Continues to require significant assistance from staff with his mobility.? Continue thiamine, multivitamin and folate. -librium taper, reduced to 25 mg BID today then stop tomorrow. 05/12 -physical therapy has evaluated him and recommended care home facility due to his ongoing weakness. -will attempt to increase propranolol again, hold metoprolol in attempt to improve essential tremor in hopes of improving mobility for possible discharge home. 2. AFib with RVR RVR has now been controlled with intermittent episode on telemetry primarily with movement.? Patient is on daily aspirin.? Resumed his usual home dose of metoprolol with good effect however will attempt propranolol for essential tremor. His previous reaction was GI upset so hopefully he can tolerate a lower dose. RVR may have been in setting of withdrawal. CHADS2 Vasc score less than 2. - trialed diltiazem but more hypotensive today, will hold. 3. Left-sided rib fracture secondary to a fall with trace traumatic hemothorax Holding chemical DVT prophylaxis.? Patient remained stable without symptoms. 4. BPH Continue Flomax. 5. Thrombocytopenia Platelet count is gradually improving and is up today.? Suspected etiology is marrow suppression from alcohol. 6. Hypokalemia Corrected.? Continue to monitor.? Magnesium level has been normal. 7. Peripheral neuropathy Increase gabapentin up to 600 mg t.i.d. as requested. 8. Essential tremor - management as noted above in problem 1. - continue to increase propranolol for symptom control as tolerated (previously developed diarrhea with high doses), currently 20 mg BID Code status Full Prophylaxis Chemical prophylaxis deferred secondary to traumatic hemothorax Disposition Possible [facility] care placement. Will continue to work on mobility as he has complex home social environment as well. Time Spent With Patient Critical Care time: I spent a total of [] minutes of critical care time on this patient's care today; this time is exclusive of procedural time. Quality VTE Deep Vein Thrombosis/Pulmonary Embolism Present on Admission: No
[2022-05-17 20:00] VITALS: BP 102/65; PULSE 92; RESP 18; TEMP 37.2; O2SAT 96
[2022-05-17] MEDS: TAMSULOSIN 0.4 MG CAPSULE 0.8 MG PO (20:35)
[2022-05-18] VITALS: BP 91/58; PULSE 85; RESP 17; TEMP 35.9; O2SAT 96
[2022-05-18 04:00] VITALS: BP 96/54; PULSE 86; RESP 16; TEMP 36.2; O2SAT 95
[2022-05-18 07:55] VITALS: BP 92/62; PULSE 66; RESP 18; TEMP 36.6; O2SAT 97
--- NOTE | 2022-05-18 09:29 | PM.DS.1 ---
History of Present Illness History of Present Illness Date Patient Seen: 05/08/22 Chief complaint: Withdrawal ETOH Narrative: Per admitting provider: Dawson Ojeda is a 61yo M with PMH of A-fib on baby aspirin, alcohol dependence, essential tremor, BPH and depression who presents with alcohol withdrawals and A-fib RVR. Patient has drank alcohol since age 8 years old and has been an alcoholic all his life. He has had 3 prior periods of sobriety with the longest being 5 years and the most recent being in Apr. He has drank everyday since then up to 12 pack of beer daily. Last drink he says was saturday 05/05 which was 72hrs ago. Denies any history of withdrawal seizures. Doesn't use drugs or smoke cigarettes. Says he had a fall at home after tripping 2 weeks ago and has some left rib pain. Denies CP, SOB, NV, diarrhea or abd pain. In the ED found to be in A-fib RVR up to 160. Given dilt IV pushes with improvement to 120's. EtOH level 122. Elevated LFT's. CXR with left sided 8-9 rib fractures and trace hemothorax. Head CT negative. Discharge Providers Provider Date of admission: 05/08/22 15:41 Discharge Date: 05/18/22 Primary care physician: Doctor Bharathi MD Consults: 05/08/22 17:49 Consult to Dietitian, Adult Routine Comment: Reason For Exam: Assessed as high risk 05/08/22 18:55 Consult to BOILERMAKER MECHANIC - Armhole Feller Handstitching Machine Routine Comment: 05/10/22 12:28 Consult to Occupational Therapy Evaluate & Treat Comment: Physician Instructions: Evaluate and treat Consult to Physical Therapy Evaluate & Treat Comment: Physician Instructions: Evaluate and Treat 05/17/22 13:23 Consult to Physical Therapy Evaluate & Treat Comment: FWW to patient for home use Physician Instructions: distribute FWW for home use Discharge provider: Samir Amin MD Summary Hospital Course Discharge Diagnosis: 1. Alcohol dependence with withdrawal 2. Afib with RVR 3. Left sided rib fractures with trace hemothorax 4. BPH 5. Thrombocytopenia 6. Hypokalemia Hospital Course: Mr. Ojeda came in with fall, alcohol withdrawal, rib fracture and afib with RVR. He also a tremor which improved with propanolol. His heart rate improved with rate control. He was on a CIWA protocol and required a librium taper. He was ultimately discharged with beta-blockers, and mvi, thiamine, folate for his alcohol abuse. Exam Vital Signs (past 8 hours): Oxygen Delivery Method Room Air Oxygen Flow Rate 0 Narrative Exam Narrative: GEN: alert male CV: irregular PULM: clear bilaterally ABD: soft, nontender, nondistended, no organomegaly Objective Labs Result Diagrams: 05/16/22 04:45 05/16/22 04:45 [facility] Medical History (Updated 05/09/22 @ 15:44 by Belem Solano RN) Alcoholism Atrial fibrillation BPH (benign prostatic hyperplasia) Broken ribs Chronic back pain Collapsed lung Contraindication to anticoagulation therapy Depression Dizziness Former smoker Frequent falls Heart failure with reduced ejection fraction History of blood transfusion Hypertension Substance abuse Surgical History (Updated 05/09/22 @ 14:56 by Belem Solano RN) H/O adenoidectomy H/O colonoscopy with polypectomy History of inguinal hernia repair, bilateral Hx of tonsillectomy Social History household members: none Smoking Status: Former smoker alcohol intake: current Discharge Plan Discharge Plan Patient Disposition: Home Discharge orders & Medications Prescriptions: New multivitamin with folic acid [Tab-A-Mindi] 400 mcg Tablet 1 tab PO DAILY Qty: 30 0RF folic acid 1 mg Tablet 1 mg PO DAILY Qty: 30 0RF thiamine mononitrate (vit B1) 100 mg Tablet 100 mg PO DAILY Qty: 30 0RF propranolol 10 mg Tablet 20 mg PO BID Qty: 120 0RF Continued aspirin 81 mg Tablet 81 mg PO DAILY gabapentin 600 mg Tablet 600 mg PO TID cyclobenzaprine 10 mg Tablet 10 mg PO DAILY PRN (Reason: muscle spasms) hydrocodone-acetaminophen 5-325 mg Tablet 1 tab PO DAILY tamsulosin [Flomax] 0.4 mg Capsule 0.4 mg PO BEDTIME Follow up/Referrals: Doctor Garvin MD [Primary Care Provider] - Diet/Activity/Treatments Diet: Regular Discharge Data Primary Care Provider: Doctor Bharathi Quality VTE Deep Vein Thrombosis/Pulmonary Embolism Present on Admission: No
[2022-05-18] MEDS: LIDOCAINE PATCH 1 EACH ADH..PATCH TOP (10:00)
[2022-05-18] MEDS: FOLIC ACID 1 MG TABLET PO (10:00)
[2022-05-18] MEDS: GABAPENTIN 600 MG TABLET PO ×2 (10:00→14:51)
[2022-05-18] MEDS: MULTIVITAMIN 1 TABLET 1 TAB PO (10:00)
[2022-05-18] MEDS: ASPIRIN EC 81 MG TABLET PO (10:00)
[2022-05-18] MEDS: THIAMINE 100 MG TABLET PO (10:00)
[2022-05-18] MEDS: SENNOSIDES 8.6 MG TABLET PO (10:00)
--- NOTE | 2022-05-18 10:24 | PT.IPTN ---
Current Diagnoses Alcohol dependence with withdrawal, unspecified (05/08/22) Physical Therapy Treatment Note M2 PT-IP Current Condition Start: 05/10/22 15:52 Freq: NEEDED Status: Active Protocol: Document 05/18/22 09:54 SP (Rec: 05/18/22 15:20 SP [id number]) Physical Therapy Current Condition Current Condition Evaluation Date 05/10/22 Treatment Diagnosis alcohol withdrawal; A-fib; difficulty in walking Onset Date 05/08/22 M3 PT-IP Subjective Start: 05/10/22 15:52 Freq: NEEDED Status: Active Protocol: Document 05/18/22 09:54 SP (Rec: 05/18/22 15:20 SP [id number]) Subjective Physical Therapy Visit Type Type Treatment Note Visit Start Time 09:54 Visit Stop Time 10:24 Total Visit Minutes 30 Number of COMMUNITY PHARMACIST Visits 5 Physical Therapy Visit Comments Patient Comments Pt upset when arrived, was given material regarding [facility] for DC location when medically stable to leave. Pt reports his BLEs continue to be weak in standing and haven' t fully recovered from falling hard face down and hitting his head. Pt requested speak with Hospitalist, COMMUNITY PHARMACIST notified nursing to let physican know pt request. Patient Goals More assessment and or feedback on testing results of head MRI and findings on why legs are so weak, worse than pre fall. Therapy Pain Assessment Location Ribs Intensity 2 Description Aching M4 PT-IP Mobility and Gait Start: 05/10/22 15:52 Freq: NEEDED Status: Active Protocol: Document 05/18/22 09:54 SP (Rec: 05/18/22 15:20 SP [id number]) PT-Transfer Assessment Sit to and From Stand Sit to and from Stand Standby Assistance,Use of Upper Extremities Equipment Transfer Assistive Device Gait Belt,Front Wheeled Walker Orthotic/Prosthetic Devices or Brace: No Transfers Transfer Destination Chair Transfer Technique ambulated with FWW Transfer Ability Level of Assist Standby Assistance,Use of Upper Extremities Comments Mobility Comments Pt was up in chair, asked that COMMUNITY PHARMACIST ask nurse when will be gettiing his morning meds, COMMUNITY PHARMACIST notified nursing. Pt agreeable to working with therapy. Scoot to EOchair, COMMUNITY PHARMACIST donned gait belt, STS proper use BUEs on chair arms come to stand, gait further distance into hallway approx 160 ft total w/ FWW, occasional cues for chest lift tall posturing and to allow increase stride/ foot clearance, maintains 60% of the time, then returns to LLE> RLE shuffle stepping, improves corrections with cues. Pt went to hallway L window, back to door then back 1/2 colvin distance SBA, stable during pivots, no sway or LOB. Pt returned to chair, self verbalized pivot w/ FWW and back up fully and reach BUE slow descent sBA, no outside cues required. Pt had call light and all needs in reach before left. Care mgt spoke with pt in hallway and was discussion possibly SNF assessment in afternoon if able to accept. Pt in better spirits before left that will be ableto get more PT at a SNF than [facility] for improvement return to PLOF safety w/ FWW. COMMUNITY PHARMACIST saw DC orders and dispensed FWW for improvement in safer mobility supoprt, due after tx pt plan leave with friend to [facility] was discussed. Gait Assessment Gait Gait Assistance Required: Standby Assistance Distance (Feet) 160 Assistive Devices Assistive Device Gait Belt,Front Wheeled Walker Orthotic/Prosthetic Devices or Brace: No Gait Deviations General Gait Pattern Antalgic,Decreased Stride Length,Decreased Feet Clearance,Flexed Trunk,Narrow Based Gait,Step-to Gait Factors Limiting Gait Function Factors Limiting Gait Function Decreased Activity Tolerance, Decreased Strength,Difficulty Following Directions,Limited Range of Motion,Poor Balance, Poor Safety Awareness Comments Gait Comments see mobility comments Stair Climbing Assessment Comments Stair Climbing Comments no stairs to assess PT-Balance Assessment Sitting Balance and Reactions Static Sitting Balance Ability Normal Dynamic Sitting Balance Ability Fair Standing Balance and Reactions Static Standing Balance Ability Fair Dynamic Standing Balance Ability Fair Device Used FWW M5 PT-IP Objective Assessments Start: 05/10/22 15:52 Freq: NEEDED Status: Active Protocol: Document 05/10/22 15:00 AB (Rec: 05/10/22 16:12 AB [id number]) Orientation Orientation/Cognition Level of Alertness Alert Orientation Name Safety Awareness Decreased Safety Awareness Memory Description Short Term Impaired Comments with confusion Gross Range of Motion Lower Extremity ROM Assessment Within Functional Limits Strength Lower Extremity Strength Hip 4-/5 Knee 3+/5 Sensation Assessment Sensation Gross Sensation Right LE Impaired,Left LE Impaired Sensation Description Numbness Comments Sensation Comments chronic bilateral feet neuropathy Muscle Tone Muscle Tone WNL Yes M6 PT-IP Treatment Start: 05/10/22 15:52 Freq: NEEDED Status: Active Protocol: Document 05/18/22 09:54 SP (Rec: 05/18/22 15:20 SP [id number]) Physical Therapy Treatment Education Education Provided Safety M7 PT-IP Assessment and Plan Start: 05/10/22 15:52 Freq: NEEDED Status: Active Protocol: Document 05/18/22 09:54 SP (Rec: 05/18/22 15:20 SP [id number]) PT Summary Assessment and Plan Potential Rehabilitation Potential Fair Status of Condition at Evaluation Evolving Summary Impairments Pain,ROM,Strength,Balance, Coordination,Sensation,Tone, Cognition,Bed Mobility, Transfers,Gait,Activity Tolerance Progress Towards Goals Progressing Toward Goals,Slow Progress due to Activity Tolerance,Slow Progress - Other Assessment Summary Pt continues to make improvements, SBA but continues to require cues for posturing, foot clearance L>RE , increase stride more semi tandem today. COMMUNITY PHARMACIST continues to recommend HHPT / vs SNF due to cuing required lesson foot scuffing ground, body closer to FWW demonstrates potential fall risk. Will continue to assess progress. Goals Bed Mobility Goal Standby Assistance Transfer Goal Minimal Assistance,Front Wheeled Walker Gait Goal Minimal Assistance,Front Wheel Walker Gait Distance 50 Other Goals improve bed mobility mod I improve transfers and ambulation using FWW 100 ft SBA Days to Meet Goals 10 Frequency of Treatment Frequency Of Treatment Once a Day Treatment Plan Physical Therapy Treatment Plan Bed Mobility Training,Transfer Training,Gait Training, Therapeutic Exercise,Balance Retraining,Discharge Planning, Hot or Cold Pack,Neuromuscular Re-ed,Coordination Retraining ,Manual Therapy Other Recommendations and Next Treatment transfers, gait further Focus distance w/FWW, curb mgt w/ FWW for safe community mobility gait hx homeless, balance activities seated/ standing for improved stability. Precautions Other Precautions falls Recommendations To Nursing Amount of Assist Needed Standby Assistance Discharge Recommendations PT Discharge Recommendations Home with / Assist Available,Home Health,SNF Rehab Equipment Needed for Home Before Dispensed FWW, told pt going Discharge to [facility] with friend to transport him. Transportation Needs at Discharge Private Vehicle
--- NOTE | 2022-05-18 11:02 | CM.DPNOTE ---
Addendum entered by Karime Richardson R.N. 05/18/22 13:47: Patient's friend Baldemar to pick him up this afternoon per staff. He will stay at [facility] where his vehicle is and go to catch [place] ferry tomorrow. Staff is providing voucher and priority board for tomorrow. JOHN Original Note: Discharge Planning Note: Patient just finished ambulating with [facility] INFORMATICS PHARMACIST with walker and has been cleared. Patient has been living in his truck on Saturday, his daughter also lives in town there. He has off and on been staying at [facility] in town here. Lorelei and I met with patient in his room. We informed patient that he is medically cleared to be discharged. We encouraged him to call his motel and reserve a room. He states his truck is at the [facility]. He has a friend who works at the motel, Baldemar, who he has texted for a ride. Plan: Check back in with patient, when calls/arrangements are made. Letty Richardson RN
[2022-05-18 12:00] VITALS: BP 122/86; PULSE 80; RESP 20; TEMP 36.3; O2SAT 94
--- NOTE | 2022-05-18 18:22 | PC.NURSE ---
Pt is A&Ox3, VSS, afebrile. SBP slightly decreased this a.m. <100, and held scheduled propanolol. notified. Pt is ambulating about in his room and colvin this a.m. slightly unsteady. He is cleared medically for discharge home with FWW today. He verbalizes understanding of discharge instructions, and recommendations to follow up with PCP closely. He is knowledgeable of his discharge medications and expresses that he does not want to drink alcohol anymore. He continues with moderate tremors of his hands yet states they have improved immensely. He calls many friends and family for a ride home and reports his friend lisette will arrive at 4 pm to take him to an inn. He is escorted via w/ch to private vehicle with her at 1640 this afternoon with all of his belongings, prescriptions and new FWW.
== END 2022-05-18 16:40 | disposition home or self-care (01) | DRG 896 ==
LOC: ED 14:58 → AC 15:42
PROVIDERS: Family Medicine; Internal Medicine; Admitting Provider Student in an Organized Health Care Education/Training Program; Emergency Provider Emergency Medicine; Referring Provider Emergency Medicine; Visit Provider Student in an Organized Health Care Education/Training Program
DX: F10.239 Alcohol dependence with withdrawal, unspecified (principal); S27.1XXA Traumatic hemothorax, initial encounter; S22.42XA Multiple fractures of ribs, left side, initial encounter for closed fracture; I48.91 Unspecified atrial fibrillation; N40.0 Benign prostatic hyperplasia without lower urinary tract symptoms; E87.6 Hypokalemia; G62.9 Polyneuropathy, unspecified; D69.6 Thrombocytopenia, unspecified; M54.9 Dorsalgia, unspecified; G89.29 Other chronic pain; W01.0XXA Fall on same level from slipping, tripping and stumbling without subsequent striking against object, initial encounter; Y90.6 Blood alcohol level of 120-199 mg/100 ml; Z87.891 Personal history of nicotine dependence; Z20.822 Contact with and (suspected) exposure to COVID-19
CPT/HCPCS: 36415; 36592; 70450; 71101; 80048; 80053; 80320; 82550; 82553; 83605; 83690; 83735; 83880; 84484; 85007; 85025; 85610; 85730; 87635; 93005; 93010; 96374; 96375; 96376; 97110; 97116; 97163; 97166; 97530; 97535; 99284; C9803; J2060; J2405; J2560; J3475